=== PATIENT | female | born 1950 | race Caucasian/White ===

== ENCOUNTER → 2019-05-15 19:13 | Outpatient (CLI) | payer MEDICARE, OTHER, SELFPAY ==
--- NOTE | 2019-05-15 19:15 | DI.RAD.S_ITS ---
PROCEDURE: XR FOOT RT MIN 3V INDICATIONS: Right foot pain TECHNIQUE: 3 views of the foot were acquired. COMPARISON: [facility], , FOOT 3V RIGHT, 04/15/2016, 19:25. FINDINGS: Bones: No fractures or dislocations. No suspicious bony lesions. Accessory ossicle lateral to the cuboid bone. Soft tissues: No tibiotalar joint effusion. Achilles tendon appears normal. IMPRESSION: Accessory ossicle lateral to the cuboid bone, no fracture or traumatic subluxation found. Dictated by: Rafa Duron M.D. on 05/15/2019 at 19:52 Approved by: Rafa Duron M.D. on 05/15/2019 at 19:53
== END ==
PROVIDERS: Family Provider Registered Nurse; PCP Registered Nurse; Visit Provider Physician Assistant
DX: M79.671 Pain in right foot (principal)
CPT/HCPCS: 73630

== ENCOUNTER → 2019-09-09 15:27 | Outpatient (CLI) | payer MEDICARE, OTHER, SELFPAY ==
--- NOTE | 2019-09-09 | DI.RAD.S_ITS ---
PROCEDURE: XR CERVICAL SPINE 2V OR 3V INDICATIONS: CERVICALGIA TECHNIQUE: 3 view(s) of the cervical spine were acquired. COMPARISON: None. FINDINGS: Bones: No fractures or dislocations to the C7-T1 level. The lateral masses of C1 appear intact on the odontoid view. No suspicious bony lesions. Multilevel disc space narrowing is present most significant at C4-5, C5-6 and C6-7. Small anterior osteophytes are present. Multilevel uncovertebral arthropathy is present. Soft tissues: No prevertebral soft tissue swelling. IMPRESSION: Multilevel degenerative change most prominent from C4-5 through C6-7. Dictated by: Huma Bravo M.D. on 09/09/2019 at 16:59 Approved by: Huma Bravo M.D. on 09/09/2019 at 17:01
== END ==
PROVIDERS: PCP Registered Nurse; Visit Provider Registered Nurse
DX: M54.2 Cervicalgia (principal); M47.812 Spondylosis without myelopathy or radiculopathy, cervical region
CPT/HCPCS: 72040

== ENCOUNTER → 2020-11-24 14:10 | Outpatient (CLI) | payer MEDICARE, OTHER, SELFPAY ==
--- NOTE | 2020-11-24 14:17 | DI.RAD.S_ITS ---
PROCEDURE: XR LUMBAR SPINE 2-3V INDICATIONS: pain in shoulders and lumbar area TECHNIQUE: 3 views of the lumbar spine were acquired. COMPARISON: None. FINDINGS: Bones: No fracture. Multilevel degenerative endplate sclerosis and spurring. Diffuse facet arthropathy. Trace retrolisthesis of L1 on L2 and grade 1 antral anterolisthesis of L4 on L5. Moderate narrowing of the L5-S1 disc space as well as the T12-L1 and L1-L2 disc spaces. Minimal levocurvature. Soft tissues: Overlying bowel gas pattern is normal. No suspicious soft tissue calcifications. IMPRESSION: Diffuse lumbar spondylosis and facet disease. Multilevel spondylolisthesis as above. Dictated by: Poli Schuster M.D. on 11/24/2020 at 15:02 Approved by: Poli Schuster M.D. on 11/24/2020 at 15:06
--- NOTE | 2020-11-24 14:18 | DI.RAD.S_ITS ---
PROCEDURE: XR SHOULDER RT MIN 2V INDICATIONS: pain in shoulders and lumbar area TECHNIQUE: 3 views of the shoulder were acquired. COMPARISON: None. FINDINGS: Bones: No fracture. Mild AC and glenohumeral joint degeneration. Soft tissues: No suspicious soft tissue calcifications. IMPRESSION: Degenerative joint disease. If the patient's pain or other symptoms persist, consider further evaluation with MRI Dictated by: Poli Schuster M.D. on 11/24/2020 at 15:23 Approved by: Poli Schuster M.D. on 11/24/2020 at 15:29
--- NOTE | 2020-11-24 14:19 | DI.RAD.S_ITS ---
PROCEDURE: XR SHOULDER LT MIN 2V INDICATIONS: A TECHNIQUE: 3 views of the shoulder were acquired. COMPARISON: [facility], CR, CHEST 1 VIEW, 04/26/2017, 0:31 FINDINGS: Bones: [id number] left shoulder joint degeneration. No fracture Soft tissues: 5 mm loose body projects adjacent to the superior glenoid. IMPRESSION: [id number]-ju-[id number] left shoulder joint degeneration Possible loose body projects adjacent to the superior glenoid. Dictated by: Poli Schuster M.D. on 11/24/2020 at 15:17 Approved by: Poli Schuster M.D. on 11/24/2020 at 15:23
== END ==
PROVIDERS: PCP Registered Nurse; Referring Provider Registered Nurse; Visit Provider Registered Nurse
DX: M47.816 Spondylosis without myelopathy or radiculopathy, lumbar region (principal); M25.511 Pain in right shoulder; M25.512 Pain in left shoulder; M51.36 Other intervertebral disc degeneration, lumbar region
CPT/HCPCS: 72100; 73030

== ENCOUNTER 2021-01-15 17:25 | Observation (INO) | payer MEDICARE, OTHER, SELFPAY ==
[2021-01-15] VITALS (14 sets, daily range): BP systolic 116–133; BP diastolic 59–76; PULSE 62–86; RESP 18–27; TEMP 37.3; O2SAT 97–100; BMI 31.0
--- NOTE | 2021-01-15 18:43 | ED.ABDPAIN ---
HPI - Abdominal Pain General Chief Complaint: Abdominal Pain Stated Complaint: Lower Abdominal Time Seen by Provider: 01/15/21 18:26 Source: patient Mode of arrival: Family Vehicle Limitations: no limitations History of Present Illness HPI narrative: The patient has onset of lower abdominal pain, starting yesterday. She has decreased appetite. She denies nausea, vomiting diarrhea. She has normal BMs. She denies dysuria. She does have mild back pain. She had fever yesterday. She does have a history of pyelonephritis. However, pain seems to focus in the LLQ. She has no history of colitis. She has undergone a uterine suspension procedure, no other abdominal or pelvic surgeries. She has no chronic bowel disease. She has no headache, cough or sore throat. She denies dyspnea. Related Data Home Medications Medication Instructions Recorded Confirmed GLUCOSAMINE/CHONDROITIN SULF A 1 cap PO QDAY #0 04/15/16 01/15/21 levothyroxine 137 mcg PO QDAY #90 04/15/16 01/15/21 liothyronine [Cytomel] 5 mcg PO BID #0 tab 04/15/16 01/15/21 lutein 20 mg PO QDAY #0 04/15/16 01/15/21 lysine 500 mg PO QDAY #0 04/15/16 01/15/21 estradiol 1 applic VAGINAL 2XW 12/08/20 01/15/21 Allergies Allergy/AdvReac Type Severity Reaction Status Date / Time ampicillin [AMPICILLIN] Allergy Unknown Verified 01/15/21 17:45 hydrocodone [HYDROCODONE] Allergy Unknown Verified 01/15/21 17:45 morphine [MORPHINE] Allergy Unknown Verified 01/15/21 17:45 Penicillins [PENICILLINS] Allergy Unknown Verified 01/15/21 17:45 Sulfa (Sulfonamide Allergy Unknown Verified 01/15/21 17:45 Antibiotics) [SULFA (SULFONAMIDE ANTIBIOTICS)] Review of Systems Constitutional Constitutional: Reports body ache(s), Denies chills, Reports fatigue, Denies fever(s), Denies headache(s) and Denies weakness ENT Ears, Nose, Mouth, and Throat: Denies vertigo, Denies dizziness, Denies headache(s) and Denies mouth pain Cardiovascular Cardiovascular: Denies chest pain, Denies lightheadedness and Denies dyspnea Respiratory Respiratory: Denies cough, Denies dyspnea and Denies wheezing Gastrointestinal Gastrointestinal: Reports as per HPI Genitourinary Genitourinary: Denies dysuria Genitourinary: Denies dysuria Musculoskeletal Musculoskeletal: Denies back pain Integumentary/Breasts Skin/Breast: Denies lesions and Denies rash Neurologic Neurologic: Denies vertigo, Denies dizziness, Denies headache(s) and Denies weakness Psychiatric Psychiatric: Reports anxiety Endocrine Endocrine: Reports fatigue Allergic/Immunologic Allergic/Immunologic: Denies wheezing Patient History Medical History Hypothyroidism Surgical History History of uterine suspension procedure Social History household members: none Smoking Status: Never smoker alcohol intake: current Smoking Status: Never smoker alcohol intake frequency: 0-2 drinks per day Substance Use Type: does not use Exam Initial Vital Signs Initial Vital Signs: Vital Signs Temperature 99.1 F 01/15/21 17:41 Pulse Rate 86 01/15/21 17:41 Respiratory Rate 18 01/15/21 17:41 Blood Pressure 133/69 01/15/21 17:41 Pulse Oximetry 98 01/15/21 17:41 Const General: cooperative and well developed Nutritional Appearance: well nourished [facility] Head: normocephalic and atraumatic Eyes Conjunctivae: other (No icterus) Resp Auscultation: clear to auscultation bilaterally Cardio Rate: regular rate Rhythm: regular rhythm Heart Sounds: S1 normal and S2 normal GI Other: L LQ tenderness with guarding, no rebound. No palpable masses. Normal bowel sounds. No masses. Back/Spine/Pelvis Back: No CVA tenderness Skin Lesions: no lesions Rashes: no rashes Neuro General: patient alert, patient oriented x3, gait normal and no focal motor deficits Speech: speech normal Extrem General: full ROM, no clubbing, cyanosis or edema, no pedal edema and no calf tenderness Psych Appearance: well kempt Mental Status: mental status grossly normal Attitude: cooperative Thought Content: normal and suicidality Judgment: judgment good Course Course Course Narrative: The patient was found to have sigmoid diverticulitis with microperforation. She was started on Levaquin and Flagyl. The patient has great anxiety. She initially denied an IV. She was trying to hand pick antibiotics claim she had many allergies. She wanted to not receive contrast because of fear of allergies. Benadryl was given prior to contrast, there were no complications. Similar conversations occur discussing the diagnosis, as well as the need for antibiotics she is not familiar with. She eventually agreed to receive medications. Hospitalist, LINETTE Schuster was contacted for the admission. Surgery, , was consulted. The patient will likely be effectively treated with IV antibiotics, the surgery will follow the case. Orders Ordered: Acetaminophen (Acetaminophen 325 Mg Tablet) 650 mg PO Q6HR PRN PRN Reason: Fever/Mild Pain (1-3) Enoxaparin Sodium (Enoxaparin 40 Mg/0.4 Ml Syringe) 40 mg SUBCUT DAILY HELEN Sodium Chloride (Normal Saline 0.9%) 1,000 mls @ 100 mls/hr IV CONT HELEN Last Admin: 01/16/21 05:38 Dose: 100 mls/hr Documented by: ABHAY Ciprofloxacin (Cipro) 400 mg in 200 mls @ 200 mls/hr IV Q12H HELEN Metronidazole (Flagyl) 500 mg in 100 mls @ 100 mls/hr IV Q6H HELEN Last Admin: 01/16/21 05:38 Dose: 100 mls/hr Documented by: ABHAY Levothyroxine Sodium (Levothyroxine 137 Mcg Tablet) 137 mcg PO Q24H HELEN Liothyronine Sodium (Liothyronine 5 Mcg Tablet) 5 mcg PO BID HELEN Naloxone HCl (Naloxone 0.4 Mg/Ml Vial) 0.2 mg IV Q2MIN PRN PRN Reason: Opiate Reversal Ondansetron HCl (Ondansetron 4 Mg/2 Ml Inj) 4 mg IV Q8HR PRN PRN Reason: Nausea And Vomiting Last Admin: 01/16/21 01:40 Dose: 4 mg Documented by: ABHAY Discontinued Medications Diphenhydramine HCl (Diphenhydramine 50 Mg/Ml Vial) 25 mg IV NOW ONE Stop: 01/15/21 20:56 Last Admin: 01/15/21 21:14 Dose: 25 mg Documented by: LANA Diphenhydramine HCl (Diphenhydramine 50 Mg/Ml Vial) 25 mg IV NOW ONE Stop: 01/15/21 22:17 Last Admin: 01/15/21 22:29 Dose: 25 mg Documented by: LANA Sodium Chloride (Normal Saline 0.9%) 1,000 mls @ 100 mls/hr IV CONT [facility] [place] Last Infusion: 01/16/21 00:38 Dose: 100 mls/hr Documented by: Infusion: 01/15/21 23:40 Dose: 0 mls/hr Documented by: Admin: 01/15/21 21:42 Dose: 250 mls/hr Documented by: LANA Levofloxacin (Levaquin) 500 mg in 100 mls @ 100 mls/hr IV NOW ONE Stop: 01/15/21 23:15 Last Infusion: 01/16/21 00:37 Dose: 0 mls/hr Documented by: Infusion: 01/15/21 22:40 Dose: 0 mls/hr Documented by: Admin: 01/15/21 22:25 Dose: 100 mls/hr Documented by: LANA Metronidazole (Flagyl) 500 mg in 100 mls @ 100 mls/hr IV NOW ONE Stop: 01/15/21 23:15 Last Admin: 01/16/21 00:39 Dose: 100 mls/hr Documented by: ABHAY Levothyroxine Sodium (Levothyroxine 137 Mcg Tablet) 137 mcg PO Q24H [facility] Last Admin: 01/16/21 01:58 Dose: Not Given Documented by: ABHAY Levothyroxine Sodium (Levothyroxine 112 Mcg Tablet) 112 mcg PO NOW ONE Stop: 01/16/21 05:31 Last Admin: 01/16/21 05:38 Dose: 112 mcg Documented by: ABHAY Levothyroxine Sodium (Levothyroxine 25 Mcg Tablet) 25 mcg PO NOW ONE Stop: 01/16/21 05:31 Last Admin: 01/16/21 05:38 Dose: 25 mcg Documented by: ABHAY Vital Signs Vital signs: Vital Signs - 8 hr 01/15/21 17:41 01/15/21 18:10 01/15/21 18:30 Temperature 99.1 F Pulse Rate 86 73 70 Respiratory Rate 18 24 26 H Blood Pressure 133/69 Pulse Oximetry 98 97 97 01/15/21 19:00 01/15/21 19:18 01/15/21 19:30 Temperature Pulse Rate 69 68 67 Respiratory Rate 25 H 27 H 22 Blood Pressure 131/62 120/60 Pulse Oximetry 98 100 98 01/15/21 20:00 01/15/21 20:30 01/15/21 21:00 Temperature Pulse Rate 67 62 71 Respiratory Rate 22 21 22 Blood Pressure 116/59 L 122/62 120/67 Pulse Oximetry 98 99 100 MDM - Abdominal Pain Lab Data Result diagrams: 01/16/21 05:24 01/16/21 05:24 Labs: Lab Results 01/15/21 01/15/21 01/15/21 Range/Units 18:30 18:30 18:30 WBC 10.1 (4.5-11.0) X10^3/uL RBC 4.16 (4.0-5.2) X10^6/uL Hgb 12.6 (12.0-16.0) g/dL Hct 37.0 (36-46) % MCV 88.8 (80-100) fL MCH 30.3 (26-34) PG MCHC 34.1 (30-36) % RDW 13.7 (11.6-14.8) % Plt Count 248 (150-400) X10^3/uL Neut % (Auto) 71.3 (50-75) % Lymph % (Auto) 19.3 L (25-40) % [place] % (Auto) 8.0 (3-14) % Eos % (Auto) 0.8 L (2-4) % Baso % (Auto) 0.6 (0-2) % Neut # (Auto) 7200 H (4835-5600) /uL Lymph # (Auto) 2000 (7612-2297) /uL [place] # (Auto) 800 (0-900) /uL Eos # (Auto) 100 (0-450) /uL Baso # (Auto) 100 (0-100) /uL PT 12.1 (10.1-12.7) SECONDS INR 1.1 (0.9-1.3) APTT 32 (26.4-36.2) SECONDS Sodium 137 (137-145) mmol/L Potassium 3.8 (3.4-5.1) mmol/L Chloride 105 (98-107) mmol/L Carbon Dioxide 24 (22-32) mmol/L BUN 12 (7-17) mg/dL Creatinine 0.76 (0.52-1.04) mg/dL Estimated GFR > 60.0 (>60) mL/min BUN/Creatinine Ratio 15.8 (6-22) Glucose 99 (80-110) mg/dL Calcium 9.5 (8.4-10.2) mg/dL Total Bilirubin 0.6 (0.2-1.3) mg/dL AST 50 H (14-36) IU/L ALT 38 H (<35) IU/L Alkaline Phosphatase 72 (38-126) U/L Total Protein 7.3 (6.3-8.2) g/dL Albumin 4.1 (3.5-5.0) g/dL Globulin 3.2 (1.7-4.1) g/dL Albumin/Globulin Ratio 1.3 (1.0-2.8) Lipase 33 (23-300) U/L SARS-CoV-2 (PCR) (Negative) 01/15/21 Range/Units 22:40 WBC (4.5-11.0) X10^3/uL RBC (4.0-5.2) X10^6/uL Hgb (12.0-16.0) g/dL Hct (36-46) % MCV (80-100) fL MCH (26-34) PG MCHC (30-36) % RDW (11.6-14.8) % Plt Count (150-400) X10^3/uL Neut % (Auto) (50-75) % Lymph % (Auto) (25-40) % [place] % (Auto) (3-14) % Eos % (Auto) (2-4) % Baso % (Auto) (0-2) % Neut # (Auto) (8992-1819) /uL Lymph # (Auto) (8523-6135) /uL [place] # (Auto) (0-900) /uL Eos # (Auto) (0-450) /uL Baso # (Auto) (0-100) /uL PT (10.1-12.7) SECONDS INR (0.9-1.3) APTT (26.4-36.2) SECONDS Sodium (137-145) mmol/L Potassium (3.4-5.1) mmol/L Chloride (98-107) mmol/L Carbon Dioxide (22-32) mmol/L BUN (7-17) mg/dL Creatinine (0.52-1.04) mg/dL Estimated GFR (>60) mL/min BUN/Creatinine Ratio (6-22) Glucose (80-110) mg/dL Calcium (8.4-10.2) mg/dL Total Bilirubin (0.2-1.3) mg/dL AST (14-36) IU/L ALT (<35) IU/L Alkaline Phosphatase (38-126) U/L Total Protein (6.3-8.2) g/dL Albumin (3.5-5.0) g/dL Globulin (1.7-4.1) g/dL Albumin/Globulin Ratio (1.0-2.8) Lipase (23-300) U/L SARS-CoV-2 (PCR) Negative (Negative) Point of care testing: Urine Dip Bedside Urine Glucose Negative Bedside Urine Bilirubin - Negative Bedside Urine Ketone - Negative Urine Specific [place] 1.015 Bedside Urine Occult Blood - Negative Bedside Urine pH 6.0 Bedside Urine Protein - Negative Bedside Urine Urobilinogen - Negative Bedside Urine Nitrite - Negative Bedside Urine Leukocytes - Negative Esterase Imaging Data CT scan - abdomen/pelvis: Radiologist's Impression: Sigmoid diverticulitis with microperforation. Critical Care Time Critical Care Time Critical Care Time: Yes Total Critical Care Time: 45 Attestation: Critical care time included initial evaluation of patient, evaluation of lab in radiology data, and clinical decision making. I a discussed the clinical station with the patient. I made necessary calls to admitting and consulting physicians. Discharge Plan Departure Patient Disposition: Admitted as Observation Clinical Impression: Diverticulitis of intestine with perforation Qualifiers: Diverticulitis site: large intestine Diverticulitis bleeding: without bleeding Qualified Code(s): K57.20 - Diverticulitis of large intestine with perforation and abscess without bleeding Admit Date/Time: 01/15/21 22:42 Admit Provider: Nusrat Schuster
[2021-01-15 18:48] LABS: Add Manual Diff / Slide Review NO; Basophils Absolute Auto 100 /uL (0-100); Basophils Percent Auto 0.6 % (0-2); Eosinophils Absolute Auto 100 /uL (0-450); Eosinophils Percent Auto 0.8 % (2-4); Hemoglobin 12.6 g/dL (12.0-16.0); Lymphocytes Absolute Auto 2000 /uL (1100-4500); Lymphocytes Percent Auto 19.3 % (25-40); Mean Corpuscular HGB Conc 34.1 % (30-36); Mean Corpuscular Hemoglobin 30.3 PG (26-34); Mean Corpuscular Volume 88.8 fL (80-100); Monocytes Absolute Auto 800 /uL (0-900); Neutrophils Absolute Auto 7200 /uL (1500-7000); Neutrophils Percent Auto 71.3 % (50-75); Platelet Count 248 X10^3/uL (150-400); Red Blood Cell Count 4.16 X10^6/uL (4.0-5.2); Red Cell Distribution Width 13.7 % (11.6-14.8); White Blood Cell Count 10.1 X10^3/uL (4.5-11.0)
[2021-01-15 19:00] LABS: INR 1.1 (0.9-1.3); Prothrombin Time 12.1 SECONDS (10.1-12.7)
[2021-01-15 19:02] LABS: PTT Partial Thromboplastin Tim 32 SECONDS (26.4-36.2)
[2021-01-15 19:04] LABS: Alanine Aminotransferase 38 IU/L (<35); Albumin 4.1 g/dL (3.5-5.0); Albumin Globulin Ratio 1.3 (1.0-2.8); Alkaline Phosphatase 72 U/L (38-126); Aspartate Aminotransferase 50 IU/L (14-36); BUN Creatinine Ratio 15.8 (6-22); Bilirubin Total 0.6 mg/dL (0.2-1.3); Blood Urea Nitrogen 12 mg/dL (7-17); Calcium 9.5 mg/dL (8.4-10.2); Carbon Dioxide 24 mmol/L (22-32); Chloride 105 mmol/L (98-107); Estimated Glomerular Filt Rate > 60.0 mL/min (>60); Globulin 3.2 g/dL (1.7-4.1); Glucose 99 mg/dL (80-110); HEMOLYSIS 26 (0-50); Lipase 33 U/L (23-300); Potassium 3.8 mmol/L (3.4-5.1); Sodium 137 mmol/L (137-145); Total Protein 7.3 g/dL (6.3-8.2)
--- NOTE | 2021-01-15 20:54 | DI.CT.S_ITS ---
PROCEDURE: CT ABDOMEN PELVIS W CON INDICATIONS: LLq pain TECHNIQUE: After the administration of intravenous contrast, 5 mm thick sections acquired from the diaphragm to the symphysis. 5 mm coronal and sagittal reformats were acquired. For radiation dose reduction, the following was used: automated exposure control, adjustment of mA and/or kV according to patient size. COMPARISON: None. FINDINGS: Image quality: There is mild motion artifact. ABDOMEN: Lung bases: Lung bases are clear. Heart size is normal. There is a small hiatal hernia. Solid organs: A small hypodensity is demonstrated in the right hepatic lobe, measuring up to 0.5 cm. Finding is too small to characterize but likely represents a cyst. The gallbladder appears within normal limits without calcified gallstones. Biliary system is non-dilated. There are small punctate calcifications within the pancreatic head suggesting sequelae of chronic pancreatitis. No peripancreatic fat stranding or fluid collections. No pancreatic duct dilatation. The spleen is normal in size. No adrenal nodules. Kidneys demonstrate no hydronephrosis. There are bilateral extrarenal pelves. The ureters are nondistended. Peritoneum and bowel: Small bowel loops demonstrate normal wall thickness and caliber. The appendix is normal in appearance. There is colonic diverticulosis with associated diverticular and colonic wall thickening in the sigmoid colon associated with pericolonic fat stranding and a small amount of adjacent free fluid. Findings are consistent with acute diverticulitis. No discrete diverticular abscess. There are a few adjacent punctate hypodense foci suggestive of free air. Nodes and vessels: No retroperitoneal or mesenteric adenopathy by size criteria. Aorta and inferior vena cava are normal in size. Miscellaneous: No ventral hernias. PELVIS: Genitourinary: Bladder wall thickness is normal. Miscellaneous: No inguinal hernias or adenopathy. Bones: No suspicious bony lesions. No vertebral body compression fractures. IMPRESSION: 1. Sigmoid diverticulitis without evidence of diverticular abscess. A few adjacent punctate foci of suspected free air are suggestive of micro perforation. Dictated by: Jose Juan Schmidt M.D. on 01/15/2021 at 21:41 Approved by: Jose Juan Schmidt M.D. on 01/15/2021 at 21:45
[2021-01-15] MEDS: diphenhydrAMINE 50 MG/ML VIAL 25 MG IV ×2 (21:14→22:29)
[2021-01-15] MEDS: SODIUM CHLORIDE 0.9% 1,000 ML 250 ML IV (21:42)
[2021-01-15] MEDS: levoFLOXacin 500 MG/100 ML PIGGYBACK 100 MG IV (22:25)
[2021-01-15 23:44] LABS: COVID19 - ADMIT (NP swab/PCR) Negative (Negative)
--- NOTE | 2021-01-15 23:48 | PC.NURSE ---
Pt to room 225 from E.R. via stretcher. Able to transfer and toilet self independently. Ice chips provided to pt per request. BL calf scd's placed with rationale provided to pt. IV levaquin infusing as per E.R. to left ac iv site without difficulty. Pt oriented to call light and instructed not to attempt out of bed independently.
[2021-01-16 00:16] VITALS: BP 135/72; PULSE 84; RESP 16; TEMP 36.7; O2SAT 100
[2021-01-16] MEDS: metroNIDAZOLE 500 MG/100 ML PIGGYBACK 100 MG IV ×3 (00:39→12:16)
--- NOTE | 2021-01-16 00:46 | P.HP_ITS ---
History of Present Illness History of Present Illness Date Patient Seen: 01/16/21 Time Patient Seen: 00:46 Chief complaint: Lower Abdominal Narrative: Angelica Stewart is a 71-year-old female with hypothyroidism and a number of different medication and food allergies presented with lower abdominal pain and fever for 2 days. She thought that she had a fever of 100 yesterday and then checked again today and was 99. The patient states her normal temperature runs 97 so if it goes up to 98 she feels febrile. She had planned wait till Sunday to see her PCP. I noted her chart that she has seen her PCP for bladder issues. She denies difficulty breathing, chest pain, upper abdominal pain, dysuria, diarrhea or constipation, she does have chronic eczema and seasonal and other types of allergies. CT ordered in the ED indicated diverticulitis with small amount of bowel wall thickening ?A few adjacent punctate foci of suspected free air are suggestive of micro perforation. She is afebrile, blood pressure 135/72, heart rate 84, respiratory rate 16, oxygen saturation of 100% on room air, she weighs 92.7 kg with a BMI of 31. She has no white count the rest of her CBC and BMP are unremarkable, she does have mildly elevated liver enzymes, AST is 50 ALT is 38. Lipase was within normal limits and COVID-19 PCR was negative. Patient History Medical History Hypothyroidism Surgical History History of uterine suspension procedure Family & Social History Social History: household members none Prior Living Arrangements House Safety & Behavioral: Feels Safe in Current Yes Environment Been Physically Hurt or No Threatened By a Person Suicidal Ideation Description None Suicide Plan Description No Plan Tobacco & Substance use: Smoking Status Never smoker alcohol intake current alcohol intake frequency a few times a month Substance Use Type does not use Meds Home Medications and Allergies Home Medications Medication Instructions Recorded Confirmed Type GLUCOSAMINE/CHONDROITIN SULF A 1 cap PO QDAY #0 04/15/16 01/15/21 History levothyroxine 137 mcg PO QDAY #90 04/15/16 01/15/21 History liothyronine [Cytomel] 5 mcg PO BID #0 tab 04/15/16 01/15/21 History lutein 20 mg PO QDAY #0 04/15/16 01/15/21 History lysine 500 mg PO QDAY #0 04/15/16 01/15/21 History estradiol 1 applic VAGINAL 2XW 12/08/20 01/15/21 History Allergies Allergy/AdvReac Type Severity Reaction Status Date / Time ampicillin [AMPICILLIN] Allergy Unknown Verified 01/15/21 17:45 hydrocodone [HYDROCODONE] Allergy Unknown Verified 01/15/21 17:45 morphine [MORPHINE] Allergy Unknown Verified 01/15/21 17:45 Penicillins [PENICILLINS] Allergy Unknown Verified 01/15/21 17:45 Sulfa (Sulfonamide Allergy Unknown Verified 01/15/21 17:45 Antibiotics) [SULFA (SULFONAMIDE ANTIBIOTICS)] Review of Systems Review of Systems ROS: Yes All systems reviewed with the patient and are negative except as otherwise documented Exam Vital Signs (past 8 hours): - 01/15/21 17:41 01/15/21 18:10 01/15/21 18:30 Temperature 99.1 F Pulse Rate 86 73 70 Respiratory Rate 18 24 26 H Blood Pressure 133/69 Pulse Oximetry 98 97 97 01/15/21 19:00 01/15/21 19:18 01/15/21 19:30 Temperature Pulse Rate 69 68 67 Respiratory Rate 25 H 27 H 22 Blood Pressure 131/62 120/60 Pulse Oximetry 98 100 98 01/15/21 20:00 01/15/21 20:30 01/15/21 21:00 Temperature Pulse Rate 67 62 71 Respiratory Rate 22 21 22 Blood Pressure 116/59 L 122/62 120/67 Pulse Oximetry 98 99 100 01/15/21 21:38 01/15/21 21:39 01/15/21 22:00 Temperature Pulse Rate 71 72 70 Respiratory Rate 27 H 20 25 H Blood Pressure 122/76 120/59 L Pulse Oximetry 99 99 98 01/15/21 22:30 01/16/21 00:16 Temperature 98.0 F Pulse Rate 83 84 Respiratory Rate 24 16 Blood Pressure 122/72 135/72 Pulse Oximetry 99 100 Oxygen Delivery Method Room Air Oxygen Flow Rate 0 Narrative Exam Narrative: Gen: Alert, oriented, well-developed 71 y.o. female, NAD HEENT: normocephalic, atraumatic, conjunctiva clear, sclera non-icteric, oral mucosa pink and moist Neck: supple, full ROM, no JVD, trachea is midline Resp: Lungs CTA, non-labored breathing CV: RRR, no murmur or rubs Abd: soft, non-tender, normoactive BTs Skin: no lesions or rashes, dry and intact Neuro: Alert and oriented X 4 w/no focal deficits. Speech clear and coherent. Extremities: moves all 4 extremities, is ambulatory, negative Kaelyn?s sign Psyche: very pleasant, normal mood and affect. Objective Labs Result Diagrams: 01/15/21 18:30 01/15/21 18:30 Labs: Laboratory Results - last 24 hr 01/15/21 01/15/21 01/15/21 18:30 18:30 18:30 WBC 10.1 RBC 4.16 Hgb 12.6 Hct 37.0 MCV 88.8 MCH 30.3 MCHC 34.1 RDW 13.7 Plt Count 248 Neut % (Auto) 71.3 Lymph % (Auto) 19.3 L [place] % (Auto) 8.0 Eos % (Auto) 0.8 L Baso % (Auto) 0.6 Neut # (Auto) 7200 H Lymph # (Auto) 2000 [place] # (Auto) 800 Eos # (Auto) 100 Baso # (Auto) 100 PT 12.1 INR 1.1 APTT 32 Sodium 137 Potassium 3.8 Chloride 105 Carbon Dioxide 24 BUN 12 Creatinine 0.76 Estimated GFR > 60.0 BUN/Creatinine Ratio 15.8 Glucose 99 Calcium 9.5 Total Bilirubin 0.6 AST 50 H ALT 38 H Alkaline Phosphatase 72 Total Protein 7.3 Albumin 4.1 Globulin 3.2 Albumin/Globulin Ratio 1.3 Lipase 33 SARS-CoV-2 (PCR) 01/15/21 22:40 WBC RBC Hgb Hct MCV MCH MCHC RDW Plt Count Neut % (Auto) Lymph % (Auto) [place] % (Auto) Eos % (Auto) Baso % (Auto) Neut # (Auto) Lymph # (Auto) [place] # (Auto) Eos # (Auto) Baso # (Auto) PT INR APTT Sodium Potassium Chloride Carbon Dioxide BUN Creatinine Estimated GFR BUN/Creatinine Ratio Glucose Calcium Total Bilirubin AST ALT Alkaline Phosphatase Total Protein Albumin Globulin Albumin/Globulin Ratio Lipase SARS-CoV-2 (PCR) Negative Assessment & Plan Assessment & Plan narrative: Angelica Stewart will be placed in observation for further treatment and management f or a first time acute diverticulitis. Diverticulitis with suspected microperforation, acute present on admission - She will receive Cipro 400 mg IV bid and metronidizole 500 mg po qid - Clears, advance as tolerated - Dr. Child has been contacted for consult Hypothyroidism, chronic and stable, present on admission - Continue home dsoes of levothyroxine 137 mg po qam and liothronine 5 mc po bid VTE prophylaxis: Wells risk score: 0 Enoxaparin 40 mg subQ daily Consults: none Dr. Child was notified in the ED and will see the patient in the am consult and involvement is appreciated. Patient is observation status as her stay is not likely to exceed 2 midnights. FEN: IV NS at 100 ml/hour, clears, BMP and magnesium in the am. Dispo: probable discharge to home with home antibiotics if able to tolerate a full liquid diet Code Status: Full code as discussed with patient COVID-19 COVID-19 status: Negative Result date/Date tested (Pos, Neg/Pending): 01/15/21 Scores Wells' Criteria for PE Clinical signs and symptoms of DVT: No PE is #1 Dx or equally likely: No Heart rate > 100: No Immobilization at least 3 days or surg in previous 4 weeks: No History of PE or DVT: No Hemoptysis: No Malignancy w/Treatment within 6 months or palliative: No Wells' PE Score total: 0 Quality VTE Deep Vein Thrombosis/Pulmonary Embolism Present on Admission: No MIPS - Admit I confirm the patient?s Advance Care Plan is present, Code status is documented, Surrogate decision maker is in patient?s record [If Yes, STOP here]: Yes
[2021-01-16] MEDS: ONDANSETRON 4 MG/2 ML INJ IV (01:40)
[2021-01-16] MEDS: LEVOTHYROXINE 25 MCG TABLET PO (05:38)
[2021-01-16] MEDS: LEVOTHYROXINE 112 MCG TABLET PO (05:38)
[2021-01-16] MEDS: SODIUM CHLORIDE 0.9% 1,000 ML 100 ML IV (05:38)
[2021-01-16 06:08] LABS: Add Manual Diff / Slide Review NO; Basophils Absolute Auto 0 /uL (0-100); Basophils Percent Auto 0.6 % (0-2); Eosinophils Absolute Auto 100 /uL (0-450); Eosinophils Percent Auto 1.2 % (2-4); Hematocrit 36.3 % (36-46); Lymphocytes Absolute Auto 2400 /uL (1100-4500); Lymphocytes Percent Auto 31.8 % (25-40); Mean Corpuscular HGB Conc 33.2 % (30-36); Mean Corpuscular Hemoglobin 29.6 PG (26-34); Mean Corpuscular Volume 89.3 fL (80-100); Monocytes Absolute Auto 600 /uL (0-900); Monocytes Percent Auto 7.9 % (3-14); Neutrophils Absolute Auto 4500 /uL (1500-7000); Neutrophils Percent Auto 58.5 % (50-75); Platelet Count 241 X10^3/uL (150-400); Red Blood Cell Count 4.07 X10^6/uL (4.0-5.2); Red Cell Distribution Width 13.8 % (11.6-14.8); White Blood Cell Count 7.7 X10^3/uL (4.5-11.0)
[2021-01-16 06:14] LABS: BUN Creatinine Ratio 14.7 (6-22); Blood Urea Nitrogen 11 mg/dL (7-17); Calcium 8.9 mg/dL (8.4-10.2); Carbon Dioxide 23 mmol/L (22-32); Chloride 108 mmol/L (98-107); Estimated Glomerular Filt Rate > 60.0 mL/min (>60); Glucose 91 mg/dL (80-110); HEMOLYSIS < 15 (0-50); Potassium 3.9 mmol/L (3.4-5.1); Sodium 139 mmol/L (137-145)
[2021-01-16 07:00] VITALS: O2SAT 98
[2021-01-16 08:05] VITALS: BP 113/68; PULSE 63; RESP 16; TEMP 36.5; O2SAT 98
[2021-01-16] MEDS: LIOTHYRONINE 5 MCG TABLET PO (08:31)
--- NOTE | 2021-01-16 08:34 | CM.DANOTE ---
DCP: Case received, EMR reviewed and met with patient. Introduced self and role. Was able to obtain information regarding patient's baseline activity level prior to hospitalization. DCP assessment completed with information currently available. Patient is a 71 year old female who admitted yesterday evening to the care of the hospitalist team. PCP: Kade SUE[facility]. Payer: confirmed: Medicare/[employer] Insurance. Patient came to the hospital via private vehicle secondary to having abdominal pain, as well as nausea and vomiting. he holds current diagnosis of sigmoid diverticulitis with no abscess. Patient also had a fever upon admission. Met with patient in her room. She was awake, alert and oriented sitting up in her bed, pleasant. Confirmed that she resides here in [place] alone, and is independent at her baseline, drives, no DME used. sHE IS anxious to see the surgeon to discuss her actual diagnosis. P: DCP to continue to follow for any needs. Patient should be able to go home when she is medically stable. Brigiad Pavon RN/[employer] Operator
--- NOTE | 2021-01-16 09:41 | PC.NURSE ---
Addendum entered by Andreea Jaeger R.N. 01/16/21 14:45: Patient tolerated full liquid diet for lunch, no abdominal pain, belching, N/V. Patient readied for discharge. Instructions given regarding f/u appointment with PCP and colonoscopy in a couple months, new abx prescriptions, diet and activity. Patient verbalized understanding. Belongings retrieved from the safe. IV removed, patient tolerated. Patient discharged via wheelchair with aide assist. Original Note: Patient A/Ox 4, resting in bed. BT active x 4, at this time patient denies abdominal pain unless LLQ palpitated. Patient tolerating clear liquid diet without N/V. Up to restroom to void. Lungs CTA, patient at 98% on RA. Pulses equal bilaterally, heart sounds WNL. Denies dizziness, lightheadedness, chest pain or weakness. Patient taking break from SCD's. Refused Lovenox after education. Ambulating independently in the room. Call light in reach.
--- NOTE | 2021-01-16 10:52 | P.CONS_ITS ---
History of Present Illness Consult details Date Patient Seen: 01/16/21 Time Patient Seen: 10:52 Chief complaint: Lower Abdominal Reason for consult: Diverticulitis Requesting provider: Nusrat Schuster Narrative: This is a 71 yo woman who came into the ER last night with 2 days of lower abdominal pain. In the ER she was found to have a normal WBC, and low grade temp. CT scan revealed diverticulitis with minimal bowel wall thickening and possible tiny foci of suspected free air, suggestive of micro perforation. She was admitted overnight, and started on IV abx. She says her pain is much better today. She reports her last colonoscopy was 2-3 years ago, and she was told she had a few diverticula, but nothing major. She does not use a bowel regimen or any fiber supplement. ROS: Denies difficulty breathing, chest pain, upper abdominal pain, dysuria, diarrhea or constipation, she does have chronic eczema and seasonal and other types of allergies. PE: GENERAL: Alert, comfortable. Nontoxic appearing. Appears stated age. Answers questions promptly and appropriately. Vital signs noted. HENT: Normocephalic, atraumatic. Hearing intact. EYES: Conjunctiva pink, sclera white, no periorbital swelling. CARDIOVASCULAR: Regular rate. No pedal edema. RESPIRATORY: Non-tachypneic, breathing comfortably on room air. GASTROINTESTINAL: Abdomen soft, NTND GENITALURINARY: No flank tenderness. MUSCULOSKELETAL: Equal tone and mass bilaterally. SKIN: Warm, dry, soft, appropriate color for ethnicity. No other lesions, rashes, or wounds. NEURO: Alert and Oriented X 3. No gross sensory deficits, or cognitive issues. PSYCH: Appropriate affect and mood. Meds Home Medications and Allergies Home Medications Medication Instructions Recorded Confirmed Type GLUCOSAMINE/CHONDROITIN SULF A 1 cap PO QDAY #0 04/15/16 01/15/21 History levothyroxine 137 mcg PO QDAY #90 04/15/16 01/15/21 History liothyronine [Cytomel] 5 mcg PO BID #0 tab 04/15/16 01/15/21 History lutein 20 mg PO QDAY #0 04/15/16 01/15/21 History lysine 500 mg PO QDAY #0 04/15/16 01/15/21 History estradiol 1 applic VAGINAL 2XW 12/08/20 01/15/21 History Allergies Allergy/AdvReac Type Severity Reaction Status Date / Time ampicillin [AMPICILLIN] Allergy Unknown Verified 01/15/21 17:45 hydrocodone [HYDROCODONE] Allergy Unknown Verified 01/15/21 17:45 morphine [MORPHINE] Allergy Unknown Verified 01/15/21 17:45 Penicillins [PENICILLINS] Allergy Unknown Verified 01/15/21 17:45 Sulfa (Sulfonamide Allergy Unknown Verified 01/15/21 17:45 Antibiotics) [SULFA (SULFONAMIDE ANTIBIOTICS)] Exam Vital Signs (past 8 hours): - 01/16/21 07:00 01/16/21 08:05 Temperature 97.7 F Pulse Rate 63 Respiratory Rate 16 Blood Pressure 113/68 Pulse Oximetry 98 98 Oxygen Delivery Method Room Air Oxygen Flow Rate [address] scan - abdomen: Radiologist's impression: [address] [id number] Scan ReportSigned Patient: Angelica Stewart MMR#: [id number]: 2Acct:[id number]/Sex: 71 / FDate of Service: 01/15/21Loc: EDAccession Number: [id number] Procedure: CT abdomen pelvis w con Ordering Provider: Timoteo Blair MD PROCEDURE: CT ABDOMEN PELVIS W CON INDICATIONS: LLq pain TECHNIQUE: After the administration of intravenous contrast, 5 mm thick sections acquired from the diaphragm to the symphysis. 5 mm coronal and sagittal reformats were acquired. For radiation dose reduction, the following was used: automated exposure control, adjustment of mA and/or kV according to patient size. COMPARISON: None. FINDINGS: Image quality: There is mild motion artifact. ABDOMEN: Lung bases: Lung bases are clear. Heart size is normal. There is a small hiatal hernia. Solid organs: A small hypodensity is demonstrated in the right hepatic lobe, measuring up to 0.5 cm. Finding is too small to characterize but likely represents a cyst. The gallbladder appears within normal limits without calcified gallstones. Biliary system is non-dilated. There are small punctate calcifications within the pancreatic head suggesting sequelae of chronic pancreatitis. No peripancreatic fat stranding or fluid collections. No pancreatic duct dilatation. The spleen is normal in size. No adrenal nodules. Kidneys demonstrate no hydronephrosis. There are bilateral extrarenal pelves. The ureters are nondistended. Peritoneum and bowel: Small bowel loops demonstrate normal wall thickness and caliber. The appendix is normal in appearance. There is colonic diverticulosis with asso ciated diverticular and colonic wall thickening in the sigmoid colon associated with pericolonic fat stranding and a small amount of adjacent free fluid. Findings are consistent with acute diverticulitis. No discrete diverticular abscess. There are a few adjacent punctate hypodense foci suggestive of free air. Nodes and vessels: No retroperitoneal or mesenteric adenopathy by size criteria. Aorta and inferior vena cava are normal in size. Miscellaneous: No ventral hernias. PELVIS: Genitourinary: Bladder wall thickness is normal. Miscellaneous: No inguinal hernias or adenopathy. Bones: No suspicious bony lesions. No vertebral body compression fractures. IMPRESSION: 1. Sigmoid diverticulitis without evidence of diverticular abscess. A few adjacent punctate foci of suspected free air are suggestive of micro perforation. Dictated by: Jose Juan Schmidt M.D. on 01/15/2021 at 21:41 Approved by: Jose Juan Schmidt M.D. on 01/15/2021 at 21:45 Labs Result Diagrams: 01/16/21 05:24 01/16/21 05:24 Labs: Laboratory Results - last 24 hr 01/15/21 01/15/21 01/15/21 18:30 18:30 18:30 WBC 10.1 RBC 4.16 Hgb 12.6 Hct 37.0 MCV 88.8 MCH 30.3 MCHC 34.1 RDW 13.7 Plt Count 248 Neut % (Auto) 71.3 Lymph % (Auto) 19.3 L [place] % (Auto) 8.0 Eos % (Auto) 0.8 L Baso % (Auto) 0.6 Neut # (Auto) 7200 H Lymph # (Auto) 2000 [place] # (Auto) 800 Eos # (Auto) 100 Baso # (Auto) 100 PT 12.1 INR 1.1 APTT 32 Sodium 137 Potassium 3.8 Chloride 105 Carbon Dioxide 24 BUN 12 Creatinine 0.76 Estimated GFR > 60.0 BUN/Creatinine Ratio 15.8 Glucose 99 Calcium 9.5 Magnesium Total Bilirubin 0.6 AST 50 H ALT 38 H Alkaline Phosphatase 72 Total Protein 7.3 Albumin 4.1 Globulin 3.2 Albumin/Globulin Ratio 1.3 Lipase 33 SARS-CoV-2 (PCR) 01/15/21 01/16/21 01/16/21 22:40 05:24 05:24 WBC 7.7 RBC 4.07 Hgb 12.0 Hct 36.3 MCV 89.3 MCH 29.6 MCHC 33.2 RDW 13.8 Plt Count 241 Neut % (Auto) 58.5 Lymph % (Auto) 31.8 [place] % (Auto) 7.9 Eos % (Auto) 1.2 L Baso % (Auto) 0.6 Neut # (Auto) 4500 Lymph # (Auto) 2400 [place] # (Auto) 600 Eos # (Auto) 100 Baso # (Auto) 0 PT INR APTT Sodium 139 Potassium 3.9 Chloride 108 H Carbon Dioxide 23 BUN 11 Creatinine 0.75 Estimated GFR > 60.0 BUN/Creatinine Ratio 14.7 Glucose 91 Calcium 8.9 Magnesium 2.0 Total Bilirubin AST ALT Alkaline Phosphatase Total Protein Albumin Globulin Albumin/Globulin Ratio Lipase SARS-CoV-2 (PCR) Negative Assessment & Plan Assessment and plan (1) Diverticulitis of intestine with perforation: Qualifiers: Diverticulitis bleeding: without bleeding Diverticulitis site: large intestine Qualified Code(s): K57.20 - Diverticulitis of large intestine with perforation and abscess without bleeding Status: Acute Assessment & Plan narrative: This is a 71 yo woman who was admitted last night with her first episode of diverticulitis. Given her normal WBC and benign exam, she is a reasonable candidate for oral abx at home. Plan: Advance diet to fulls If tolerates diet, ok to DC home on oral abx for 10 days Follow up with [facility] or with her own primary care and in store representative COVID-19 COVID-19 status: Negative Result date/Date tested (Pos, Neg/Pending): 01/16/21 Time Spent With Patient Time with patient: 25 - 35 minutes
--- NOTE | 2021-01-16 13:59 | PM.DS.1 ---
History of Present Illness History of Present Illness Date Patient Seen: 01/16/21 Time Patient Seen: 13:59 Chief complaint: Lower Abdominal Narrative: Per LINETTE Vargas: Angelica Stewart is a 71-year-old female with hypothyroidism and a number of different medication and food allergies presented with lower abdominal pain and fever for 2 days. She thought that she had a fever of 100 yesterday and then checked again today and was 99. The patient states her normal temperature runs 97 so if it goes up to 98 she feels febrile. She had planned wait till Sunday to see her PCP. I noted her chart that she has seen her PCP for bladder issues. She denies difficulty breathing, chest pain, upper abdominal pain, dysuria, diarrhea or constipation, she does have chronic eczema and seasonal and other types of allergies. CT ordered in the ED indicated diverticulitis with small amount of bowel wall thickening ?A few adjacent punctate foci of suspected free air are suggestive of micro perforation. She is afebrile, blood pressure 135/72, heart rate 84, respiratory rate 16, oxygen saturation of 100% on room air, she weighs 92.7 kg with a BMI of 31. She has no white count the rest of her CBC and BMP are unremarkable, she does have mildly elevated liver enzymes, AST is 50 ALT is 38. Lipase was within normal limits and COVID-19 PCR was negative. Discharge Providers Provider Date of admission: 01/15/21 22:42 Discharge Date: 01/16/21 Primary care physician: Kade Fernandez ND Consults: 01/15/21 23:34 Consult to Pastoral Services Routine Comment: non demoninational chemical dependency nurse visit please 01/16/21 09:00 Consult to Physician Routine Comment: Consulting Provider: Amrita Child Reason for consultation: diverticulitis w/suspected microperf Has provider been notified: Yes Discharge provider: Chalo Cancino DO Summary Hospital Course Discharge Diagnosis: Diverticulitis with suspected microperforation, acute present on admission Hypothyroidism, chronic and stable, present on admission Hospital Course: This is a 71-year-old female with a past medical history of hypothyroidism who was admitted for acute diverticulitis with suspected microperforation. She was seen by surgery the following day and recommended for outpatient management. Patient was advanced to full liquid diet which she was tolerating on the day of discharge. She had improved symptoms with antibiotics including ciprofloxacin and Flagyl given the patient's allergies. She will continue these for an additional week as an outpatient. I recommend that she follow-up with her primary care doctor early next week for continued monitoring of her diverticulitis as an outpatient. 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 Exam Vital Signs (past 8 hours): - 01/16/21 07:00 01/16/21 08:05 Temperature 97.7 F Pulse Rate 63 Respiratory Rate 16 Blood Pressure 113/68 Pulse Oximetry 98 98 Oxygen Delivery Method Room Air Oxygen Flow Rate 0 Narrative Exam Narrative: Gen: Alert, oriented, well-developed 71 y.o. female, NAD HEENT: normocephalic, atraumatic, conjunctiva clear, sclera non-icteric, oral mucosa pink and moist Neck: supple, full ROM, no JVD, trachea is midline Resp: Lungs CTA, non-labored breathing CV: RRR, no murmur or rubs Abd: soft, mild tenderness LLQ, non-distended. Skin: no lesions or rashes, dry and intact Neuro: Alert and oriented X 4 w/no focal deficits. Speech clear and coherent. Extremities: moves all 4 extremities, is ambulatory, negative Kaelyn?s sign Psyche: very pleasant, normal mood and affect. Objective Labs Result Diagrams: 01/16/21 05:24 01/16/21 05:24 Labs: Laboratory Results - last 24 hr 01/15/21 01/15/21 01/15/21 18:30 18:30 18:30 WBC 10.1 RBC 4.16 Hgb 12.6 Hct 37.0 MCV 88.8 MCH 30.3 MCHC 34.1 RDW 13.7 Plt Count 248 Neut % (Auto) 71.3 Lymph % (Auto) 19.3 L [place] % (Auto) 8.0 Eos % (Auto) 0.8 L Baso % (Auto) 0.6 Neut # (Auto) 7200 H Lymph # (Auto) 2000 [place] # (Auto) 800 Eos # (Auto) 100 Baso # (Auto) 100 PT 12.1 INR 1.1 APTT 32 Sodium 137 Potassium 3.8 Chloride 105 Carbon Dioxide 24 BUN 12 Creatinine 0.76 Estimated GFR > 60.0 BUN/Creatinine Ratio 15.8 Glucose 99 Calcium 9.5 Magnesium Total Bilirubin 0.6 AST 50 H ALT 38 H Alkaline Phosphatase 72 Total Protein 7.3 Albumin 4.1 Globulin 3.2 Albumin/Globulin Ratio 1.3 Lipase 33 SARS-CoV-2 (PCR) 01/15/21 01/16/21 01/16/21 22:40 05:24 05:24 WBC 7.7 RBC 4.07 Hgb 12.0 Hct 36.3 MCV 89.3 MCH 29.6 MCHC 33.2 RDW 13.8 Plt Count 241 Neut % (Auto) 58.5 Lymph % (Auto) 31.8 [place] % (Auto) 7.9 Eos % (Auto) 1.2 L Baso % (Auto) 0.6 Neut # (Auto) 4500 Lymph # (Auto) 2400 [place] # (Auto) 600 Eos # (Auto) 100 Baso # (Auto) 0 PT INR APTT Sodium 139 Potassium 3.9 Chloride 108 H Carbon Dioxide 23 BUN 11 Creatinine 0.75 Estimated GFR > 60.0 BUN/Creatinine Ratio 14.7 Glucose 91 Calcium 8.9 Magnesium 2.0 Total Bilirubin AST ALT Alkaline Phosphatase Total Protein Albumin Globulin Albumin/Globulin Ratio Lipase SARS-CoV-2 (PCR) Negative PFSH Medical History Hypothyroidism Surgical History History of uterine suspension procedure Social History household members: none Smoking Status: Never smoker alcohol intake: current Discharge Plan Discharge Plan Patient Disposition: Home Provider Discharge Comment: You were admitted to the hospital with diverticulitis. 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 You should follow-up with her primary care doctor in a couple of days to reassess your pain while on antibiotic therapy. Please stay on Full liquid diet today and tomorrow, can resume regular diet if improving after that. Can take tylenol for pain at home. Discharge orders & Medications Prescriptions: New ciprofloxacin HCl 500 mg tablet 500 mg PO BID 7 Days Qty: 14 RF: 0 metronidazole 500 mg tablet 500 mg PO Q8H 7 Days Qty: 21 RF: 0 ondansetron 4 mg tablet,disintegrating 4 mg PO Q8H PRN (Reason: nausea and vomiting) 10 Days Qty: 30 RF: 0 Continued lysine 500 MG tablet 500 mg PO QDAY Qty: 0 RF: 0 lutein 20 MG tablet 20 mg PO QDAY Qty: 0 RF: 0 GLUCOSAMINE/CHONDROITIN SULF A 1 cap PO QDAY Qty: 0 RF: 0 liothyronine [Cytomel] 5 MCG tablet 5 mcg PO BID Qty: 0 RF: 0 levothyroxine 137 MCG tablet 137 mcg PO QDAY Qty: 90 RF: 0 estradiol cream 1 applic vaginal 2XW RF: 0 Follow up/Referrals: Kade Fernandez ARNP [Primary Care Provider] - Diet/Activity/Treatments Diet: Full Liquid Activity: As tolerated Visit Report/Discharge Packet Instructions: Full Liquid Diet Discharge Data Primary Care Provider: Kade Fernandez Attending Provider: Nusrat Schuster VTE Deep Vein Thrombosis/Pulmonary Embolism Present on Admission: No
--- NOTE | 2021-01-24 21:09 | PC.NURSE ---
Late Entry; Flagyl infusion initiated 01/16 at 0039, complete 0140. NS infusion initiated 0538, stopped by discharge order 1405.
== END 2021-01-16 14:45 | disposition home or self-care (01) ==
LOC: ED 22:42 → AC 22:42
PROVIDERS: Emergency Medicine; Admitting Provider Nurse Practitioner Family; Emergency Provider Emergency Medicine; PCP Registered Nurse; Referring Provider Emergency Medicine; Visit Provider Nurse Practitioner Family
DX: K57.20 Diverticulitis of large intestine with perforation and abscess without bleeding (principal); F41.9 Anxiety disorder, unspecified; E03.9 Hypothyroidism, unspecified; Z20.822 Contact with and (suspected) exposure to COVID-19
CPT/HCPCS: 36415; 74177; 80048; 80053; 81003; 83690; 83735; 85025; 85610; 85730; 87635; 93005; 96361; 96365; 96366; 96375; 96376; 99225; 99284; 99291; C9803; G0378; J1200; J1956; J2405; Q9967

== ENCOUNTER 2021-10-21 04:18 | Emergency (ER) | payer MEDICARE, OTHER, SELFPAY ==
[2021-01-15 23:21] VITALS: BMI 31.0
[2021-10-21] VITALS (28 sets, daily range): BP systolic 89–150; BP diastolic 53–90; PULSE 54–141; RESP 14–25; TEMP 36.4; O2SAT 95–100; BMI 29.7
--- NOTE | 2021-10-21 04:26 | DI.RAD.S_ITS ---
PROCEDURE: XR CHEST 1V INDICATIONS: Shortness of breath TECHNIQUE: One view of the chest was acquired. COMPARISON: [facility], , CHEST 1 VIEW, 04/26/2017, 0:31. FINDINGS: Surgical changes and devices: None. Lungs and pleura: Lungs are clear. No pleural effusions or pneumothorax. Mediastinum: Mediastinal contours appear normal. Heart size is normal. Bones and chest wall: No suspicious bony lesions. Overlying soft tissues appear unremarkable. IMPRESSION: No acute cardiopulmonary disease process. Dictated by: Monisha Strickland MD, PhD on 10/21/2021 at 8:57 Approved by: Monisha Strickland MD, PhD on 10/21/2021 at 8:59
--- NOTE | 2021-10-21 04:27 | ED.GENADULT ---
HPI - General Adult <Wilfred Ingram DO - Last Filed: 10/21/21 23:29> General Chief complaint: Arrhythmia/Palpitations Stated complaint: AFIB Time Seen by Provider: 10/21/21 04:23 Source: patient and EMS Mode of arrival: EMS Limitations: no limitations History of Present Illness HPI narrative: Patient is a 71-year-old female. Has a history of hypothyroid. Last evening started feeling poorly. Is having nausea and vomiting. Tested herself for COVID and stated that her COVID test at home was positive. She denies any chest pain. No shortness of breath. Was vomiting throughout the evening and several hours prior to arrival here in the emergency department started to have lightheadedness and palpitations. EMS was called. She was found to be in AFib with RVR. She reports no prior history of this. Was given 15 mg of Cardizem EN route by EMS which improved her heart rate somewhat however was still in AFib. Related Data Home Medications Medication Instructions Recorded Confirmed GLUCOSAMINE/CHONDROITIN SULF A 1 cap PO QDAY #0 04/15/16 01/15/21 levothyroxine 137 mcg tablet 137 mcg PO QDAY #90 04/15/16 01/15/21 liothyronine 5 mcg tablet (Cytomel) 5 mcg PO BID #0 tab 04/15/16 01/15/21 lutein 20 mg tablet 20 mg PO QDAY #0 04/15/16 01/15/21 lysine 500 mg tablet 500 mg PO QDAY #0 04/15/16 01/15/21 estradiol 1 applic VAGINAL 2XW 12/08/20 01/15/21 Previous Rx's Medication Instructions Recorded meclizine 25 mg tablet 25 mg PO TID PRN #10 tab 10/21/21 promethazine 25 mg rectal 25 mg [place] Q6H PRN #12 ea 10/21/21 suppository Allergies Allergy/AdvReac Type Severity Reaction Status Date / Time ampicillin [AMPICILLIN] Allergy Unknown Verified 10/21/21 04:22 hydrocodone [HYDROCODONE] Allergy Unknown Verified 10/21/21 04:22 morphine [MORPHINE] Allergy Unknown Verified 10/21/21 04:22 Penicillins [PENICILLINS] Allergy Unknown Verified 10/21/21 04:22 Sulfa (Sulfonamide Allergy Unknown Verified 10/21/21 04:22 Antibiotics) [SULFA (SULFONAMIDE ANTIBIOTICS)] Review of Systems <Wilfred Ingram DO - Last Filed: 10/21/21 23:29> Constitutional Constitutional: Reports chills, Denies fever(s), Denies headache(s) and Reports lethargy ENT Ears, Nose, Mouth, and Throat: Denies headache(s) Cardiovascular Cardiovascular: Denies chest pain, Reports rapid heart rate, Reports lightheadedness, Reports palpitations and Reports dyspnea Respiratory Respiratory: Denies cough and Reports dyspnea Gastrointestinal Gastrointestinal: Denies change in bowel habits, Reports nausea and Reports vomiting Musculoskeletal Musculoskeletal: Reports system reviewed and no additional complaints, except as documented Integumentary/Breasts Skin/Breast: Reports system reviewed and no additional complaints, except as documented Neurologic Neurologic: Denies headache(s) Endocrine Endocrine: Reports palpitations Hematologic/Lymphatic On Anticoagulants: No Patient History <Wilfred Ingram DO - Last Filed: 10/21/21 23:29> Medical History Hypothyroidism Surgical History History of uterine suspension procedure Social History household members: none Smoking Status: Never smoker alcohol intake: current Smoking Status: Never smoker alcohol intake frequency: a few times a month Substance Use Type: does not use Exam <Wilfred Ingram DO - Last Filed: 10/21/21 23:29> Initial Vital Signs Initial Vital Signs: Vital Signs Temperature 97.6 F 10/21/21 04:26 Pulse Rate 76 10/21/21 04:26 Respiratory Rate 22 10/21/21 04:26 Blood Pressure 150/90 H 10/21/21 04:26 Pulse Oximetry 97 10/21/21 04:26 Const General: cooperative, comfortable and well developed [facility] Head: normal to inspection and normocephalic Resp Effort & Inspection: normal respiratory effort Auscultation: clear to auscultation bilaterally Cardio Rate: tachycardic Rhythm: abnormal rhythm GI Inspection: normal to inspection Skin General: no rashes or lesions noted Neuro General: patient alert, patient awake and moves all extremities Extrem General: normal to inspection and capillary refill normal Psych Appearance: grossly normal and well kempt <Minna Alvarado DO - Last Filed: 10/21/21 18:35> Initial Vital Signs Initial Vital Signs: Vital Signs Temperature 97.6 F 10/21/21 04:26 Pulse Rate 76 10/21/21 04:26 Respiratory Rate 22 10/21/21 04:26 Blood Pressure 150/90 H 10/21/21 04:26 Pulse Oximetry 97 10/21/21 04:26 Scores <Wilfred Ingram, DO - Last Filed: 10/21/21 23:29> NIH Stroke Scale Total NIH Stroke scale score: 0 <Minna Alvarado, DO - Last Filed: 10/21/21 18:35> NIH Stroke Scale Level of Conciousness: Alert, keenly responsive Ask month/age: Answers both questions correctly. Open/close eyes, close hand: Performs both tasks correctly Best gaze horizontal: Normal Visual mcpherson: No visual loss Facial palsy: Normal symetrical movement Left arm drift: No drift for full 10 sec Right arm drift: No drift for full 10 sec Left leg drift: No drift for full 5 sec Right leg drift: No drift for full 5 sec Limb ataxia: Absent Sensory on face/arms/legs: Normal, no sensory loss Best language: No aphasia, normal Dysarthria: Normal Extinction or inattention: No abnormality Total NIH Stroke scale score: 0 Course <Wilfred Ingram, DO - Last Filed: 10/21/21 23:29> Orders Ordered: Discontinued Medications Fentanyl (Fentanyl 100 Mcg/2 Ml Inj) 25 mcg IV NOW ONE Stop: 10/21/21 05:09 Last Admin: 10/21/21 08:31 Dose: Not Given Documented by: BRENDON Sodium Chloride (Normal Saline 0.9%) 1,000 mls @ 125 mls/hr IV CONT HELEN Last Infusion: 10/21/21 11:50 Dose: 125 mls/hr Documented by: Admin: 10/21/21 04:45 Dose: 125 mls/hr Documented by: BRENDON Diltiazem HCl 125 mg/ Dextrose 125 mls @ 5 mls/hr IV TITRATE HELEN; Protocol Last Titration: 10/21/21 11:50 Dose: 0 mg/hr, 0 mls/hr Documented by: Titration: 10/21/21 07:40 Dose: 0 mg/hr, 0 mls/hr Documented by: Admin: 10/21/21 06:04 Dose: 5 mg/hr, 5 mls/hr Documented by: MELISSA Meclizine HCl (Meclizine Hcl 12.5 Mg Tablet) 25 mg PO NOW ONE Stop: 10/21/21 08:36 Last Admin: 10/21/21 09:58 Dose: 25 mg Documented by: BODY Metoprolol Tartrate (Metoprolol Tartrate 5 Mg/5 Ml Inj) 5 mg IV NOW ONE Stop: 10/21/21 05:31 Last Admin: 10/21/21 08:33 Dose: Not Given Documented by: BRENDON Propofol (Propofol 200 Mg/20 Ml Vial) 100 mg IV NOW ONE Stop: 10/21/21 05:09 Last Admin: 10/21/21 08:31 Dose: Not Given Documented by: BRENDON Vital Signs Vital signs: Vital Signs - 8 hr 10/21/21 10:30 10/21/21 10:40 10/21/21 11:00 Pulse Rate 68 54 L 57 L Respiratory Rate 17 19 14 Blood Pressure 107/57 L 119/55 L Pulse Oximetry 99 96 99 10/21/21 11:20 Pulse Rate 56 L Respiratory Rate 17 Blood Pressure 105/55 L Pulse Oximetry 98 <Minna Alvarado, DO - Last Filed: 10/21/21 18:35> Orders Ordered: Discontinued Medications Fentanyl (Fentanyl 100 Mcg/2 Ml Inj) 25 mcg IV NOW ONE Stop: 10/21/21 05:09 Last Admin: 10/21/21 08:31 Dose: Not Given Documented by: BRENDON Sodium Chloride (Normal Saline 0.9%) 1,000 mls @ 125 mls/hr IV CONT HELEN Last Infusion: 10/21/21 11:50 Dose: 125 mls/hr Documented by: Admin: 10/21/21 04:45 Dose: 125 mls/hr Documented by: BRENDON Diltiazem HCl 125 mg/ Dextrose 125 mls @ 5 mls/hr IV TITRATE HELEN; Protocol Last Titration: 10/21/21 11:50 Dose: 0 mg/hr, 0 mls/hr Documented by: Titration: 10/21/21 07:40 Dose: 0 mg/hr, 0 mls/hr Documented by: Admin: 10/21/21 06:04 Dose: 5 mg/hr, 5 mls/hr Documented by: MELISSA Meclizine HCl (Meclizine Hcl 12.5 Mg Tablet) 25 mg PO NOW ONE Stop: 10/21/21 08:36 Last Admin: 10/21/21 09:58 Dose: 25 mg Documented by: BOYD Metoprolol Tartrate (Metoprolol Tartrate 5 Mg/5 Ml Inj) 5 mg IV NOW ONE Stop: 10/21/21 05:31 Last Admin: 10/21/21 08:33 Dose: Not Given Documented by: BRENDON Propofol (Propofol 200 Mg/20 Ml Vial) 100 mg IV NOW ONE Stop: 10/21/21 05:09 Last Admin: 10/21/21 08:31 Dose: Not Given Documented by: BRENDON Vital Signs Vital signs: Vital Signs - 8 hr 10/21/21 10:30 10/21/21 10:40 10/21/21 11:00 Pulse Rate 68 54 L 57 L Respiratory Rate 17 19 14 Blood Pressure 107/57 L 119/55 L Pulse Oximetry 99 96 99 10/21/21 11:20 Pulse Rate 56 L Respiratory Rate 17 Blood Pressure 105/55 L Pulse Oximetry 98 Medical Decision Making <Wilfred Ingram DO - Last Filed: 10/21/21 23:29> Lab Data Lab results reviewed: Yes I reviewed the patient's lab results. Result diagrams: 10/21/21 04:20 10/21/21 04:20 Labs: Lab Results 10/21/21 10/21/21 10/21/21 Range/Units 04:20 04:20 04:20 WBC 6.9 (4.5-11.0) X10^3/uL RBC 4.54 (4.0-5.2) X10^6/uL Hgb 13.4 (12.0-16.0) g/dL Hct 39.5 (36-46) % MCV 87.0 (80-100) fL MCH 29.6 (26-34) PG MCHC 34.0 (30-36) % RDW 13.7 (11.6-14.8) % Plt Count 258 (150-400) X10^3/uL Neut % (Auto) 64.9 (50-75) % Lymph % (Auto) 27.3 (25-40) % [place] % (Auto) 5.1 (3-14) % Eos % (Auto) 0.7 L (2-4) % Baso % (Auto) 2.0 (0-2) % Neut # (Auto) 4500 (2297-0940) /uL Lymph # (Auto) 1900 (4610-6448) /uL [place] # (Auto) 400 (0-900) /uL Eos # (Auto) 100 (0-450) /uL Baso # (Auto) 100 (0-100) /uL PT 11.3 (10.1-12.7) SECONDS INR 1.0 (0.9-1.3) APTT 35 (26.4-36.2) SECONDS Sodium 135 L (137-145) mmol/L Potassium 3.8 (3.4-5.1) mmol/L Chloride 103 (98-107) mmol/L Carbon Dioxide 24 (22-32) mmol/L BUN 17 (7-17) mg/dL Creatinine 0.72 (0.52-1.04) mg/dL Estimated GFR > 60.0 (>60) mL/min BUN/Creatinine Ratio 23.6 H (6-22) Glucose 140 H (80-110) mg/dL Calcium 10.0 (8.4-10.2) mg/dL Magnesium (1.6-2.3) mg/dL Total Bilirubin 0.6 (0.2-1.3) mg/dL AST 33 (14-36) IU/L ALT 27 (<35) IU/L Alkaline Phosphatase 67 (38-126) U/L Total Creatine Kinase (30-135) U/L CK-MB (CK-2) (<2.37) ng/mL CK-MB (CK-2) Rel Index (1.5-5.0) % Troponin I (0.01-0.034) ng/mL Total Protein 8.1 (6.3-8.2) g/dL Albumin 4.8 (3.5-5.0) g/dL Globulin 3.3 (1.7-4.1) g/dL Albumin/Globulin Ratio 1.5 (1.0-2.8) TSH (0.47-4.68) uIU/mL SARS-CoV-2 (PCR) (Negative) 10/21/21 10/21/2122 Range/Units 04:20 04:20 04:30 WBC (4.5-11.0) X10^3/uL RBC (4.0-5.2) X10^6/uL Hgb (12.0-16.0) g/dL Hct (36-46) % MCV (80-100) fL MCH (26-34) PG MCHC (30-36) % RDW (11.6-14.8) % Plt Count (150-400) X10^3/uL Neut % (Auto) (50-75) % Lymph % (Auto) (25-40) % [place] % (Auto) (3-14) % Eos % (Auto) (2-4) % Baso % (Auto) (0-2) % Neut # (Auto) (8569-4063) /uL Lymph # (Auto) (2541-3181) /uL [place] # (Auto) (0-900) /uL Eos # (Auto) (0-450) /uL Baso # (Auto) (0-100) /uL PT (10.1-12.7) SECONDS INR (0.9-1.3) APTT (26.4-36.2) SECONDS Sodium (137-145) mmol/L Potassium (3.4-5.1) mmol/L Chloride (98-107) mmol/L Carbon Dioxide (22-32) mmol/L BUN (7-17) mg/dL Creatinine (0.52-1.04) mg/dL Estimated GFR (>60) mL/min BUN/Creatinine Ratio (6-22) Glucose (80-110) mg/dL Calcium (8.4-10.2) mg/dL Magnesium 2.1 (1.6-2.3) mg/dL Total Bilirubin (0.2-1.3) mg/dL AST (14-36) IU/L ALT (<35) IU/L Alkaline Phosphatase (38-126) U/L Total Creatine Kinase 138 H (30-135) U/L CK-MB (CK-2) 2.57 H (<2.37) ng/mL CK-MB (CK-2) Rel Index 1.9 (1.5-5.0) % Troponin I < 0.012 (0.01-0.034) ng/mL Total Protein (6.3-8.2) g/dL Albumin (3.5-5.0) g/dL Globulin (1.7-4.1) g/dL Albumin/Globulin Ratio (1.0-2.8) TSH 6.14 H (0.47-4.68) uIU/mL SARS-CoV-2 (PCR) Negative (Negative) Imaging Data Chest x-ray: Radiologist's Impression: No active cardiopulmonary disease demonstrated ECG Data Attestation: I personally reviewed and interpreted this ECG as follows: Interpretation: Atrial fibrillation Ventricular rate 81 Normal axis Normal QRS Nonspecific ST T wave changes MDM Narrative Medical decision making narrative: Patient arrived a-fib with RVR. Symptoms started within the past 24 hours. Appears that it had an onset with vomiting during this time. She has never had a history of atrial fibrillation. She is not hypotensive. Patient was given diltiazem by EMS prior to arrival which did improve her rate somewhat. Patient is a candidate for cardioversion. Had a discussion with her regarding rate control versus rhythm control and cardioversion verses admission to the hospital with rate control medication. Patient expressed understanding of these options and opted for cardioversion. Consent was signed. Somewhat delay in the ability to perform the cardioversion secondary to respiratory therapy being unavailable to be present due to other patient care responsibilities in the ICU. Because there was going to be a delay patient was started on Cardizem. Care turned over to Dr. Alvarado to proceed with cardioversion and disposition. Patient signed out to me by Dr. Ingram of seen and evaluated her myself. She states yesterday she felt a little dizzy when she woke up she was able to function and do things however the dizziness got worse she started feeling nauseous and having palpitations. She had a new onset of AFib with RVR she was given diltiazem, metoprolol is back ordered. Upon my initial evaluation she continued to have palpitations. Plan was to cardiovert her. However patient spontaneously cardioverted herself and in normal sinus rhythm. Upon re-evaluation she continues to feel extremely nauseous although she has not vomited in the ED and feels that she is dizzy every time she moves. He has never had vertigo in the past. She has no numbness tingling or weakness. Her NIH stroke scale is 0. However she really feels unable to move. CT angio was negative for stroke she is feeling significantly better after meclizine. She is able to stand and ambulate in the ED. She has been out of AFib for a while still feels little bit nauseous dizziness is overall improved. <Minna Jenny, DO - Last Filed: 10/21/21 18:35> Lab Data Labs: Lab Results 10/21/21 10/21/21 10/21/21 Range/Units 04:20 04:20 04:20 WBC 6.9 (4.5-11.0) X10^3/uL RBC 4.54 (4.0-5.2) X10^6/uL Hgb 13.4 (12.0-16.0) g/dL Hct 39.5 (36-46) % MCV 87.0 (80-100) fL MCH 29.6 (26-34) PG MCHC 34.0 (30-36) % RDW 13.7 (11.6-14.8) % Plt Count 258 (150-400) X10^3/uL Neut % (Auto) 64.9 (50-75) % Lymph % (Auto) 27.3 (25-40) % [place] % (Auto) 5.1 (3-14) % Eos % (Auto) 0.7 L (2-4) % Baso % (Auto) 2.0 (0-2) % Neut # (Auto) 4500 (1616-5200) /uL Lymph # (Auto) 1900 (5258-7132) /uL [place] # (Auto) 400 (0-900) /uL Eos # (Auto) 100 (0-450) /uL Baso # (Auto) 100 (0-100) /uL PT 11.3 (10.1-12.7) SECONDS INR 1.0 (0.9-1.3) APTT 35 (26.4-36.2) SECONDS Sodium 135 L (137-145) mmol/L Potassium 3.8 (3.4-5.1) mmol/L Chloride 103 (98-107) mmol/L Carbon Dioxide 24 (22-32) mmol/L BUN 17 (7-17) mg/dL Creatinine 0.72 (0.52-1.04) mg/dL Estimated GFR > 60.0 (>60) mL/min BUN/Creatinine Ratio 23.6 H (6-22) Glucose 140 H (80-110) mg/dL Calcium 10.0 (8.4-10.2) mg/dL Magnesium (1.6-2.3) mg/dL Total Bilirubin 0.6 (0.2-1.3) mg/dL AST 33 (14-36) IU/L ALT 27 (<35) IU/L Alkaline Phosphatase 67 (38-126) U/L Total Creatine Kinase (30-135) U/L CK-MB (CK-2) (<2.37) ng/mL CK-MB (CK-2) Rel Index (1.5-5.0) % Troponin I (0.01-0.034) ng/mL Total Protein 8.1 (6.3-8.2) g/dL Albumin 4.8 (3.5-5.0) g/dL Globulin 3.3 (1.7-4.1) g/dL Albumin/Globulin Ratio 1.5 (1.0-2.8) TSH (0.47-4.68) uIU/mL SARS-CoV-2 (PCR) (Negative) 10/21/21 10/21/21 10/21/21 Range/Units 04:20 04:20 04:30 WBC (4.5-11.0) X10^3/uL RBC (4.0-5.2) X10^6/uL Hgb (12.0-16.0) g/dL Hct (36-46) % MCV (80-100) fL MCH (26-34) PG MCHC (30-36) % RDW (11.6-14.8) % Plt Count (150-400) X10^3/uL Neut % (Auto) (50-75) % Lymph % (Auto) (25-40) % [place] % (Auto) (3-14) % Eos % (Auto) (2-4) % Baso % (Auto) (0-2) % Neut # (Auto) (9678-7708) /uL Lymph # (Auto) (5405-4506) /uL [place] # (Auto) (0-900) /uL Eos # (Auto) (0-450) /uL Baso # (Auto) (0-100) /uL PT (10.1-12.7) SECONDS INR (0.9-1.3) APTT (26.4-36.2) SECONDS Sodium (137-145) mmol/L Potassium (3.4-5.1) mmol/L Chloride (98-107) mmol/L Carbon Dioxide (22-32) mmol/L BUN (7-17) mg/dL Creatinine (0.52-1.04) mg/dL Estimated GFR (>60) mL/min BUN/Creatinine Ratio (6-22) Glucose (80-110) mg/dL Calcium (8.4-10.2) mg/dL Magnesium 2.1 (1.6-2.3) mg/dL Total Bilirubin (0.2-1.3) mg/dL AST (14-36) IU/L ALT (<35) IU/L Alkaline Phosphatase (38-126) U/L Total Creatine Kinase 138 H (30-135) U/L CK-MB (CK-2) 2.57 H (<2.37) ng/mL CK-MB (CK-2) Rel Index 1.9 (1.5-5.0) % Troponin I < 0.012 (0.01-0.034) ng/mL Total Protein (6.3-8.2) g/dL Albumin (3.5-5.0) g/dL Globulin (1.7-4.1) g/dL Albumin/Globulin Ratio (1.0-2.8) TSH 6.14 H (0.47-4.68) uIU/mL SARS-CoV-2 (PCR) Negative (Negative) Imaging Data CTA - brain/neck: Radiologist's Impression: PROCEDURE:? CT ANGIO HEAD AND NECK ? INDICATIONS:? can't stand up dizzy ? TECHNIQUE:? Pre-contrast 4.5 mm thick sections acquired from the foramen magnum to the vertex.? After the administration of intravenous contrast, 1 mm thick sections acquired from the aortic arch through the [place] of [place].? Post-contrast 4.5 mm thick sections then re-acquired from the foramen magnum to the vertex.? 3-dimensional rimzbys-qsmnybisp-fwmyoamwbr (MIP) and/or volume rendering reformats were acquired of the central intracranial vasculature and neck separately. ? COMPARISON:? None. ? FINDINGS:? Image quality:? Excellent.? ? BRAIN:? CSF spaces:? Ventricles are normal in size and shape.? Basal cisterns are patent.? No extra-axial fluid collections.? ? Brain:? No midline shift.? No intracranial bleeds or masses.? Gutiérrez-white matter interface appears intact.? ? Skull and face:? Calvarium and facial bones appear intact, without suspicious lesions.? Orbits appear normal.? ? Sinuses:? Sinuses and mastoids are clear.? ? HEAD CT ANGIOGRAPHY:? Anterior circulation:? Intracranial internal carotid arteries are normal in size and flow.? The flow within the paired anterior cerebral arteries is normal and symmetric.? The flow within the middle cerebral arteries is normal and symmetric.? The anterior communicating artery is seen.? No aneurysms are seen.? ? Posterior circulation:? Visualized portions of the vertebral arteries demonstrate normal caliber, and join to form a normal appearing basilar artery.? Flow within the posterior cerebral arteries is normal and symmetric.? No aneurysms are seen.? ? Dural sinuses demonstrate normal postcontrast enhancement.? ? NECK CT ANGIOGRAPHY:? Carotid system:? The great vessels demonstrate a conventional anatomy as they arise from the aortic arch.? The origins of the common carotid arteries appear patent.? The common carotid arteries demonstrate normal caliber and courses.? The bifurcation regions are both widely patent.? The internal carotid arteries demonstrate normal calibers and courses.? ? Posterior circulation:? The origins of the vertebral arteries both appear widely patent.? The more superior extracranial portions of both vertebral arteries also demonstrate normal courses and calibers.? They join to form a normal appearing basilar artery.? ? Soft tissues:? Visualized neck soft tissues demonstrate no suspicious abnormalities.? ? Bones:? No suspicious bony lesions. Spine degenerative disc disease and facet arthropathy. Visualized cervical spine appears normally aligned.? ? ? IMPRESSION:? ? 1. No acute intracranial disease process. ? 2. No large vessel occlusion, vascular stenosis, vascular dissection or aneurysm.? ? Any quantitative measurements of stenosis were performed using NASCET criteria.? ? ? Dictated by: Monisha Strickland MD, PhD on 10/21/2021 at 10:42 ? ? MDM Narrative Medical decision making narrative: Patient signed out to me by Dr. Ingram of seen and evaluated her myself. She states yesterday she felt a little dizzy when she woke up she was able to function and do things however the dizziness got worse she started feeling nauseous and having palpitations. She had a new onset of AFib with RVR she was given diltiazem, metoprolol is back ordered. Upon my initial evaluation she continued to have palpitations. Plan was to cardiovert her. However patient spontaneously cardioverted herself and in normal sinus rhythm. Upon re-evaluation she continues to feel extremely nauseous although she has not vomited in the ED and feels that she is dizzy every time she moves. He has never had vertigo in the past. She has no numbness tingling or weakness. Her NIH stroke scale is 0. However she really feels unable to move. CT angio was negative for stroke she is feeling significantly better after meclizine. She is able to stand and ambulate in the ED. She has been out of AFib for a while still feels little bit nauseous dizziness is overall improved. Discharge Plan Departure Patient Disposition: Home Clinical Impression: Atrial fibrillation, Vertigo Instructions: Vertigo, DI for Atrial Fibrillation Activity Restrictions/Additional Instructions: *You have been diagnosed with atrial fibrillation and vertigo *What to do: Your heart was in an abnormal arrhythmia which may have been contributing to your dizziness. He were no longer in it. However I do still recommend that he follow up with your regular doctor and possibly Cardiology in regards to this. *Continue to take medications as directed--> SENT TO [facility] Aspirin 81 mg daily Phenergan 25 mg suppository every 6 hours if needed for nausea or vomiting Meclizine 25 mg every 8 hours if needed for dizziness *Follow up with your primary care provider in 2-3 days or call [phone] *Return to ER if you should have increasing dizziness palpitations vomiting chest pain or any new, worsening or concerning symptoms Prescriptions: New meclizine 25 mg tablet 25 mg PO TID PRN (Reason: dizziness) Qty: 10 0RF promethazine 25 mg suppository 25 mg [place] Q6H PRN (Reason: nausea and vomiting) Qty: 12 0RF No Action lysine 500 MG tablet 500 mg PO QDAY Qty: 0 0RF lutein 20 MG tablet 20 mg PO QDAY Qty: 0 0RF GLUCOSAMINE/CHONDROITIN SULF A 1 cap PO QDAY Qty: 0 0RF liothyronine [Cytomel] 5 MCG tablet 5 mcg PO BID Qty: 0 0RF levothyroxine 137 MCG tablet 137 mcg PO QDAY Qty: 90 0RF estradiol cream 1 applic vaginal 2XW 0RF Rx Instructions: twice weekly compounded cream Referrals: Kade Fernandez ARNP [Primary Care Provider] -
[2021-10-21 04:43] LABS: Add Manual Diff / Slide Review NO; Basophils Absolute Auto 100 /uL (0-100); Eosinophils Absolute Auto 100 /uL (0-450); Eosinophils Percent Auto 0.7 % (2-4); Hematocrit 39.5 % (36-46); Hemoglobin 13.4 g/dL (12.0-16.0); Lymphocytes Absolute Auto 1900 /uL (1100-4500); Lymphocytes Percent Auto 27.3 % (25-40); Mean Corpuscular Hemoglobin 29.6 PG (26-34); Monocytes Absolute Auto 400 /uL (0-900); Monocytes Percent Auto 5.1 % (3-14); Neutrophils Absolute Auto 4500 /uL (1500-7000); Neutrophils Percent Auto 64.9 % (50-75); Platelet Count 258 X10^3/uL (150-400); Red Blood Cell Count 4.54 X10^6/uL (4.0-5.2); Red Cell Distribution Width 13.7 % (11.6-14.8); White Blood Cell Count 6.9 X10^3/uL (4.5-11.0)
[2021-10-21] MEDS: SODIUM CHLORIDE 0.9% 1,000 ML 125 ML IV (04:45)
[2021-10-21 04:49] LABS: Alanine Aminotransferase 27 IU/L (<35); Albumin 4.8 g/dL (3.5-5.0); Albumin Globulin Ratio 1.5 (1.0-2.8); Alkaline Phosphatase 67 U/L (38-126); Aspartate Aminotransferase 33 IU/L (14-36); BUN Creatinine Ratio 23.6 (6-22); Bilirubin Total 0.6 mg/dL (0.2-1.3); Blood Urea Nitrogen 17 mg/dL (7-17); Carbon Dioxide 24 mmol/L (22-32); Chloride 103 mmol/L (98-107); Estimated Glomerular Filt Rate > 60.0 mL/min (>60); Globulin 3.3 g/dL (1.7-4.1); Glucose 140 mg/dL (80-110); HEMOLYSIS < 15 (0-50); Potassium 3.8 mmol/L (3.4-5.1); Sodium 135 mmol/L (137-145); Total Protein 8.1 g/dL (6.3-8.2)
[2021-10-21 04:50] LABS: Creatine Kinase 138 U/L (30-135); Magnesium 2.1 mg/dL (1.6-2.3)
[2021-10-21 04:55] LABS: Prothrombin Time 11.3 SECONDS (10.1-12.7)
[2021-10-21 04:55] LABS: COVID19 -Nasal RAPID Negative (Negative)
[2021-10-21 04:57] LABS: PTT Partial Thromboplastin Tim 35 SECONDS (26.4-36.2)
[2021-10-21 05:01] LABS: Troponin I < 0.012 ng/mL (0.01-0.034)
[2021-10-21 05:05] LABS: CKMB % Relative Index 1.9 % (1.5-5.0); Creatine Kinase MB 2.57 ng/mL (<2.37)
[2021-10-21 05:51] LABS: Thyroid Stimulating Hormone 6.14 uIU/mL (0.47-4.68)
[2021-10-21] MEDS: dilTIAZem 125 MG in DEXTROSE 5 % IN WATER 100 ML IV (06:04)
--- NOTE | 2021-10-21 08:34 | PC.NURSE ---
Pt converted to SR at 0718. Dr Alvarado notified.
--- NOTE | 2021-10-21 08:35 | DI.CT.S_ITS ---
PROCEDURE: CT ANGIO HEAD AND NECK INDICATIONS: can't stand up dizzy TECHNIQUE: Pre-contrast 4.5 mm thick sections acquired from the foramen magnum to the vertex. After the administration of intravenous contrast, 1 mm thick sections acquired from the aortic arch through the [place]. Post-contrast 4.5 mm thick sections then re-acquired from the foramen magnum to the vertex. 3-dimensional ddwgxmu-nezuqxulx-blntqamube (MIP) and/or volume rendering reformats were acquired of the central intracranial vasculature and neck separately. COMPARISON: None. FINDINGS: Image quality: Excellent. BRAIN: CSF spaces: Ventricles are normal in size and shape. Basal cisterns are patent. No extra-axial fluid collections. Brain: No midline shift. No intracranial bleeds or masses. Gutiérrez-white matter interface appears intact. Skull and face: Calvarium and facial bones appear intact, without suspicious lesions. Orbits appear normal. Sinuses: Sinuses and mastoids are clear. HEAD CT ANGIOGRAPHY: Anterior circulation: Intracranial internal carotid arteries are normal in size and flow. The flow within the paired anterior cerebral arteries is normal and symmetric. The flow within the middle cerebral arteries is normal and symmetric. The anterior communicating artery is seen. No aneurysms are seen. Posterior circulation: Visualized portions of the vertebral arteries demonstrate normal caliber, and join to form a normal appearing basilar artery. Flow within the posterior cerebral arteries is normal and symmetric. No aneurysms are seen. Dural sinuses demonstrate normal postcontrast enhancement. NECK CT ANGIOGRAPHY: Carotid system: The great vessels demonstrate a conventional anatomy as they arise from the aortic arch. The origins of the common carotid arteries appear patent. The common carotid arteries demonstrate normal caliber and courses. The bifurcation regions are both widely patent. The internal carotid arteries demonstrate normal calibers and courses. Posterior circulation: The origins of the vertebral arteries both appear widely patent. The more superior extracranial portions of both vertebral arteries also demonstrate normal courses and calibers. They join to form a normal appearing basilar artery. Soft tissues: Visualized neck soft tissues demonstrate no suspicious abnormalities. Bones: No suspicious bony lesions. Spine degenerative disc disease and facet arthropathy. Visualized cervical spine appears normally aligned. IMPRESSION: 1. No acute intracranial disease process. 2. No large vessel occlusion, vascular stenosis, vascular dissection or aneurysm. Any quantitative measurements of stenosis were performed using NASCET criteria. Dictated by: Monisha Strickland MD, PhD on 10/21/2021 at 10:42 Approved by: Monisha Strickland MD, PhD on 10/21/2021 at 10:48
[2021-10-21] MEDS: MECLIZINE HCL 12.5 MG TABLET 25 MG PO (09:58)
--- NOTE | 2021-10-21 11:25 | PC.NURSE ---
gate a little unsteady but able to correct self and does not require holding onto wall or person for assist independent to stand and walk.
== END 2021-10-21 11:55 | disposition home or self-care (01) ==
PROVIDERS: Emergency Medicine; Emergency Provider Emergency Medicine; PCP Registered Nurse
DX: I48.91 Unspecified atrial fibrillation (principal); R42 Dizziness and giddiness; R11.2 Nausea with vomiting, unspecified; Z20.822 Contact with and (suspected) exposure to COVID-19
CPT/HCPCS: 36415; 70496; 70498; 71045; 80053; 82550; 82553; 83735; 84443; 84484; 85025; 85610; 85730; 87635; 93005; 93010; 96361; 96365; 96366; 99284; C9803; Q9967

== ENCOUNTER 2021-11-19 21:04 | Emergency (ER) | payer MEDICARE, OTHER, SELFPAY ==
[2021-01-15 23:21] VITALS: BMI 31.0
[2021-11-19 21:30] VITALS: BP 131/78; PULSE 90; RESP 16; TEMP 36.8; O2SAT 96; BMI 29.7
--- NOTE | 2021-11-19 22:03 | ED.GENADULT ---
HPI - General Adult General Chief complaint: Abdominal Pain Stated complaint: abd pain x3days/fever today Time Seen by Provider: 11/19/21 21:44 Source: patient Mode of arrival: Ambulatory History of Present Illness HPI narrative: 71-year-old woman with a history of hypothyroidism presents with 3 days of lower abdominal pain. Problem started back in January of 2021 with semi formed stool, abdominal pain was admitted overnight for sigmoid diverticulitis with suggestion of micro perforation, given IV antibiotics and then discharged home with additional antibiotics and seemed to do well. She was seen here again on month ago with paroxysmal atrial fibrillation that spontaneously converted. She has been doing well until 3 days ago when she began having the lower abdominal pain and over the last 12 hours has developed a fever. Comes in for further evaluation. She complains of no cough, chills she has been slightly nauseated but has not vomited. Has lower abdominal pain no lower extremity edema no headaches. She is having soft but formed stool, no kidney pain, tenderness or dysuria. She does note that she had an episode of palpitations with rapid heart rate as documented on her Fitbit yesterday for couple of hours that resolved spontaneously. This has not happened since her episode of atrial fibrillation documented in the emergency department a month ago. She also notes that she has been exceptionally fatigued over the last weeks to months with some changes to her thyroid medications not improving that. She notes she takes aigr-dps-otoqotv sleep medication and reports that her told her that she did snore when she was very tired. Related Data Home Medications Medication Instructions Recorded Confirmed GLUCOSAMINE/CHONDROITIN SULF A 1 cap PO QDAY #0 04/15/16 01/15/21 levothyroxine 137 mcg tablet 137 mcg PO QDAY #90 04/15/16 01/15/21 liothyronine 5 mcg tablet (Cytomel) 5 mcg PO BID #0 tab 04/15/16 01/15/21 lutein 20 mg tablet 20 mg PO QDAY #0 04/15/16 01/15/21 lysine 500 mg tablet 500 mg PO QDAY #0 04/15/16 01/15/21 estradiol 1 applic VAGINAL 2XW 12/08/20 01/15/21 Previous Rx's Medication Instructions Recorded meclizine 25 mg tablet 25 mg PO TID PRN #10 tab 10/21/21 promethazine 25 mg rectal 25 mg MO Q6H PRN #12 ea 10/21/21 suppository levofloxacin 750 mg tablet 750 mg PO DAILY #7 tab 11/19/21 ondansetron 4 mg disintegrating 4 mg PO Q8H PRN #10 tab 11/20/21 tablet Allergies Allergy/AdvReac Type Severity Reaction Status Date / Time ampicillin [AMPICILLIN] Allergy Unknown Verified 10/21/21 04:22 hydrocodone [HYDROCODONE] Allergy Unknown Verified 10/21/21 04:22 morphine [MORPHINE] Allergy Unknown Verified 10/21/21 04:22 Penicillins [PENICILLINS] Allergy Unknown Verified 10/21/21 04:22 Sulfa (Sulfonamide Allergy Unknown Verified 10/21/21 04:22 Antibiotics) [SULFA (SULFONAMIDE ANTIBIOTICS)] Review of Systems Review of Systems Narrative: Remainder of complete review of systems is otherwise unremarkable except for that included in the HPI. Patient History Medical History (Updated 11/19/21 @ 23:58 by Aleida Pineda MD) Diverticulitis Hypothyroidism Surgical History History of uterine suspension procedure Social History household members: none Smoking Status: Never smoker alcohol intake: current Smoking Status: Never smoker alcohol intake frequency: a few times a month Substance Use Type: does not use Exam Initial Vital Signs Initial Vital Signs: Vital Signs Temperature 98.2 F 11/19/21 21:30 Pulse Rate 90 11/19/21 21:30 Respiratory Rate 16 11/19/21 21:30 Blood Pressure 131/78 11/19/21 21:30 Pulse Oximetry 96 11/19/21 21:30 General: Healthy appearing, in no acute distress. Able to give a complete and coherent history. Well-nourished well-developed HEENT: Moist mucous membranes, normal sclera with reactive pupils, Neck: No JVD, supple Respiratory: Lungs are clear to auscultation, no wheezing no rales no rhonchi. Full and symmetrical air movement Cardiac: Regular rate and rhythm no murmurs no bruits Abdomen: Soft, mild lower abdominal tenderness without rebound or guarding, good bowel tones, no flank pain Skin: Warm and dry, no rashes Neurologic: Grossly neurologically intact with no obvious asymmetries or abnormalities Extremities: No trauma, well perfused Psych: Cooperative, appropriate insight and affect Course Orders Ordered: ED Orders 11/19/21 21:38 EKG-12 Lead Stat 11/19/21 22:00 Complete Blood Count AUTO DIFF Stat Comprehensive Metabolic Panel Stat Lipase Stat 11/19/21 22:13 CT abdomen pelvis w con Stat Discontinued Medications Levofloxacin (Levofloxacin 250 Mg Tablet) 750 mg PO NOW ONE Stop: 11/19/21 23:56 Ondansetron HCl (Ondansetron 4 Mg/2 Ml Inj) 4 mg IV NOW ONE Stop: 11/19/21 23:56 Vital Signs Vital signs: Vital Signs - 8 hr 11/19/21 21:30 11/19/21 22:05 11/19/21 22:36 Temperature 98.2 F Pulse Rate 90 81 77 Respiratory Rate 16 18 16 Blood Pressure 131/78 125/76 142/70 H Pulse Oximetry 96 95 98 11/19/21 22:43 11/19/21 23:00 Temperature Pulse Rate 71 67 Respiratory Rate Blood Pressure 128/72 Pulse Oximetry 98 97 Medical Decision Making Lab Data Result diagrams: 11/19/21 22:00 11/19/21 22:00 Labs: Lab Results 11/19/21 11/19/21 Range/Units 22:00 22:00 WBC 7.3 (4.5-11.0) X10^3/uL RBC 4.22 (4.0-5.2) X10^6/uL Hgb 12.5 (12.0-16.0) g/dL Hct 37.4 (36-46) % MCV 88.5 (80-100) fL MCH 29.6 (26-34) PG MCHC 33.5 (30-36) % RDW 13.8 (11.6-14.8) % Plt Count 292 (150-400) X10^3/uL Neut % (Auto) 54.3 (50-75) % Lymph % (Auto) 31.5 (25-40) % [place] % (Auto) 7.8 (3-14) % Eos % (Auto) 5.4 H (2-4) % Baso % (Auto) 1.0 (0-2) % Neut # (Auto) 4000 (4810-8286) /uL Lymph # (Auto) 2300 (6199-9392) /uL [place] # (Auto) 600 (0-900) /uL Eos # (Auto) 400 (0-450) /uL Baso # (Auto) 100 (0-100) /uL Sodium 138 (137-145) mmol/L Potassium 3.9 (3.4-5.1) mmol/L Chloride 106 (98-107) mmol/L Carbon Dioxide 25 (22-32) mmol/L BUN 13 (7-17) mg/dL Creatinine 0.78 (0.52-1.04) mg/dL Estimated GFR > 60.0 (>60) mL/min BUN/Creatinine Ratio 16.7 (6-22) Glucose 125 H (80-110) mg/dL Calcium 9.4 (8.4-10.2) mg/dL Total Bilirubin 0.4 (0.2-1.3) mg/dL AST 48 H (14-36) IU/L ALT 51 H (<35) IU/L Alkaline Phosphatase 87 (38-126) U/L Total Protein 8.1 (6.3-8.2) g/dL Albumin 4.7 (3.5-5.0) g/dL Globulin 3.4 (1.7-4.1) g/dL Albumin/Globulin Ratio 1.4 (1.0-2.8) Lipase 81 (23-300) U/L Imaging Data CT scan - abdomen/pelvis: Radiologist's Impression: FINDINGS:? Image quality:? Excellent.? ? Lung bases:? Unremarkable. Heart:? No significant findings. ? ABDOMEN: Liver:? Stable subcentimeter hypoattenuating lesion in the central liver is too small to characterize but most likely represents a cyst. Gallbladder:? Unremarkable. Biliary ducts:? Unremarkable.? ? Pancreas:? Unremarkable.? ? Spleen:? Unremarkable.? ? Adrenal Glands:? Unremarkable.? ? Kidneys and Ureters:? Unremarkable.? ? ? Stomach and Bowel:? Small hiatal hernia.? Normal appendix.? Multiple diverticula are seen in the colon.? There is trace fat stranding surrounding a diverticulum in the distal sigmoid colon with mild adjacent wall thickening, suspicious for mild or early diverticulitis.? No pneumoperitoneum.? No focal fluid collection or abscess.? No signs of bowel obstruction.? Peritoneum:? No abnormal intraperitoneal fluid.? No free air.? ? Ventral Wall: ? No hernias.? Abdominal Nodes:? No retroperitoneal or mesenteric adenopathy by size criteria.? Vessels:? Aorta and inferior vena cava are normal in size.? ? PELVIS: Pelvic Organs:? Unremarkable.? ? Bladder:? Unremarkable.? ? Pelvic Nodes: No enlarged lymph nodes.? Miscellaneous: No hernias are seen. ? ? ? Bones:? Mild degenerative changes are seen in the spine. ? ? IMPRESSION:? Mild acute uncomplicated sigmoid diverticulitis. ? ? Dictated by: Chriss Boateng M.D. on 11/19/2021 at 22:41 ? ? ECG Data Interpretation: Sinus rhythm at a rate of 71 Normal intervals, normal axis No acute ischemic changes MDM Narrative Medical decision making narrative: 71-year-old woman with 3 days lower abdominal pain and [address] of fever with CT scan suggesting developing diverticulitis without complication or perforation. White count is not significantly elevated there is no signs of sepsis. She is able to eat and drink as she usually can and will be safe for home discharge with outpatient antibiotics. At this time there is no evidence of developing abscess, appendicitis, perforation, sepsis or other reason for hospitalization. Discharge Plan Departure Patient Disposition: Home Clinical Impression: Diverticulitis Instructions: DI for Diverticulitis Activity Restrictions/Additional Instructions: Thank you for coming in this evening It does look like you are starting another episode of diverticulitis. Your white blood cell count is normal and there is no reason that you need to stay in the hospital at this time. You do need to complete 7 additional days of Levaquin, a powerful antibiotic for diverticulitis. I will also give you a prescription for Zofran/ondansetron to help with nausea if needed. Prescriptions were electronically transmitted to [facility] for you to picker and sorter load and unload tomorrow Regarding the loose stools and inability to eat fruit or vegetables, this is not normal and does need further workup. I would recommend that you talk to your primary care doctor and they may decide that referral to a store grocery merchandiser and possible colonoscopy could be an appropriate next step. If you find that you are getting worse, your unable to keep her medication down, the pain is unable to be controlled at home or you develop new symptoms you do need to return to the emergency department Prescriptions: New levofloxacin 750 mg tablet 750 mg PO DAILY Qty: 7 0RF ondansetron 4 mg tablet,disintegrating 4 mg PO Q8H PRN (Reason: nausea and vomiting) Qty: 10 0RF No Action lysine 500 MG tablet 500 mg PO QDAY Qty: 0 0RF lutein 20 MG tablet 20 mg PO QDAY Qty: 0 0RF GLUCOSAMINE/CHONDROITIN SULF A 1 cap PO QDAY Qty: 0 0RF liothyronine [Cytomel] 5 MCG tablet 5 mcg PO BID Qty: 0 0RF levothyroxine 137 MCG tablet 137 mcg PO QDAY Qty: 90 0RF estradiol cream 1 applic vaginal 2XW 0RF Rx Instructions: twice weekly compounded cream meclizine 25 mg tablet 25 mg PO TID PRN (Reason: dizziness) Qty: 10 0RF promethazine 25 mg suppository 25 mg MO Q6H PRN (Reason: nausea and vomiting) Qty: 12 0RF Referrals: Kade Fernandez ARNP [Primary Care Provider] -
[2021-11-19 22:05] VITALS: BP 125/76; PULSE 81; RESP 18; O2SAT 95
--- NOTE | 2021-11-19 22:13 | DI.CT.S_ITS ---
PROCEDURE: CT ABDOMEN PELVIS W CON INDICATIONS: abdominal pain TECHNIQUE: After the administration of intravenous contrast, axial sections acquired from the lung bases to the pubic symphysis. Coronal and sagittal reformats were performed. For radiation dose reduction, the following was used: automated exposure control, adjustment of mA and/or kV according to patient size. COMPARISON: [facility], CT, CT ABDOMEN PELVIS W CON, 01/15/2021, 21:03. FINDINGS: Image quality: Excellent. Lung bases: Unremarkable. Heart: No significant findings. ABDOMEN: Liver: Stable subcentimeter hypoattenuating lesion in the central liver is too small to characterize but most likely represents a cyst. Gallbladder: Unremarkable. Biliary ducts: Unremarkable. Pancreas: Unremarkable. Spleen: Unremarkable. Adrenal Glands: Unremarkable. Kidneys and Ureters: Unremarkable. Stomach and Bowel: Small hiatal hernia. Normal appendix. Multiple diverticula are seen in the colon. There is trace fat stranding surrounding a diverticulum in the distal sigmoid colon with mild adjacent wall thickening, suspicious for mild or early diverticulitis. No pneumoperitoneum. No focal fluid collection or abscess. No signs of bowel obstruction. Peritoneum: No abnormal intraperitoneal fluid. No free air. Ventral Wall: No hernias. Abdominal Nodes: No retroperitoneal or mesenteric adenopathy by size criteria. Vessels: Aorta and inferior vena cava are normal in size. PELVIS: Pelvic Organs: Unremarkable. Bladder: Unremarkable. Pelvic Nodes: No enlarged lymph nodes. Miscellaneous: No hernias are seen. Bones: Mild degenerative changes are seen in the spine. IMPRESSION: Mild acute uncomplicated sigmoid diverticulitis. Dictated by: Chriss Boateng M.D. on 11/19/2021 at 22:41 Approved by: Chriss Boateng M.D. on 11/19/2021 at 22:46
[2021-11-19 22:15] LABS: Add Manual Diff / Slide Review NO; Basophils Absolute Auto 100 /uL (0-100); Eosinophils Absolute Auto 400 /uL (0-450); Eosinophils Percent Auto 5.4 % (2-4); Hematocrit 37.4 % (36-46); Hemoglobin 12.5 g/dL (12.0-16.0); Lymphocytes Absolute Auto 2300 /uL (1100-4500); Lymphocytes Percent Auto 31.5 % (25-40); Mean Corpuscular HGB Conc 33.5 % (30-36); Mean Corpuscular Hemoglobin 29.6 PG (26-34); Mean Corpuscular Volume 88.5 fL (80-100); Monocytes Absolute Auto 600 /uL (0-900); Monocytes Percent Auto 7.8 % (3-14); Neutrophils Absolute Auto 4000 /uL (1500-7000); Neutrophils Percent Auto 54.3 % (50-75); Platelet Count 292 X10^3/uL (150-400); Red Blood Cell Count 4.22 X10^6/uL (4.0-5.2); Red Cell Distribution Width 13.8 % (11.6-14.8); White Blood Cell Count 7.3 X10^3/uL (4.5-11.0)
[2021-11-19 22:24] LABS: Alanine Aminotransferase 51 IU/L (<35); Albumin 4.7 g/dL (3.5-5.0); Albumin Globulin Ratio 1.4 (1.0-2.8); Alkaline Phosphatase 87 U/L (38-126); Aspartate Aminotransferase 48 IU/L (14-36); BUN Creatinine Ratio 16.7 (6-22); Bilirubin Total 0.4 mg/dL (0.2-1.3); Blood Urea Nitrogen 13 mg/dL (7-17); Calcium 9.4 mg/dL (8.4-10.2); Carbon Dioxide 25 mmol/L (22-32); Chloride 106 mmol/L (98-107); Estimated Glomerular Filt Rate > 60.0 mL/min (>60); Globulin 3.4 g/dL (1.7-4.1); Glucose 125 mg/dL (80-110); HEMOLYSIS < 15 (0-50); Lipase 81 U/L (23-300); Potassium 3.9 mmol/L (3.4-5.1); Sodium 138 mmol/L (137-145); Total Protein 8.1 g/dL (6.3-8.2)
[2021-11-19 22:36] VITALS: BP 142/70; PULSE 77; RESP 16; O2SAT 98
[2021-11-19 22:43] VITALS: PULSE 71; O2SAT 98
[2021-11-19 23:00] VITALS: BP 128/72; PULSE 67; O2SAT 97
[2021-11-20] MEDS: levoFLOXacin 250 MG TABLET 750 MG PO
[2021-11-20] MEDS: ONDANSETRON 4 MG/2 ML INJ IV (00:01)
== END 2021-11-20 00:34 | disposition home or self-care (01) ==
PROVIDERS: Emergency Provider Emergency Medicine; PCP Registered Nurse
DX: K57.32 Diverticulitis of large intestine without perforation or abscess without bleeding (principal); Z88.0 Allergy status to penicillin; Z86.79 Personal history of other diseases of the circulatory system
CPT/HCPCS: 36415; 74177; 80053; 83690; 85025; 93005; 93010; 99284; J2405

== ENCOUNTER → 2021-12-15 12:15 | Outpatient (CLI) | payer MEDICARE, OTHER, SELFPAY ==
[2021-01-15 23:21] VITALS: BMI 31.0
--- NOTE | 2021-12-15 | DI.US.S_ITS ---
PROCEDURE: US PERIPH VENOUS LOW EXTREM BI INDICATIONS: Localized swelling, mass and lump, lower limb, bilateral TECHNIQUE: Real-time imaging, as well as color and pulse Doppler interrogation, were performed of the deep veins of both legs from the inguinal ligament to the popliteal fossa. COMPARISON: None. FINDINGS: Right: The common femoral, femoral and popliteal veins are normally compressible, and free of intraluminal thrombus. Color and pulse Doppler demonstrate normal phasic intravascular flow. There is normal augmentation response to distal compression maneuver. Left: The common femoral, femoral and popliteal veins are normally compressible, and free of intraluminal thrombus. Color and pulse Doppler demonstrate normal phasic intravascular flow. There is normal augmentation response to distal compression maneuver. IMPRESSION: No evidence of DVT. Dictated by: Ba Craven M.D. on 12/15/2021 at 13:32 Approved by: Ba Craven M.D. on 12/15/2021 at 13:33
== END ==
PROVIDERS: PCP Registered Nurse; Referring Provider Nurse Practitioner Family; Visit Provider Nurse Practitioner Family
DX: R22.43 Localized swelling, mass and lump, lower limb, bilateral (principal)
CPT/HCPCS: 93970

== ENCOUNTER → 2022-02-10 13:59 | Outpatient (CLI) | payer MEDICARE, OTHER, SELFPAY ==
[2021-01-15 23:21] VITALS: BMI 31.0
--- NOTE | 2022-02-10 | DI.US.S_ITS ---
PROCEDURE: US THYROID INDICATIONS: NONTOXIC SINGLE THYROID NODULE TECHNIQUE: Real-time scanning was performed of the thyroid gland, with image documentation. COMPARISON: US, US THYROID, 05/31/2016, 16:04. [facility], [place], THYROID, 05/31/2017, 15:08. FINDINGS: Right: Thyroid lobe measures 2.5 x 0.9 x 0.6 cm, and is homogeneous in echotexture. Left: Thyroid lobe measures 2.7 x 1.1 x 0.6 cm, and is homogenous in echotexture. Isthmus: 4.4 mm thick. Nodule number: 1 Location: Right margin of the isthmus Size: 0.9 x 0.5 x 0.7 cm. (Previously 1.1 x 0.7 x 0.8) Composition: Solid Echogenicity: Isoechoic Shape: wider than tall. Margins: Smooth Echogenic foci: Non Total points: 2 ACR TI-RADS category: Not suspicious IMPRESSION: Isthmic nodule not significantly changed compared to prior examination. Based on size and imaging characteristics no additional follow-up is recommended. ACR TI-RADS definitions and recommendations: TI-RADS 1 (benign): 0 points. FNA not needed. TI-RADS 2 (not suspicious): 2 points. FNA not needed. TI-RADS 3 (mildly suspicious): 3 points. * FNA if 2.5 cm or larger, follow up if 1.5 cm or larger (at 1, 3, and 5 years). TI-RADS 4 (moderately suspicious): 4-6 points. * FNA if 1.5 cm or larger, follow up if 1 cm or larger (at 1, 2, 3, and 5 years). TI-RADS 5 (highly suspicious): 7 points or more. * FNA if 1 cm or larger, follow up if 0.5 cm or larger (every year for 5 years). Dictated by: Monisha Strickland MD, PhD on 02/10/2022 at 15:52 Approved by: Monisha Strickland MD, PhD on 02/10/2022 at 15:55
== END ==
PROVIDERS: PCP Registered Nurse; Referring Provider Registered Nurse; Visit Provider Registered Nurse
DX: E04.2 Nontoxic multinodular goiter (principal)
CPT/HCPCS: 76536

== ENCOUNTER → 2022-04-06 12:18 | Outpatient (CLI) | payer MEDICARE, OTHER, SELFPAY ==
[2021-01-15 23:21] VITALS: BMI 31.0
--- NOTE | 2022-04-06 12:20 | DI.ECHO.S_ITS ---
[facility] +---------+ : : [address] : : : : [id number] : : : : Phone: [phone]+ Echocardiogram Report + + :Name: MATTHEW BARRETT Study Date: 04/06/2022 Height: 67 in : :[facility] ReadingLocation: Weight: 190 lb : : Gender: Female BSA: 2.0 m2 : :: 1950 Age: 72 yrs BP: 128/80 mmHg: :Reason For Study: ATRIAL FIBRILLATION : :Ordering Physician: GARRY, : :JORDEN Performed By: Irina Ruelas : :Referring: GRACIA CASTAÑEDA : + + Interpretation Summary The ejection fraction is estimated to be 55-60%. Diastolic parameters suggest probable normal left ventricular diastolic function and normal filling pressures. The right ventricle is normal in size and function. There is trace aortic regurgitation. Pulmonary artery pressures cannot be estimated because of the lack of a measurable TR jet velocity. Procedure: A two-dimensional transthoracic echocardiogram with color flow and Doppler was performed. The study quality was technically difficult. There is no prior echocardiogram noted for this patient. The patient was in sinus rhythm with heart rates between 53-78 bpm during the exam. Left Ventricle: The left ventricle is normal in size and wall thickness. The ejection fraction is estimated to be 55-60%. Diastolic parameters suggest probable normal left ventricular diastolic function and normal filling pressures. Right Ventricle: The right ventricle is normal in size and function. Atria: The left atrial size is normal. Right atrial size is normal. There is no Doppler evidence for an interatrial shunt. Mitral Valve: The mitral valve is normal in structure and function. There is trace mitral regurgitation. Aortic Valve: The aortic valve is trileaflet. The aortic valve opens well. There is no aortic valve stenosis. There is trace aortic regurgitation. Tricuspid Valve: The tricuspid valve is not well visualized, but is grossly normal. No tricuspid regurgitation. Pulmonary artery pressures cannot be estimated because of the lack of a measurable TR jet velocity. Pulmonic Valve: The pulmonic valve is not well seen, but is grossly normal. There is trace pulmonic regurgitation. Great Vessels: The aortic root is normal size. The dimensions of the ascending aorta are normal. The IVC is of normal diameter and collapses greater than 50% with a sniff. This suggests a low right atrial pressure of 3 mm Hg. Pericardium/ Pleura There is no pericardial effusion. There is no pleural effusion. MMode/2D Measurements & Calculations LVIDd: 5.1 cm LVOT diam: 2.1 cm LVIDs: 3.3 cm Ao root diam: 3.5 cm FS: 34.6 % asc Aorta Diam: 3.6 cm EPSS: 0.83 cm Ao Arch Diam (Prox Trans): 2.6 cm IVSd: 0.78 cm LVPWd: 0.91 cm LV munoz. diameter/BSA (cm/m^2): 2.6 LV sys. diameter/BSA (cm/m^2): 1.7 LA A2 area: 20.1 cm2 RA long axis: 5.1 cm LA A4 area: 19.9 cm2 RA area: 16.6 cm2 LA length (vol): 5.6 cm RA vol: 45.9 ml LA vol: 60.7 ml RA : 23.2 ml/m2 LA vol index: 30.7 ml/m2 IVC diam: 1.3 cm RVD1 (basal): 3.7 cm RVD2 (mid): 3.3 cm TAPSE: 2.5 cm Doppler Measurements & Calculations Ao V2 max: 128.4 cm/sec LVOT Max Evangelista: 86.1 cm/sec Ao V2 mean: 87.0 cm/sec LV V1 max P.0 mmHg Ao max P.6 mmHg LV V1 VTI: 21.5 cm Ao mean P.3 mmHg ALBERTO(I,D): 2.6 cm2 Ao V2 VTI: 29.8 cm ALBERTO(V,D): 2.4 cm2 sev ratio: 0.72 ALBERTO indexed to BSA (cm^2/m^2): 1.3 MV E max evangelista: 56.9 cm/sec PA V2 max: 85.8 cm/sec MV A max evangelista: 71.7 cm/sec PA V2 mean: 62.6 cm/sec MV E/A: 0.79 PA mean P.7 mmHg Med Peak E' Evangelista: 6.0 cm/sec PA pr(Accel): 29.3 mmHg E/E' med: 9.4 Lat Peak E' Evangelista: 9.8 cm/sec E/E' lat: 5.8 E/e' average: 7.6 MV dec time: 0.35 sec SV(LVOT): 76.8 ml Reading Physician:02:39 PM
== END ==
PROVIDERS: PCP Registered Nurse; Referring Provider Internal Medicine Cardiovascular Disease; Visit Provider Internal Medicine Cardiovascular Disease
DX: I48.0 Paroxysmal atrial fibrillation (principal)
CPT/HCPCS: 93306

== ENCOUNTER 2022-10-24 10:44 | Emergency (ER) | payer MEDICARE, OTHER, SELFPAY ==
[2022-08-01 15:12] VITALS: BMI 31.0
[2022-10-24] VITALS (16 sets, daily range): BP systolic 118–159; BP diastolic 57–79; PULSE 53–69; RESP 18–37; TEMP 36.4; O2SAT 98–100; BMI 32.1
--- NOTE | 2022-10-24 10:55 | DI.RAD.S_ITS ---
PROCEDURE: XR CHEST 1V INDICATIONS: chest pain TECHNIQUE: One view of the chest was acquired. COMPARISON: [facility], CR, XR CHEST 1V, 10/21/2021, 4:27. FINDINGS: Surgical changes and devices: None. Lungs and pleura: Lungs are clear. No pleural effusions or pneumothorax. Mediastinum: Mediastinal contours appear normal. Heart size is normal. Bones and chest wall: No suspicious bony lesions. Overlying soft tissues appear unremarkable. IMPRESSION: No acute cardiopulmonary disease. Dictated by: Mariela Bettencourt M.D. on 10/24/2022 at 11:23 Approved by: Mariela Bettencourt M.D. on 10/24/2022 at 11:26
--- NOTE | 2022-10-24 11:01 | DI.CT.S_ITS ---
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 For radiation dose reduction, the following was used: automated exposure control, adjustment of mA and/or kV according to patient size. COMPARISON: None. FINDINGS: Image quality: Excellent. CSF spaces: Basal cisterns are patent. No extra-axial fluid collections. The ventricles are symmetric in size and shape. Brain: No intracranial bleeds or masses. There is cerebral volume loss for age, with resultant ventricular and sulcal prominence. There are periventricular and deep white matter chronic small vessel ischemic changes. There is intracranial internal carotid artery atherosclerosis. Skull and face: Calvarium and visualized facial bones appear intact, without suspicious lesions. Sinuses: Visualized sinuses and mastoids are clear. IMPRESSION: 1. No acute intracranial abnormalities. 2. Mild cerebral volume loss and chronic microvascular ischemic changes. Dictated by: Mariela Bettencourt M.D. on 10/24/2022 at 11:20 Approved by: Mariela Bettencourt M.D. on 10/24/2022 at 11:22
--- NOTE | 2022-10-24 11:24 | ED.NEUROSD ---
HPI - Neuro Symptoms/Deficit General Chief Complaint: Neuro Symptoms/Deficit Stated Complaint: sent by [facility] dizzy/low BP/Vomiting Time Seen by Provider: 10/24/22 10:46 Source: patient Mode of arrival: Ambulatory History of Present Illness HPI Narrative: 72-year-old female with history of hypothyroidism, diverticulitis, paroxysmal AFib and vertigo presents at the request of the walk-in clinic for further evaluation. She states she was in her normal state of health until 2 days ago and then yesterday over the course of the day she was feeling a bit lightheaded and fatigued. She states that this lightheadedness had no obvious provocation or palliation but was just lingering. In the evening she started developing a dizziness that she says is similar to prior episodes of vertigo. She states that she felt as if she were spinning, particularly any time she turned her head left or right or attempted to lay down. Remaining still helped significantly. She did have multiple episodes of significant vomiting with this. She was able to rest throughout the night and upon waking today she continued to have episodes of spinning and dizziness and felt her eyes twitching. She feels a bit better now and went to the walk-in clinic prior to being sent here. She denies any recent trauma or injury. She is had no fever or chills. She denies any blurred or double vision. She is had no trouble with speech or extremity numbness, tingling or weakness. She denies any recent change in medications or diet. She is had no travel and denies any ear pain, runny nose, sneezing or cough. She is had no chest pain or palpitations. She denies any exertional symptoms or recent exercise intolerance. She denies dysuria, frequency or urgency nor does she have abdominal pain, constipation or diarrhea. On Anticoagulants: Yes (ASA 81 mg daily) Related Data Home Medications Medication Instructions Recorded Confirmed GLUCOSAMINE/CHONDROITIN SULF A 1 cap PO QDAY ##0 04/15/16 01/15/21 levothyroxine 137 mcg tablet 137 mcg PO QDAY ##90 04/15/16 01/15/21 liothyronine 5 mcg tablet (Cytomel) 5 mcg PO BID #0 tabs 04/15/16 01/15/21 lutein 20 mg tablet 20 mg PO QDAY ##0 04/15/16 01/15/21 lysine 500 mg tablet 500 mg PO QDAY ##0 04/15/16 01/15/21 estradiol 1 applic vaginal 2XW 12/08/20 01/15/21 Previous Rx's Medication Instructions Recorded meclizine 25 mg tablet 25 mg PO TID PRN dizziness #10 tabs 10/21/21 promethazine 25 mg rectal 25 mg ID Q6H PRN nausea and 10/21/21 suppository vomiting #12 ea ondansetron 4 mg disintegrating 4 mg PO Q8H PRN nausea and 11/20/21 tablet vomiting #10 tabs meclizine 25 mg tablet 25 mg PO BID-TID PRN dizziness #14 10/24/22 tabs pantoprazole 40 mg tablet,delayed 40 mg PO DAILY #30 tabs 10/24/22 release (Protonix) Allergies Allergy/AdvReac Type Severity Reaction Status Date / Time ampicillin [AMPICILLIN] Allergy Unknown Verified 10/24/22 10:59 hydrocodone [HYDROCODONE] Allergy Unknown Verified 10/24/22 10:59 morphine [MORPHINE] Allergy Unknown Verified 10/24/22 10:59 Penicillins [PENICILLINS] Allergy Unknown Verified 10/24/22 10:59 Sulfa (Sulfonamide Allergy Unknown Verified 10/24/22 10:59 Antibiotics) [SULFA (SULFONAMIDE ANTIBIOTICS)] ondansetron AdvReac Mild Vomiting Verified 10/24/22 11:49 Review of Systems Review of Systems Narrative: GEN: See HPI HEENT: See HPI RESPIRATORY: Denies dyspnea, cough, wheezing, hemoptysis, sputum. CARDIOVASCULAR: See HPI GASTROINTESTINAL: See HPI : Denies dysuria, frequency, incontinence, hematuria, urinary retention. MUSCULOSKELETAL: denies weakness, joint pain, or bony pain SKIN: Denies rash, skin lesions, or other NEUROLOGIC: See HPI PSYCHIATRIC: No concerning psychosocial issues. 12 point review of systems is negative except for those stated above Hematologic/Lymphatic On Anticoagulants: Yes (ASA 81 mg daily) Patient History Medical History Diverticulitis Hypothyroidism Surgical History History of uterine suspension procedure Social History household members: none Smoking Status: Never smoker alcohol intake: current Smoking Status: Never smoker alcohol intake frequency: a few times a month Substance Use Type: does not use Exam Narrative Exam Narrative: GENERAL: [72] year old patient appears stated age. Well-developed patient, in mild distress. GCS 15 HEAD: Atraumatic. Normocephalic. EYES: Pupils equal round and reactive. Extraocular motions intact. No scleral icterus. No injection or drainage. No visible nystagmus ENT: Nose without bleeding, purulent drainage. Throat without erythema, tonsillar hypertrophy or exudate. Airway patent. No reproducible dizziness with [place] Hallpike NECK: Trachea midline. Non tender CARDIOVASCULAR: Regular rate and rhythm without murmurs, gallops, or rubs. RESPIRATORY: Clear to auscultation. Breath sounds equal bilaterally. No wheezes, rales, or rhonchi. GASTROINTESTINAL: Abdomen soft, non-tender, nondistended. EXTREMITIES: No edema or joint tenderness. BACK: Nontender without deformity or crepitance. No flank tenderness. NEURO: AOx3. SKIN: No rash or erythema of visible areas NIH Stroke Scale 1a. LOC: Patient is alert and keenly responsive (0) 1b. LOC Questions: Patient answers both LOC questions accurately (0) 1c. LOC Commands: Patient performs both tasks correctly (0) 2. Best Gaze: Normal (0) 3. Visual: No visual loss (0) 4. Facial palsy: Normal symmetrical movements (0) 5. Motor arm: No drift (0) 6. Motor leg: No drift (0) 7. Limb ataxia: Absent (0) 8. Sensory: Normal (0) 9. Best language: No aphasia; normal (0) 10. Dysarthria: Normal (0) 11. Extinction and inattention: No abnormality (0) NIHSS: 0 Initial Vital Signs Initial Vital Signs: Vital Signs Pulse Rate 69 10/24/22 10:54 Pulse Oximetry 98 10/24/22 10:54 Course Orders Ordered: ED Orders 10/24/22 10:55 XR chest 1V Stat EKG-12 Lead Stat 10/24/22 11:01 CT head/brain wo con Stat 10/24/22 11:25 Complete Blood Count AUTO DIFF Stat Comprehensive Metabolic Panel Stat Covid-19 + FLU A/B + RSV - PCR Stat Free T4, Direct Thyroxine Stat Lipase Stat Magnesium Stat Partial Thromboplastin Time Stat Prothrombin Time INR Stat TSH w/ Reflex to FT4 Stat Troponin & CK Cardiac Panel Stat Discontinued Medications Sodium Chloride (Normal Saline 0.9%) 1,000 mls @ 1,000 mls/hr IV BOLUS ONE Stop: 10/24/22 12:34 Last Infusion: 10/24/22 12:50 Dose: 0 mls/hr Documented By: Admin: 10/24/22 11:50 Dose: 1,000 mls/hr Documented By: NR Meclizine HCl (Meclizine Hcl 12.5 Mg Tablet) 50 mg PO NOW ONE Stop: 10/24/22 11:36 Last Admin: 10/24/22 11:50 Dose: 50 mg Documented By: NR Ondansetron HCl (Ondansetron 4 Mg/2 Ml Inj) 4 mg IV NOW ONE Stop: 10/24/22 11:36 Last Admin: 10/24/22 11:56 Dose: Not Given Documented By: NR Pantoprazole Sodium (Pantoprazole 40 Mg Vial) 40 mg IV NOW ONE Stop: 10/24/22 11:51 Last Admin: 10/24/22 11:53 Dose: 40 mg Documented By: NR Reevaluation(s) Reevaluation #1: Significant if not complete resolution of symptoms after above-stated therapies Vital Signs Vital signs: Vital Signs - 8 hr 10/24/22 10:56 10/24/22 10:54 10/24/22 11:00 Temperature 97.5 F L Pulse Rate 64 69 Pulse Rate [Orthostatic Lying] Pulse Rate [Orthostatic Sitting] Pulse Rate [Orthostatic Standing] Respiratory Rate 18 Blood Pressure 159/72 H 132/69 Blood Pressure [Orthostatic Lying] Blood Pressure [Orthostatic Sitting] Blood Pressure [Orthostatic Standing] Pulse Oximetry 99 98 Oxygen Delivery Method Room Air 10/24/22 11:00 10/24/22 11:11 10/24/22 11:11 Temperature Pulse Rate 65 61 Pulse Rate [Orthostatic Lying] Pulse Rate [Orthostatic Sitting] Pulse Rate [Orthostatic Standing] Respiratory Rate 20 Blood Pressure 138/69 Blood Pressure [Orthostatic Lying] Blood Pressure [Orthostatic Sitting] Blood Pressure [Orthostatic Standing] Pulse Oximetry 98 98 Oxygen Delivery Method Room Air 10/24/22 11:30 10/24/22 11:30 10/24/22 12:00 Temperature Pulse Rate 62 53 L Pulse Rate [Orthostatic Lying] Pulse Rate [Orthostatic Sitting] Pulse Rate [Orthostatic Standing] Respiratory Rate 25 H 19 Blood Pressure 146/72 H Blood Pressure [Orthostatic Lying] Blood Pressure [Orthostatic Sitting] Blood Pressure [Orthostatic Standing] Pulse Oximetry 98 100 Oxygen Delivery Method 10/24/22 12:01 10/24/22 12:01 10/24/22 12:30 Temperature Pulse Rate 54 L Pulse Rate [Orthostatic Lying] Pulse Rate [Orthostatic Sitting] Pulse Rate [Orthostatic Standing] Respiratory Rate 19 Blood Pressure 133/63 137/68 Blood Pressure [Orthostatic Lying] Blood Pressure [Orthostatic Sitting] Blood Pressure [Orthostatic Standing] Pulse Oximetry 99 Oxygen Delivery Method Room Air 10/24/22 12:30 10/24/22 12:59 10/24/22 12:59 Temperature Pulse Rate 56 L 62 Pulse Rate [Orthostatic Lying] Pulse Rate [Orthostatic Sitting] Pulse Rate [Orthostatic Standing] Respiratory Rate 19 29 H Blood Pressure 118/57 L Blood Pressure [Orthostatic Lying] Blood Pressure [Orthostatic Sitting] Blood Pressure [Orthostatic Standing] Pulse Oximetry 99 99 Oxygen Delivery Method 10/24/22 13:00 10/24/22 13:01 10/24/22 13:01 Temperature Pulse Rate 64 61 Pulse Rate [Orthostatic Lying] Pulse Rate [Orthostatic Sitting] Pulse Rate [Orthostatic Standing] Respiratory Rate 37 H 23 Blood Pressure 137/69 Blood Pressure [Orthostatic Lying] Blood Pressure [Orthostatic Sitting] Blood Pressure [Orthostatic Standing] Pulse Oximetry 99 99 Oxygen Delivery Method 10/24/22 13:19 10/24/22 13:03 10/24/22 13:03 Temperature Pulse Rate 63 Pulse Rate [Orthostatic Lying] 62 Pulse Rate [Orthostatic Sitting] 63 Pulse Rate [Orthostatic Standing] 63 Respiratory Rate 20 Blood Pressure 142/75 H Blood Pressure [Orthostatic Lying] 118/57 L Blood Pressure [Orthostatic Sitting] 137/69 Blood Pressure [Orthostatic Standing] 142/75 H Pulse Oximetry 100 Oxygen Delivery Method 10/24/22 13:11 10/24/22 13:11 Temperature Pulse Rate 69 Pulse Rate [Orthostatic Lying] Pulse Rate [Orthostatic Sitting] Pulse Rate [Orthostatic Standing] Respiratory Rate Blood Pressure 135/79 Blood Pressure [Orthostatic Lying] Blood Pressure [Orthostatic Sitting] Blood Pressure [Orthostatic Standing] Pulse Oximetry 98 Oxygen Delivery Method [facility] - Neuro Symptoms/Deficit Lab Data 10/24/22 11:25 10/24/22 11:25 Labs: Lab Results 10/24/22 10/24/22 10/24/22 Range/Units 11:25 11:25 11:25 WBC 5.6 (4.5-11.0) X10^3/uL RBC 4.40 (4.0-5.2) X10^6/uL Hgb 13.0 (12.0-16.0) g/dL Hct 38.4 (36-46) % MCV 87.4 (80-100) fL MCH 29.7 (26-34) PG MCHC 33.9 (30-36) % RDW 14.1 (11.6-14.8) % Plt Count 259 (150-400) X10^3/uL Neut % (Auto) 64.8 (50-75) % Lymph % (Auto) 23.7 L (25-40) % [place] % (Auto) 6.5 (3-14) % Eos % (Auto) 3.7 (2-4) % Baso % (Auto) 1.3 (0-2) % Neut # (Auto) 3600 (8067-0612) /uL Lymph # (Auto) 1300 (5843-0793) /uL [place] # (Auto) 400 (0-900) /uL Eos # (Auto) 200 (0-450) /uL Baso # (Auto) 100 (0-100) /uL PT 11.6 (10.1-12.7) SECONDS INR 1.0 (0.9-1.3) APTT 31 (26-36) SECONDS Sodium 140 (137-145) mmol/L Potassium 4.0 (3.4-5.1) mmol/L Chloride 110 H (98-107) mmol/L Carbon Dioxide 24 (22-32) mmol/L BUN 12 (7-17) mg/dL Creatinine 0.63 (0.52-1.04) mg/dL Estimated GFR > 60 (>60) mL/min BUN/Creatinine Ratio 19.0 (6-22) Glucose 95 (80-110) mg/dL Calcium 9.1 (8.4-10.2) mg/dL Magnesium 2.2 (1.6-2.3) mg/dL Total Bilirubin 0.4 (0.2-1.3) mg/dL AST 33 (14-36) IU/L ALT 25 (<35) IU/L Alkaline Phosphatase 70 (38-126) U/L Total Creatine Kinase 120 (30-135) U/L CK-MB (CK-2) 1.67 (<2.37) ng/mL CK-MB (CK-2) Rel Index 1.4 L (1.5-5.0) % Troponin I < 0.012 (0.01-0.034) ng/mL Total Protein 7.3 (6.3-8.2) g/dL Albumin 4.3 (3.5-5.0) g/dL Globulin 3.0 (1.7-4.1) g/dL Albumin/Globulin Ratio 1.4 (1.0-2.8) Lipase 57 (23-300) U/L TSH (0.47-4.68) uIU/mL Free T4 (0.78-2.19) ng/dL SARS-CoV-2 (PCR) (Negative) Influenza A (RT-PCR) (NEGATIVE) Influenza B (RT-PCR) (NEGATIVE) RSV (PCR) (Negative) 10/24/22 10/24/22 Range/Units 11:25 11:25 WBC (4.5-11.0) X10^3/uL RBC (4.0-5.2) X10^6/uL Hgb (12.0-16.0) g/dL Hct (36-46) % MCV (80-100) fL MCH (26-34) PG MCHC (30-36) % RDW (11.6-14.8) % Plt Count (150-400) X10^3/uL Neut % (Auto) (50-75) % Lymph % (Auto) (25-40) % [place] % (Auto) (3-14) % Eos % (Auto) (2-4) % Baso % (Auto) (0-2) % Neut # (Auto) (6131-6060) /uL Lymph # (Auto) (3642-7655) /uL [place] # (Auto) (0-900) /uL Eos # (Auto) (0-450) /uL Baso # (Auto) (0-100) /uL PT (10.1-12.7) SECONDS INR (0.9-1.3) APTT (26-36) SECONDS Sodium (137-145) mmol/L Potassium (3.4-5.1) mmol/L Chloride (98-107) mmol/L Carbon Dioxide (22-32) mmol/L BUN (7-17) mg/dL Creatinine (0.52-1.04) mg/dL Estimated GFR (>60) mL/min BUN/Creatinine Ratio (6-22) Glucose (80-110) mg/dL Calcium (8.4-10.2) mg/dL Magnesium (1.6-2.3) mg/dL Total Bilirubin (0.2-1.3) mg/dL AST (14-36) IU/L ALT (<35) IU/L Alkaline Phosphatase (38-126) U/L Total Creatine Kinase (30-135) U/L CK-MB (CK-2) (<2.37) ng/mL CK-MB (CK-2) Rel Index (1.5-5.0) % Troponin I (0.01-0.034) ng/mL Total Protein (6.3-8.2) g/dL Albumin (3.5-5.0) g/dL Globulin (1.7-4.1) g/dL Albumin/Globulin Ratio (1.0-2.8) Lipase (23-300) U/L TSH 0.22 L (0.47-4.68) uIU/mL Free T4 1.60 (0.78-2.19) ng/dL SARS-CoV-2 (PCR) Negative (Negative) Influenza A (RT-PCR) Flu a negative (NEGATIVE) Influenza B (RT-PCR) Flu b negative (NEGATIVE) RSV (PCR) Negative (Negative) Urine Dip Bedside Urine Glucose Negative Bedside Urine Bilirubin - Negative Bedside Urine Ketone - Negative Urine Specific [place] 1.010 Bedside Urine Occult Blood - Negative Bedside Urine pH 6.0 Bedside Urine Protein - Negative Bedside Urine Urobilinogen - Negative Bedside Urine Nitrite - Negative Bedside Urine Leukocytes - Negative Esterase Imaging Data CT scan - head: Radiologist's Impression: [address] [address] [address] Scan Report Signed Patient: Angelica Stewart MR#: [id number] : 1950 Acct:[id number] Age/Sex: 72 / F Date of Service: 10/24/22 Loc: ED Accession Number: [id number] ?? Procedure: CT head/brain wo con Ordering Provider: Alber Forrest D.O. PROCEDURE:? CT HEAD/BRAIN WO CON ? INDICATIONS:? 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 TECHNIQUE:? Noncontrast 4.5 mm thick angled axial sections acquired from the foramen magnum to the vertex, with coronal and sagittal reformats.? For radiation dose reduction, the following was used:? automated exposure control, adjustment of mA and/or kV according to patient size.? ? COMPARISON:? None. ? FINDINGS:? Image quality:? Excellent.? ? CSF spaces:? Basal cisterns are patent.? No extra-axial fluid collections.? The ventricles are symmetric in size and shape.? ? Brain:? No intracranial bleeds or masses.? There is cerebral volume loss for age, with resultant ventricular and sulcal prominence.? There are periventricular and deep white matter chronic small vessel ischemic changes.? There is intracranial internal carotid artery atherosclerosis.? ? Skull and face:? Calvarium and visualized facial bones appear intact, without suspicious lesions.? ? Sinuses:? Visualized sinuses and mastoids are clear.? ? IMPRESSION:? ? 1. No acute intracranial abnormalities. ? 2. Mild cerebral volume loss and chronic microvascular ischemic changes. ? ? ? Dictated by: Mariela Bettencourt M.D. on 10/24/2022 at 11:20 ? ? Approved by: Mariela Bettencourt M.D. on 10/24/2022 at 11:22 ? Chest x-ray: Radiologist's Impression: Allergy/Adv: ampicillin, hydrocodone, morphine, Penicillins, Sulfa (Sulfonamide Antibiotics) (More??) Close Head CT (Signed) Mariela Bettencourt - 10/24/22 Chest X-Ray (Signed) Mariela Bettencourt - 10/24/22 Echocardiogram Ultrasound (Signed) Sera Díaz - 04/06/22 Thyroid Ultrasound (Signed) Monisha Strickland - 02/10/22 Vascular Ultrasound (Signed) Ba Craven - 12/15/21 Abdomen/Pelvis CT (Signed) Chriss Boateng - 11/19/21 Head/Neck CTA (Signed) Marco AMonisha - 10/21/21 Chest X-Ray (Signed) Monisha Strickland - 10/21/21 Abdomen/Pelvis CT (Signed) SchmidtJose Juan - 01/15/21 Shoulder X-Ray (Signed) Poli Schuster - 11/24/20 Shoulder X-Ray (Signed) Poli Schuster - 11/24/20 Lumbar Spine X-Ray (Signed) Poli Schuster - 11/24/20 Cervical Spine X-Ray (Signed) Huma Bravo - 09/09/19 Foot X-Ray (Signed) Rafa Duron - 05/15/19 Launch?Image [address] [address] XRay Report Signed Patient: Angelica Stewart MR#: [id number] : 1950 Acct:[id number] Age/Sex: 72 / F Date of Service: 10/24/22 Loc: ED Accession Number: [id number] ?? Procedure: XR chest 1V Ordering Provider: Alber Forrest D.O. PROCEDURE:? XR CHEST 1V ? INDICATIONS:? chest pain ? TECHNIQUE:? One view of the chest was acquired.? ? COMPARISON:? [facility], , XR CHEST 1V, 10/21/2021, 4:27. ? FINDINGS:? ? Surgical changes and devices:? None.? ? Lungs and pleura:? Lungs are clear.? No pleural effusions or pneumothorax.? ? Mediastinum:? Mediastinal contours appear normal.? Heart size is normal.? ? Bones and chest wall:? No suspicious bony lesions.? Overlying soft tissues appear unremarkable.? ? IMPRESSION:? No acute cardiopulmonary disease. ? ? Dictated by: Mariela Bettencourt M.D. on 10/24/2022 at 11:23 ? ? Approved by: Mariela Bettencourt M.D. on 10/24/2022 at 11:26 ? ECG Data Interpretation: [1100] EKG is normal sinus rhythm rate [62 ] and free of any signs of ischemia or ectopy. No ST segmental elevation or depression. No T wave inversions MDM Narrative Medical decision making narrative: CC: 72-year-old female with history of vertigo, paroxysmal AFib, GERD, hypothyroid Complicating co-morbidities: AFib, hypothyroid, age Data collected from: Patient Medical records reviewed: Prior notes in our EMR have been evaluated Differential considered, but not limited to: Stroke, myocardial infarction, thyroid abnormality, electrolyte abnormality, dehydration, gastroenteritis, flu, COVID, benign paroxysmal vertigo, labyrinthitis versus other Exam documented above, pertinent findings include: Normal NIH, negative [place]Hallpike, heart rate regular, no increased work of breathing, abdomen soft, moist mucous membranes Lab Test results independently reviewed as above. Pertinent findings: no significant abnormal findings Independently reviewed EKG as above Imaging studies independently reviewed: Head CT and CXR without acute findings Scores Used: NIHSS Treatments: saline, meclizine, and protonix Re-evaluations: significant if not complete resolution with above-stated therapies, orthostatics unremarkable, patient able to ambulate through the department without difficulty, no ongoing dizziness or vertiginous complaints Discussion: 72-year-old female with recent lightheadedness, nausea and vomiting presents with reproducible dizziness and report of nystagmus. Cardiac, electrolyte abnormalities, UTI, stroke considered but thought unlikely given history, physical, imaging and labs as well as response to therapies. She has significant improvement after these therapies as stated above and at this time, thankfully no indication for admission, transfer. 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 As we discussed your history and physical exam as well as labs, response to therapies and imaging are very reassuring and there is no evidence of stroke, heart attack or other significant abnormality that would require a specific treatment] *What to do: *Please continue to take your regular medications as directed. [ x] New medication prescriptions sent to your pharmacy: [[facility] ] [ ] New medication written as a paper prescription [ ] No new medications given *Please follow up with your primary care provider in 2-3 days, call for an appointment. Let them know you were seen in the Emergency Department and that we ask that you be seen in follow up. We will electronically transmit a record of today's note if your PCP is in our system *If you do not have a primary care provider please contact the [facility] Resource line at [phone]. They will ask some questions about your medical history and help get you set up with a doctor in the community. *Return to Emergency Department if you should have any new, worsening or concerning symptoms, such as [fever greater than 101 F, shaking chills, worsening pain, persistent vomiting or other bothersome symptoms] Prescriptions: New meclizine 25 mg tablet 25 mg PO BID-TID PRN (Reason: dizziness) Qty: 14 0RF pantoprazole [Protonix] 40 mg tablet,delayed release (DR/EC) 40 mg PO DAILY Qty: 30 0RF No Action lysine 500 MG tablet 500 mg PO QDAY Qty: 0 lutein 20 MG tablet 20 mg PO QDAY Qty: 0 GLUCOSAMINE/CHONDROITIN SULF A 1 cap PO QDAY Qty: 0 liothyronine [Cytomel] 5 MCG tablet 5 mcg PO BID Qty: 0 levothyroxine 137 MCG tablet 137 mcg PO QDAY Qty: 90 estradiol cream 1 applic vaginal 2XW Rx Instructions: twice weekly compounded cream meclizine 25 mg tablet 25 mg PO TID PRN (Reason: dizziness) Qty: 10 0RF promethazine 25 mg suppository 25 mg ID Q6H PRN (Reason: nausea and vomiting) Qty: 12 0RF ondansetron 4 mg tablet,disintegrating 4 mg PO Q8H PRN (Reason: nausea and vomiting) Qty: 10 0RF Referrals: Kade Fernandez ARNP [Primary Care Provider] - Stand Alone Forms: Patient Portal/API
[2022-10-24 11:40] LABS: Add Manual Diff / Slide Review NO; Basophils Absolute Auto 100 /uL (0-100); Basophils Percent Auto 1.3 % (0-2); Eosinophils Absolute Auto 200 /uL (0-450); Eosinophils Percent Auto 3.7 % (2-4); Hematocrit 38.4 % (36-46); Lymphocytes Absolute Auto 1300 /uL (1100-4500); Lymphocytes Percent Auto 23.7 % (25-40); Mean Corpuscular HGB Conc 33.9 % (30-36); Mean Corpuscular Hemoglobin 29.7 PG (26-34); Mean Corpuscular Volume 87.4 fL (80-100); Monocytes Absolute Auto 400 /uL (0-900); Monocytes Percent Auto 6.5 % (3-14); Neutrophils Absolute Auto 3600 /uL (1500-7000); Neutrophils Percent Auto 64.8 % (50-75); Platelet Count 259 X10^3/uL (150-400); Red Cell Distribution Width 14.1 % (11.6-14.8); White Blood Cell Count 5.6 X10^3/uL (4.5-11.0)
[2022-10-24 11:49] LABS: Prothrombin Time 11.6 SECONDS (10.1-12.7)
[2022-10-24] MEDS: MECLIZINE HCL 12.5 MG TABLET 50 MG PO (11:50)
[2022-10-24] MEDS: SODIUM CHLORIDE 0.9% 1,000 ML 1000 ML IV (11:50)
[2022-10-24 11:52] LABS: PTT Partial Thromboplastin Tim 31 SECONDS (26-36)
[2022-10-24] MEDS: PANTOPRAZOLE 40 MG VIAL IV (11:53)
[2022-10-24 11:59] LABS: Alanine Aminotransferase 25 IU/L (<35); Albumin 4.3 g/dL (3.5-5.0); Albumin Globulin Ratio 1.4 (1.0-2.8); Alkaline Phosphatase 70 U/L (38-126); Aspartate Aminotransferase 33 IU/L (14-36); Bilirubin Total 0.4 mg/dL (0.2-1.3); Blood Urea Nitrogen 12 mg/dL (7-17); Calcium 9.1 mg/dL (8.4-10.2); Carbon Dioxide 24 mmol/L (22-32); Chloride 110 mmol/L (98-107); Creatine Kinase 120 U/L (30-135); Estimated Glomerular Filt Rate > 60 mL/min (>60); Glucose 95 mg/dL (80-110); HEMOLYSIS < 15 (0-50); Lipase 57 U/L (23-300); Magnesium 2.2 mg/dL (1.6-2.3); Sodium 140 mmol/L (137-145); Total Protein 7.3 g/dL (6.3-8.2)
[2022-10-24 12:11] LABS: Troponin I < 0.012 ng/mL (0.01-0.034)
[2022-10-24 12:14] LABS: CKMB % Relative Index 1.4 % (1.5-5.0); Creatine Kinase MB 1.67 ng/mL (<2.37)
[2022-10-24 12:20] LABS: Influenza A - CEPHEID Flu A NEGATIVE (NEGATIVE); Influenza B - CEPHEID Flu B NEGATIVE (NEGATIVE); Respiratory Syncytial Virus Negative (Negative)
[2022-10-24 12:22] LABS: COVID-19 CEPHEID 4-PLEX PCR Negative (Negative)
[2022-10-24 12:30] LABS: TSH w/ Reflex to FT4 0.22 uIU/mL (0.47-4.68)
--- NOTE | 2022-10-24 13:05 | PC.NURSE ---
pt states she felt off balance last night after dinner. then lightheaded. tried laying down around midnight and started vomiting. took her BP and states it was low (100/50s) feels better sitting up right and worse laying down. this morning states she felt like her eyes were going crazy. denies fevers. has been NPO since yesterday due to being nervous about vomiting again.
== END 2022-10-24 13:57 | disposition home or self-care (01) ==
PROVIDERS: Emergency Provider Emergency Medicine; PCP Registered Nurse
DX: R11.2 Nausea with vomiting, unspecified (principal); R42 Dizziness and giddiness; R07.9 Chest pain, unspecified; I48.91 Unspecified atrial fibrillation; Z79.01 Long term (current) use of anticoagulants; Z20.822 Contact with and (suspected) exposure to COVID-19
CPT/HCPCS: 0241U; 36415; 70450; 71045; 80053; 81003; 82550; 82553; 83690; 83735; 84439; 84443; 84484; 85025; 85610; 85730; 93005; 93010; 96361; 96374; 99284; C9113

== ENCOUNTER → 2022-11-13 16:36 | Outpatient (CLI) | payer MEDICARE, OTHER, SELFPAY ==
[2022-08-01 15:12] VITALS: BMI 31.0
--- NOTE | 2022-11-13 16:38 | DI.MRI.S_ITS ---
PROCEDURE: MR LUMBAR SPINE WO CON INDICATIONS: Sciatica, unspecified side TECHNIQUE: Noncontrast sagittal T1 spin echo and T2 fast echo, sagittal STIR, and T2 fast spin echo through the lumbar spine. In cases with scoliosis, additional coronal T2 fast spin echo may be performed. COMPARISON: [facility], CR, XR LUMBAR SPINE 2-3V, 11/24/2020, 14:18. FINDINGS: Image quality: Mildly degraded by motion Alignment: Trace retrolisthesis of L1 on L2. Trace anterolisthesis of L4 on L5. There is a rudimentary S1-S2 disc. Marrow: No evidence of acute fracture. Multilevel disc desiccation and height loss. Cord: Conus terminates at L1. Unremarkable appearance of the cauda equina nerve roots. There is a bit of clumping seen at L4-L5. 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 No paravertebral abscess or hematoma identified. Specific levels: T12-L1: Small diffuse disc bulge. Mild facet arthropathy. Mild left neural foraminal narrowing L1-L2: Small diffuse disc bulge with a superimposed central protrusion. Mild central narrowing. Rqtn-kb-[id number] facet arthropathy. Mild right and ufnt-id-hxsodewg left neural foraminal narrowing. L2-L3: Diffuse disc bulge and sijw-as-evdssjmq facet arthropathy. Mild central narrowing. This affects the right subarticular recess slightly asymmetrically. Mild neural foraminal narrowing bilaterally. L3-L4: Moderate facet arthropathy. Diffuse disc bulge. Mild to moderate central narrowing affecting both subarticular recesses. Mild to moderate right and mild left neural foraminal narrowing. L4-L5: There is uncovering of the disc. Moderate facet arthropathy. Diffuse disc bulge. Moderate central narrowing affecting the right greater than left subarticular recesses. Mild bilateral neural foraminal narrowing. L5-S1: Diffuse disc bulge. Moderate facet arthropathy. Mild bilateral neural foraminal narrowing. IMPRESSION: Vsdj-gi-qqaytnuz overall spondylosis. The worst level is L4-L5, with there is disc disease, facet disease, as well as disc uncovering from anterolisthesis resulting in moderate thecal sac narrowing, slightly affecting the right subarticular recess asymmetrically. Dictated by: Wayne Mccrary M.D. on 11/14/2022 at 8:24 Approved by: Wayne Mccrary M.D. on 11/14/2022 at 8:31
== END ==
PROVIDERS: PCP Registered Nurse; Referring Provider Registered Nurse; Visit Provider Registered Nurse
DX: M51.16 Intervertebral disc disorders with radiculopathy, lumbar region (principal); M47.26 Other spondylosis with radiculopathy, lumbar region; M43.16 Spondylolisthesis, lumbar region
CPT/HCPCS: 72148

== ENCOUNTER → 2023-05-17 14:43 | Outpatient (CLI) | payer MEDICARE, OTHER, SELFPAY ==
[2022-08-01 15:12] VITALS: BMI 31.0
--- NOTE | 2023-05-17 | DI.MG.S_ITS ---
BILATERAL DIGITAL SCREENING MAMMOGRAM 3D/2D WITH CAD: 05/17/2023 CLINICAL: Routine screening. Comparison is made to exams dated: 07/08/2021 mammogram, 05/12/2020 mammogram, and 04/01/2019 mammogram - [facility]. There are scattered areas of fibroglandular density in both breasts (category b / 25%-50% glandular tissue). Current study was also evaluated with a Computer Aided Detection (CAD) system. There is a focal asymmetry in the right breast upper outer quadrant. No other significant masses, calcifications, or other findings are seen in either breast. IMPRESSION: INCOMPLETE: NEEDS ADDITIONAL IMAGING EVALUATION Right breast upper outer quadrant focal asymmetry. Needs additional imaging evaluation. Recommend Right breast mammogram and ultrasound. Based on the Tyrer Cuzick model (a risk assessment model) the patient's lifetime risk is 3.1% and her 10 year risk is 2.1%. According to the ACR, ACS, and NCCN guidelines, an annual breast MRI exam along with mammogram is recommended if the patient's lifetime risk is 20% or greater. This exam was interpreted at Station ID: [id number]. NOTE: For mammograms, a report in lay terms will be sent to the patient. Approximately 15% of breast malignancies will not be visualized mammographically. In the management of a palpable breast mass, a negative mammogram must not discourage biopsy of a clinically suspicious lesion. Electronically Signed By: eLanne bah/:05/17/2023 16:49:45 letter sent: Additional Imaging Needed ACR BI-RADS Category 0: Incomplete 3340F
== END ==
PROVIDERS: PCP Registered Nurse; Referring Provider Registered Nurse; Visit Provider Registered Nurse
DX: Z12.31 Encounter for screening mammogram for malignant neoplasm of breast (principal)
CPT/HCPCS: 77063; 77067

== ENCOUNTER → 2023-06-04 12:00 | Outpatient (CLI) | payer MEDICARE, OTHER, SELFPAY ==
[2022-08-01 15:12] VITALS: BMI 31.0
--- NOTE | 2023-06-04 | DI.MG.S_ITS ---
UNILATERAL RIGHT DIGITAL DIAGNOSTIC MAMMOGRAM 3D/2D WITH ADDITIONAL VIEWS: 06/04/2023 CLINICAL: Additional evaluation requested from prior study. Comparison is made to exams dated: 05/17/2023 mammogram - [facility], 07/08/2021 mammogram, and 05/12/2020 mammogram - [facility]. There are scattered areas of fibroglandular density in the right breast (category b / 25%-50% glandular tissue). There is a focal asymmetry in the right breast upper outer quadrant, retrospectively stable since 2009. No significant masses, calcifications, or other findings are seen in the breast. IMPRESSION: BENIGN Right breast upper outer quadrant focal asymmetry stable since 2009 consistent with benign etiology. No mammographic evidence of malignancy. A 1 year screening mammogram is recommended. Findings and recommendations were conveyed to the patient during today's evaluation. Based on the Tyrer Cuzick model (a risk assessment model) the patient's lifetime risk is 3.1% and her 10 year risk is 2.1%. According to the ACR, ACS, and NCCN guidelines, an annual breast MRI exam along with mammogram is recommended if the patient's lifetime risk is 20% or greater. This exam was interpreted at Station ID: [id number]. NOTE: For mammograms, a report in lay terms will be sent to the patient. Approximately 15% of breast malignancies will not be visualized mammographically. In the management of a palpable breast mass, a negative mammogram must not discourage biopsy of a clinically suspicious lesion. Electronically Signed By: Leanne Marrero M.D. esb/:06/04/2023 12:51:42 letter sent: Normal Exam ACR BI-RADS Category 2: Benign Finding(s) 3342F
== END ==
PROVIDERS: PCP Registered Nurse; Referring Provider Registered Nurse; Visit Provider Registered Nurse
DX: R92.8 Other abnormal and inconclusive findings on diagnostic imaging of breast (principal); N64.89 Other specified disorders of breast
CPT/HCPCS: 77065; G0279

== ENCOUNTER 2023-07-12 08:56 | Emergency (ER) | payer MEDICARE, OTHER, SELFPAY ==
[2022-08-01 15:12] VITALS: BMI 31.0
[2023-07-12 09:03] VITALS: BP 144/76; PULSE 123; RESP 12; TEMP 36.5; O2SAT 97; BMI 31.1
[2023-07-12 09:04] VITALS: BP 144/76; PULSE 107; O2SAT 97
--- NOTE | 2023-07-12 09:06 | DI.RAD.S_ITS ---
PROCEDURE: XR CHEST 1V INDICATIONS: chest pain TECHNIQUE: One view of the chest was acquired. COMPARISON: [facility], CR, XR CHEST 1V, 10/24/2022, 11:11. FINDINGS: Surgical changes and devices: None. Lungs and pleura: Lungs are clear. No pleural effusions or pneumothorax. Mediastinum: Mediastinal contours appear normal. Heart size is enlarged. Bones and chest wall: No suspicious bony lesions. Overlying soft tissues appear unremarkable. IMPRESSION: Portable chest within normal limits for age. Dictated by: Huma Bravo M.D. on 07/12/2023 at 9:55 Approved by: Huma Bravo M.D. on 07/12/2023 at 9:57
[2023-07-12 09:23] LABS: Add Manual Diff / Slide Review NO; Basophils Absolute Auto 100 /uL (0-100); Basophils Percent Auto 0.8 % (0-2); Eosinophils Absolute Auto 500 /uL (0-450); Eosinophils Percent Auto 6.8 % (2-4); Hematocrit 40.2 % (36-46); Hemoglobin 13.6 g/dL (12.0-16.0); Lymphocytes Absolute Auto 2400 /uL (1100-4500); Lymphocytes Percent Auto 34.8 % (25-40); Mean Corpuscular HGB Conc 33.7 % (30-36); Mean Corpuscular Hemoglobin 29.8 PG (26-34); Mean Corpuscular Volume 88.3 fL (80-100); Monocytes Absolute Auto 500 /uL (0-900); Monocytes Percent Auto 7.4 % (3-14); Neutrophils Absolute Auto 3500 /uL (1500-7000); Neutrophils Percent Auto 50.2 % (50-75); Platelet Count 286 X10^3/uL (150-400); Red Blood Cell Count 4.56 X10^6/uL (4.0-5.2); Red Cell Distribution Width 14.1 % (11.6-14.8)
--- NOTE | 2023-07-12 09:23 | ED_ITS ---
HPI - Arrhythmia/Palpitations General Chief Complaint: Arrhythmia/Palpitations Stated Complaint: in AFIb /LOC Time Seen by Provider: 07/12/23 09:15 Source: family Mode of arrival: Family Vehicle History of Present Illness HPI narrative: Patient sees cardiology [facility] Dr. Díaz. Patient diagnosed new onset atrial fibrillation October 21, 2021. She is on carvedilol 12.5 mg at night only. She is only on baby aspirin daily. She did follow up with cardiology services and she declined to be on anticoagulation due to family history/concerns. Patient states since last year she developed symptoms episodically once a month lasting about 11 hours. In the past 6 weeks she is had episodes every 2 weeks now. They are becoming more frequent. She took extra carvedilol this morning 12.5 mg. Patient in no distress at this time. She felt very dizzy and near-syncope with this episode. Related Data Home Medications Medication Instructions Recorded Confirmed GLUCOSAMINE/CHONDROITIN SULF A 1 cap PO QDAY ##0 04/15/16 01/15/21 levothyroxine 137 mcg tablet 137 mcg PO QDAY ##90 04/15/16 01/15/21 liothyronine 5 mcg tablet (Cytomel) 5 mcg PO BID #0 tabs 04/15/16 01/15/21 lutein 20 mg tablet 20 mg PO QDAY ##0 04/15/16 01/15/21 lysine 500 mg tablet 500 mg PO QDAY ##0 04/15/16 01/15/21 estradiol 1 applic vaginal 2XW 12/08/20 01/15/21 Previous Rx's Medication Instructions Recorded meclizine 25 mg tablet 25 mg PO TID PRN dizziness #10 tabs 10/21/21 promethazine 25 mg rectal 25 mg VT Q6H PRN nausea and 10/21/21 suppository vomiting #12 ea ondansetron 4 mg disintegrating 4 mg PO Q8H PRN nausea and 11/20/21 tablet vomiting #10 tabs meclizine 25 mg tablet 25 mg PO BID-TID PRN dizziness #14 10/24/22 tabs pantoprazole 40 mg tablet,delayed 40 mg PO DAILY #30 tabs 10/24/22 release (Protonix) Allergies Allergy/AdvReac Type Severity Reaction Status Date / Time ampicillin [AMPICILLIN] Allergy Unknown Verified 07/12/23 09:05 hydrocodone [HYDROCODONE] Allergy Unknown Verified 07/12/23 09:05 morphine [MORPHINE] Allergy Unknown Verified 07/12/23 09:05 Penicillins [PENICILLINS] Allergy Unknown Verified 07/12/23 09:05 Sulfa (Sulfonamide Allergy Unknown Verified 07/12/23 09:05 Antibiotics) [SULFA (SULFONAMIDE ANTIBIOTICS)] ondansetron AdvReac Mild Vomiting Verified 07/12/23 09:05 Review of Systems Review of Systems Narrative: GENERAL: negative chills, fatigue, malaise, fever, sweats. HEENT: negative sinus pain, ear pain, sore throat RESPIRATORY: negative dyspnea, cough CARDIOVASCULAR: negative chest pain, positive palpitations GASTROINTESTINAL: negative nausea, vomiting, abdominal pain : negative dysuria, frequency, hematuria MUSCULOSKELETAL: negative muscle or bony pain SKIN: negative rash, skin lesions NEUROLOGIC: negative weakness, numbness, positive dizziness ROS Unobtainable: All systems reviewed & are unremarkable except as noted in HPI and below Patient History Medical History Diverticulitis Hypothyroidism Surgical History History of uterine suspension procedure Social History household members: none Smoking Status: Never smoker alcohol intake: current Smoking Status: Never smoker alcohol intake frequency: a few times a month Substance Use Type: does not use Exam Narrative Exam Narrative: GENERAL: in no distress, not toxic not dyspneic HEAD: Normocephalic. EYES: Pupils equal round ENT: Mucous membranes moist. NECK: Trachea midline. CARDIOVASCULAR: Tachycardic with irregularly irregular and rhythm RESPIRATORY: Clear to auscultation. Breath sounds equal bilaterally. No wheezes, rales, or rhonchi. GASTROINTESTINAL: Abdomen soft, non-tender EXTREMITIES: No gross deformities. BACK: No flank tenderness. NEURO: AOx4. SKIN: Warm and dry PSYCH: Not anxious, is cooperative Initial Vital Signs Initial Vital Signs: Vital Signs Temperature 97.7 F 07/12/23 09:03 Pulse Rate 123 H 07/12/23 09:03 Respiratory Rate 12 07/12/23 09:03 Blood Pressure 144/76 H 07/12/23 09:03 Pulse Oximetry 97 07/12/23 09:03 Oxygen Delivery Method Room Air 07/12/23 09:03 Course Orders Ordered: Discontinued Medications Aspirin (Aspirin 81 Mg Chew Tab) 324 mg PO NOW ONE Stop: 07/12/23 09:07 Last Admin: 07/12/23 09:24 Dose: 243 mg Documented By: [place] Metoprolol Tartrate (Metoprolol Tartrate 5 Mg/5 Ml Inj) 5 mg IV NOW ONE Stop: 07/12/23 09:38 Last Admin: 07/12/23 10:04 Dose: Not Given Documented By: [place] Vital Signs Vital signs: Vital Signs - 8 hr 07/12/23 09:03 07/12/23 09:04 07/12/23 09:04 Temperature 97.7 F Pulse Rate 123 H 107 H Respiratory Rate 12 Blood Pressure 144/76 H 144/76 H Pulse Oximetry 97 97 Oxygen Delivery Method Room Air MDM - Arrhythmia/Palpitations Lab Data 07/12/23 09:01 07/12/23 09:01 Labs: Lab Results 07/12/23 07/12/23 Range/Units 09:01 09:10 WBC 7.0 (4.5-11.0) X10^3/uL RBC 4.56 (4.0-5.2) X10^6/uL Hgb 13.6 (12.0-16.0) g/dL Hct 40.2 (36-46) % MCV 88.3 (80-100) fL MCH 29.8 (26-34) PG MCHC 33.7 (30-36) % RDW 14.1 (11.6-14.8) % Plt Count 286 (150-400) X10^3/uL Neut % (Auto) 50.2 (50-75) % Lymph % (Auto) 34.8 (25-40) % Stevens % (Auto) 7.4 (3-14) % Eos % (Auto) 6.8 H (2-4) % Baso % (Auto) 0.8 (0-2) % Neut # (Auto) 3500 (6847-9175) /uL Lymph # (Auto) 2400 (0259-5974) /uL Stevens # (Auto) 500 (0-900) /uL Eos # (Auto) 500 H (0-450) /uL Baso # (Auto) 100 (0-100) /uL PT 11.2 (10.1-12.7) SECONDS INR 1.0 (0.9-1.3) APTT 31 (26-36) SECONDS Sodium 138 (137-145) mmol/L Potassium 4.2 (3.4-5.1) mmol/L Chloride 106 (98-107) mmol/L Carbon Dioxide 23 (22-32) mmol/L BUN 13 (7-17) mg/dL Creatinine 0.76 (0.52-1.04) mg/dL Estimated GFR > 60 (>60) mL/min BUN/Creatinine Ratio 17.1 (6-22) Glucose 119 H (80-110) mg/dL Calcium 9.4 (8.4-10.2) mg/dL Magnesium 2.2 (1.6-2.3) mg/dL Total Bilirubin 0.4 (0.2-1.3) mg/dL AST 33 (14-36) IU/L ALT 35 H (<35) IU/L Alkaline Phosphatase 68 (38-126) U/L Total Creatine Kinase 111 (30-135) U/L Troponin I < 0.012 (0.01-0.034) ng/mL Total Protein 7.3 (6.3-8.2) g/dL Albumin 4.2 (3.5-5.0) g/dL Globulin 3.1 (1.7-4.1) g/dL Albumin/Globulin Ratio 1.4 (1.0-2.8) Lipase 90 (23-300) U/L TSH 0.566 (0.47-4.68) uIU/mL [facility] Narrative Medical decision making narrative: Patient sees cardiology [facility] Dr. Díaz. Patient diagnosed new onset atrial fibrillation October 21, 2021. She is on carvedilol 12.5 mg at night only. She is only on baby aspirin daily. She did follow up with cardiology services and she declined to be on anticoagulation due to family history/concerns. Patient states since last year she developed symptoms episodically once a month lasting about 11 hours. In the past 6 weeks she is had episodes every 2 weeks now. They are becoming more frequent. She took extra carvedilol this morning 12.5 mg. Patient in no distress at this time. She felt very dizzy and near-syncope with this episode. After history and exam CBC CMP EKG troponin youth nutritional monitor chest x-ray [facility] CC: Palpitation Complicating co-morbidities: AFib on only aspirin Data collected from: Patient Medical records reviewed: ER visit here October 21, 2021 Differential considered: Includes but not limited to paroxysmal AFib, STEMI non-STEMI Exam documented above, pertinent findings include: Tachycardia with irregularly irregular rate and rhythm Lab Test results independently reviewed as above. Pertinent findings: WBC 7.0 hemoglobin 13.6 INR 1.0 sodium 138 potassium 4.2 magnesium 2.2 calcium 9.4 troponin less than 0.012 TSH pending at time of discharge but does not spinning frame changer. Independently reviewed EKG atrial fibrillation with RVR response, rate 122 10:01 a.m.. Repeat EKG after conversion on her own, sinus bradycardia rate 59 Imaging studies independently reviewed: Chest x-ray Consultations: 9:40 a.m.. Spoke with Cardiology, Dr. 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 Recommends giving metoprolol IV for rate control. Would not do a calcium channel blockers. Patient does not need echocardiogram. Will need admission if rate does not get controlled. Would strongly encourage patient to start anticoagulation. Patient history of onset is not entirely clear of this episode. It may be 11 hours 12 hours however has had intermittent episodes in the past 2 weeks. Would not cardiovert at this time as patient is not anticoagulated Treatments: Aspirin Re-evaluations: 10:00 a.m.. Metoprolol IV was ordered however patient converted on her own. She is now sinus rhythm rate 59. Blood pressure stable. I reviewed with her my discussion with Dr. Antonio. We strongly encourage her to be on anticoagulation, at this time she does not want to be on it. She will see another retail manager for 2nd opinion. She does understands risk of stroke heart attack worsening symptoms permanent injury loss of limb or tissue or organs is possible with no anticoagulation. This has been reviewed with her retail manager as well. No complaints at this time. She states she may try to take the metoprolol at home 12.5 mg twice a day instead of just at bedtime. Discussion: Appropriate for discharge home. Patient case was reviewed with cardiology services. Patient only needs rate controlled. No echocardiogram or observation. Patient did convert. No symptoms at time of discharge. She desires discharge home. Return precautions reviewed with her. Diagnosis: Paroxysmal atrial fibrillation Discharge Plan Departure Patient Disposition: Home Clinical Impression: Atrial fibrillation Instructions: DI for Atrial Fibrillation Activity Restrictions/Additional Instructions: Please continue home medications. Please do see cardiology service as you plan for 2nd opinion. We do encourage you to start anticoagulation for atrial fibrillation. Risks and benefits were reviewed with you. Return if worse or if any questions or concerns Prescriptions: No Action lysine 500 MG tablet 500 mg PO QDAY Qty: 0 lutein 20 MG tablet 20 mg PO QDAY Qty: 0 GLUCOSAMINE/CHONDROITIN SULF A 1 cap PO QDAY Qty: 0 liothyronine [Cytomel] 5 MCG tablet 5 mcg PO BID Qty: 0 levothyroxine 137 MCG tablet 137 mcg PO QDAY Qty: 90 estradiol cream 1 applic vaginal 2XW Rx Instructions: twice weekly compounded cream meclizine 25 mg tablet 25 mg PO TID PRN (Reason: dizziness) Qty: 10 0RF promethazine 25 mg suppository 25 mg VT Q6H PRN (Reason: nausea and vomiting) Qty: 12 0RF ondansetron 4 mg tablet,disintegrating 4 mg PO Q8H PRN (Reason: nausea and vomiting) Qty: 10 0RF meclizine 25 mg tablet 25 mg PO BID-TID PRN (Reason: dizziness) Qty: 14 0RF pantoprazole [Protonix] 40 mg tablet,delayed release (DR/EC) 40 mg PO DAILY Qty: 30 0RF Referrals: Kade Fernandez ARNP [Primary Care Provider] - Stand Alone Forms: Patient Portal/API
[2023-07-12] MEDS: ASPIRIN 81 MG CHEW TAB 324 MG PO (09:24)
[2023-07-12 09:30] VITALS: BP 133/59; PULSE 63; RESP 23; O2SAT 98
[2023-07-12 09:31] LABS: Prothrombin Time 11.2 SECONDS (10.1-12.7)
[2023-07-12 09:34] LABS: PTT Partial Thromboplastin Tim 31 SECONDS (26-36)
[2023-07-12 09:36] LABS: Alanine Aminotransferase 35 IU/L (<35); Albumin 4.2 g/dL (3.5-5.0); Albumin Globulin Ratio 1.4 (1.0-2.8); Alkaline Phosphatase 68 U/L (38-126); Aspartate Aminotransferase 33 IU/L (14-36); BUN Creatinine Ratio 17.1 (6-22); Bilirubin Total 0.4 mg/dL (0.2-1.3); Blood Urea Nitrogen 13 mg/dL (7-17); Calcium 9.4 mg/dL (8.4-10.2); Carbon Dioxide 23 mmol/L (22-32); Chloride 106 mmol/L (98-107); Creatine Kinase 111 U/L (30-135); Estimated Glomerular Filt Rate > 60 mL/min (>60); Globulin 3.1 g/dL (1.7-4.1); Glucose 119 mg/dL (80-110); HEMOLYSIS < 15 (0-50); Lipase 90 U/L (23-300); Magnesium 2.2 mg/dL (1.6-2.3); Potassium 4.2 mmol/L (3.4-5.1); Sodium 138 mmol/L (137-145); Total Protein 7.3 g/dL (6.3-8.2)
[2023-07-12 09:47] LABS: Troponin I < 0.012 ng/mL (0.01-0.034)
[2023-07-12 10:00] VITALS: BP 113/57; PULSE 58; RESP 23; O2SAT 97
[2023-07-12 10:14] VITALS: BP 113/57; PULSE 57; RESP 20; TEMP 36.6; O2SAT 97
[2023-07-12 10:26] LABS: Thyroid Stimulating Hormone 0.566 uIU/mL (0.47-4.68)
== END 2023-07-12 10:06 | disposition home or self-care (01) ==
PROVIDERS: Emergency Provider Emergency Medicine; PCP Registered Nurse
DX: I48.0 Paroxysmal atrial fibrillation (principal); R42 Dizziness and giddiness; R55 Syncope and collapse; R07.9 Chest pain, unspecified; Z79.899 Other long term (current) drug therapy
CPT/HCPCS: 36415; 71045; 80053; 82550; 83690; 83735; 84443; 84484; 85025; 85610; 85730; 93005; 99284

== ENCOUNTER 2023-08-21 21:36 | Emergency (ER) | payer MEDICARE, OTHER, SELFPAY ==
[2022-08-01 15:12] VITALS: BMI 31.0
[2023-08-21 21:38] VITALS: BP 161/97; PULSE 154; RESP 16; TEMP 36.8; O2SAT 99; BMI 30.7
--- NOTE | 2023-08-21 22:04 | ED.ARRPALP ---
HPI - Arrhythmia/Palpitations General Chief Complaint: Arrhythmia/Palpitations Stated Complaint: heart is pounding Time Seen by Provider: 08/21/23 21:47 Source: patient Mode of arrival: Ambulatory History of Present Illness HPI narrative: Patient is a 73-year-old female. History of paroxysmal atrial fibrillation. Is not on blood thinners. Does take 12.5 mg of metoprolol in the evening. She states that at baseline her heart rate is in the 40s to 50s. She has had multiple episodes of atrial fibrillation in the past. She states that often she will convert back to sinus rhythm sometime between 9 and 11 hours after the onset. She states that this evening at about 2145 hours she started to feel like she was in AFib. Was different this time she states she feels like her heart was pounding harder. Not lightheaded. Not short of breath. She did not take her metoprolol this evening she states she normally takes this right before bed. She has seen cardiology in the past. They recommended blood thinners but she is not taken them. 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 Related Data Home Medications Medication Instructions Recorded Confirmed GLUCOSAMINE/CHONDROITIN SULF A 1 cap PO QDAY ##0 04/15/16 01/15/21 levothyroxine 137 mcg tablet 137 mcg PO QDAY ##90 04/15/16 01/15/21 liothyronine 5 mcg tablet (Cytomel) 5 mcg PO BID #0 tabs 04/15/16 01/15/21 lutein 20 mg tablet 20 mg PO QDAY ##0 04/15/16 01/15/21 lysine 500 mg tablet 500 mg PO QDAY ##0 04/15/16 01/15/21 estradiol 1 applic vaginal 2XW 12/08/20 01/15/21 Previous Rx's Medication Instructions Recorded meclizine 25 mg tablet 25 mg PO TID PRN dizziness #10 tabs 10/21/21 promethazine 25 mg rectal 25 mg DC Q6H PRN nausea and 10/21/21 suppository vomiting #12 ea ondansetron 4 mg disintegrating 4 mg PO Q8H PRN nausea and 11/20/21 tablet vomiting #10 tabs meclizine 25 mg tablet 25 mg PO BID-TID PRN dizziness #14 10/24/22 tabs pantoprazole 40 mg tablet,delayed 40 mg PO DAILY #30 tabs 10/24/22 release (Protonix) Allergies Allergy/AdvReac Type Severity Reaction Status Date / Time ampicillin [AMPICILLIN] Allergy Unknown Verified 07/12/23 09:05 hydrocodone [HYDROCODONE] Allergy Unknown Verified 07/12/23 09:05 morphine [MORPHINE] Allergy Unknown Verified 07/12/23 09:05 Penicillins [PENICILLINS] Allergy Unknown Verified 07/12/23 09:05 Sulfa (Sulfonamide Allergy Unknown Verified 07/12/23 09:05 Antibiotics) [SULFA (SULFONAMIDE ANTIBIOTICS)] amoxicillin Allergy Verified 08/21/23 21:51 ondansetron AdvReac Mild Vomiting Verified 07/12/23 09:05 Review of Systems Constitutional Constitutional: Reports system reviewed and no additional complaints, except as documented Cardiovascular Cardiovascular: Reports system reviewed and no additional complaints, except as documented Respiratory Respiratory: Reports system reviewed and no additional complaints, except as documented Integumentary/Breasts Skin/Breast: Reports system reviewed and no additional complaints, except as documented Neurologic Neurologic: Reports system reviewed and no additional complaints, except as documented Hematologic/Lymphatic On Anticoagulants: No Patient History Medical History Diverticulitis Hypothyroidism Surgical History History of uterine suspension procedure Social History household members: none Smoking Status: Never smoker alcohol intake: current Smoking Status: Never smoker alcohol intake frequency: a few times a month Substance Use Type: does not use Exam Initial Vital Signs Initial Vital Signs: Vital Signs Temperature 98.2 F 08/21/23 21:38 Pulse Rate 154 H 08/21/23 21:38 Respiratory Rate 16 08/21/23 21:38 Blood Pressure 161/97 H 08/21/23 21:38 Pulse Oximetry 99 08/21/23 21:38 Oxygen Delivery Method Room Air 08/21/23 21:38 Const General: cooperative, comfortable and No ill appearing HENMT Head: normal to inspection and normocephalic Resp Effort & Inspection: normal respiratory effort Auscultation: clear to auscultation bilaterally Cardio Rate: tachycardic Rhythm: abnormal rhythm irregularly irregular Skin General: no rashes or lesions noted Neuro General: patient alert, patient awake and moves all extremities Extrem General: capillary refill normal Scores GCS Rosemary coma scale eye opening: Spontaneous Charlotte coma scale verbal response: Orientated Rosemary coma scale motor response: Obey commands Rosemary coma scale total score: 15 Course Orders Ordered: ED Orders 08/21/23 21:47 EKG-12 Lead Stat 08/21/23 21:50 Basic Metabolic Panel Stat Complete Blood Count AUTO DIFF Stat Magnesium Stat Thyroid Stimulating Hormone Stat Discontinued Medications Diltiazem HCl (Diltiazem 5 Mg/Ml Sdv) 10 mg IV NOW ONE Stop: 08/21/23 22:04 Last Admin: 08/21/23 22:19 Dose: 10 mg Documented By: NANNETTE Metoprolol Tartrate (Metoprolol Ir 25 Mg Tablet) 12.5 mg PO NOW ONE Stop: 08/21/23 23:04 Last Admin: 08/21/23 23:10 Dose: 12.5 mg Documented By: NANNETTE Vital Signs Vital signs: Vital Signs - 8 hr 08/21/23 21:38 08/21/23 22:19 Temperature 98.2 F Pulse Rate 154 H 126 H Respiratory Rate 16 Blood Pressure 161/97 H 156/78 H Pulse Oximetry 99 Oxygen Delivery Method Room Air MDM - Arrhythmia/Palpitations Lab Data Attestation: I reviewed the patient's lab results. 08/21/23 21:50 08/21/23 21:50 Labs: Lab Results 08/21/23 Range/Units 21:50 WBC 7.3 (4.5-11.0) X10^3/uL RBC 4.61 (4.0-5.2) X10^6/uL Hgb 13.8 (12.0-16.0) g/dL Hct 40.6 (36-46) % MCV 88.1 (80-100) fL MCH 29.9 (26-34) PG MCHC 33.9 (30-36) % RDW 14.1 (11.6-14.8) % Plt Count 291 (150-400) X10^3/uL Neut % (Auto) 40.1 L (50-75) % Lymph % (Auto) 43.1 H (25-40) % [place] % (Auto) 6.9 (3-14) % Eos % (Auto) 8.8 H (2-4) % Baso % (Auto) 1.1 (0-2) % Neut # (Auto) 2900 (8219-0797) /uL Lymph # (Auto) 3100 (1029-8763) /uL [place] # (Auto) 500 (0-900) /uL Eos # (Auto) 600 H (0-450) /uL Baso # (Auto) 100 (0-100) /uL Sodium 139 (137-145) mmol/L Potassium 3.6 (3.4-5.1) mmol/L Chloride 103 (98-107) mmol/L Carbon Dioxide 27 (22-32) mmol/L BUN 16 (7-17) mg/dL Creatinine 0.84 (0.52-1.04) mg/dL Estimated GFR > 60 (>60) mL/min BUN/Creatinine Ratio 19.0 (6-22) Glucose 123 H (80-110) mg/dL Calcium 9.5 (8.4-10.2) mg/dL Magnesium 2.3 (1.6-2.3) mg/dL ECG Data Attestation: I personally reviewed and interpreted this ECG as follows: Interpretation: Atrial fibrillation Ventricular rate 124 Normal axis Normal QRS Nonspecific ST T wave changes MDM Narrative Medical decision making narrative: Patient has a history of paroxysmal AFib. Not on anticoagulation. Has not taken her metoprolol this evening. She states that normally her heart rate is in the 40s to 50s. Here in the ER has had a variable heart rate from 120s to 140s. No chest pain. Not hypotensive. Her symptoms started within the past couple hours. Had a long discussion with her regarding her options to include rate control versus rhythm control. I recommended rhythm control however the patient did not want to pursue this. She was given 1 dose of diltiazem IV. This improved her heart rate to where she was consistently in the 80s to 105 beats per minute. Continue to be normotensive. She states that the pounding in her heart improved. I once again discussed options with her. I once again recommended cardioversion for rhythm control however patient declined this offer. Because she is now rate controlled we will hold on admission to the hospital. We discussed starting her on anticoagulation but she does not want to start this as well. Informed her that atrial fibrillation does increase her risk of stroke and she expressed understanding of this but still would like to just stay on an aspirin. She has a follow-up with Cardiology in 2 days. She is aware that we potentially will not be able to cardiovert her in the near future if she does not convert on her own. She was fairly convinced that she will convert on her own in this potentially will happen but she understands that if it does not she will still be looking at a cardioversion in the future as an outpatient. Patient has a GCS of 15. Alert and oriented x3. Not clinically intoxicated. In my opinion has capacity to make decisions. After the above shared decision making will discharge patient home with instructions to continue to take her metoprolol and keep her follow-up appointment with Cardiology and that she could return to the emergency department for further evaluation she desired knowing that cardioversion may not be an option depending on timing. Discharge Plan Departure Patient Disposition: Home Clinical Impression: Atrial fibrillation Instructions: DI for Atrial Fibrillation Activity Restrictions/Additional Instructions: I do recommend that you continue to take your metoprolol as directed. I recommend that you also keep your scheduled follow-up appointment with Cardiology. Despite my recommendation you opted not to start any blood thinners. If you have worsening symptoms or feeling like her heart is beating fast or pounding again please return to the emergency department for further evaluation. Prescriptions: No Action lysine 500 MG tablet 500 mg PO QDAY Qty: 0 lutein 20 MG tablet 20 mg PO QDAY Qty: 0 GLUCOSAMINE/CHONDROITIN SULF A 1 cap PO QDAY Qty: 0 liothyronine [Cytomel] 5 MCG tablet 5 mcg PO BID Qty: 0 levothyroxine 137 MCG tablet 137 mcg PO QDAY Qty: 90 estradiol cream 1 applic vaginal 2XW Rx Instructions: twice weekly compounded cream meclizine 25 mg tablet 25 mg PO TID PRN (Reason: dizziness) Qty: 10 0RF promethazine 25 mg suppository 25 mg DC Q6H PRN (Reason: nausea and vomiting) Qty: 12 0RF ondansetron 4 mg tablet,disintegrating 4 mg PO Q8H PRN (Reason: nausea and vomiting) Qty: 10 0RF meclizine 25 mg tablet 25 mg PO BID-TID PRN (Reason: dizziness) Qty: 14 0RF pantoprazole [Protonix] 40 mg tablet,delayed release (DR/EC) 40 mg PO DAILY Qty: 30 0RF Referrals: Kade Fernandez ARNP [Primary Care Provider] - Stand Alone Forms: Patient Portal/API
[2023-08-21 22:12] LABS: Add Manual Diff / Slide Review NO; Basophils Absolute Auto 100 /uL (0-100); Basophils Percent Auto 1.1 % (0-2); Eosinophils Absolute Auto 600 /uL (0-450); Eosinophils Percent Auto 8.8 % (2-4); Hematocrit 40.6 % (36-46); Hemoglobin 13.8 g/dL (12.0-16.0); Lymphocytes Absolute Auto 3100 /uL (1100-4500); Lymphocytes Percent Auto 43.1 % (25-40); Mean Corpuscular HGB Conc 33.9 % (30-36); Mean Corpuscular Hemoglobin 29.9 PG (26-34); Mean Corpuscular Volume 88.1 fL (80-100); Monocytes Absolute Auto 500 /uL (0-900); Monocytes Percent Auto 6.9 % (3-14); Neutrophils Absolute Auto 2900 /uL (1500-7000); Neutrophils Percent Auto 40.1 % (50-75); Platelet Count 291 X10^3/uL (150-400); Red Blood Cell Count 4.61 X10^6/uL (4.0-5.2); Red Cell Distribution Width 14.1 % (11.6-14.8); White Blood Cell Count 7.3 X10^3/uL (4.5-11.0)
[2023-08-21 22:16] LABS: Blood Urea Nitrogen 16 mg/dL (7-17); Calcium 9.5 mg/dL (8.4-10.2); Carbon Dioxide 27 mmol/L (22-32); Chloride 103 mmol/L (98-107); Estimated Glomerular Filt Rate > 60 mL/min (>60); Glucose 123 mg/dL (80-110); HEMOLYSIS < 15 (0-50); Magnesium 2.3 mg/dL (1.6-2.3); Potassium 3.6 mmol/L (3.4-5.1); Sodium 139 mmol/L (137-145)
[2023-08-21 22:19] VITALS: BP 156/78; PULSE 126
[2023-08-21] MEDS: dilTIAZem 5 MG/ML SDV 10 MG IV (22:19)
[2023-08-21] MEDS: METOPROLOL IR 25 MG TABLET 12.5 MG PO (23:10)
[2023-08-21 23:28] LABS: Thyroid Stimulating Hormone 1.54 uIU/mL (0.47-4.68)
== END 2023-08-21 23:29 | disposition home or self-care (01) ==
PROVIDERS: Emergency Provider Emergency Medicine; PCP Registered Nurse
DX: I48.91 Unspecified atrial fibrillation (principal)
CPT/HCPCS: 36415; 80048; 83735; 84443; 85025; 93005; 93010; 96374; 99284

== ENCOUNTER 2023-09-03 19:00 | Emergency (ER) | payer MEDICARE, OTHER, SELFPAY ==
[2022-08-01 15:12] VITALS: BMI 31.0
[2023-09-03 19:05] VITALS: BP 137/74; PULSE 63; RESP 16; TEMP 36.3; O2SAT 99; BMI 30.7
--- NOTE | 2023-09-03 20:11 | ED.WOUNDLAC ---
HPI - Wound/Laceration General Chief Complaint: Wound/Laceration Stated Complaint: left hand cut Time Seen by Provider: 09/03/23 20:03 Source: patient Mode of arrival: Ambulatory History of Present Illness HPI narrative: 73-year-old female who is here for evaluation of a cut to the palm of her left hand. She states that she was trying to get a knife out of the kitchen sink when she states that it punctured the palm of her left hand. She thinks that it went? about an inch? no other injuries from the event. She did wash it out prior to arrival. Related Data Home Medications Medication Instructions Recorded Confirmed GLUCOSAMINE/CHONDROITIN SULF A 1 cap PO QDAY ##0 04/15/16 01/15/21 levothyroxine 137 mcg tablet 137 mcg PO QDAY ##90 04/15/16 01/15/21 liothyronine 5 mcg tablet (Cytomel) 5 mcg PO BID #0 tabs 04/15/16 01/15/21 lutein 20 mg tablet 20 mg PO QDAY ##0 04/15/16 01/15/21 lysine 500 mg tablet 500 mg PO QDAY ##0 04/15/16 01/15/21 estradiol 1 applic vaginal 2XW 12/08/20 01/15/21 Previous Rx's Medication Instructions Recorded meclizine 25 mg tablet 25 mg PO TID PRN dizziness #10 tabs 10/21/21 promethazine 25 mg rectal 25 mg DC Q6H PRN nausea and 10/21/21 suppository vomiting #12 ea ondansetron 4 mg disintegrating 4 mg PO Q8H PRN nausea and 11/20/21 tablet vomiting #10 tabs meclizine 25 mg tablet 25 mg PO BID-TID PRN dizziness #14 10/24/22 tabs pantoprazole 40 mg tablet,delayed 40 mg PO DAILY #30 tabs 10/24/22 release (Protonix) Allergies Allergy/AdvReac Type Severity Reaction Status Date / Time ampicillin [AMPICILLIN] Allergy Unknown Verified 07/12/23 09:05 hydrocodone [HYDROCODONE] Allergy Unknown Verified 07/12/23 09:05 morphine [MORPHINE] Allergy Unknown Verified 07/12/23 09:05 Penicillins [PENICILLINS] Allergy Unknown Verified 07/12/23 09:05 Sulfa (Sulfonamide Allergy Unknown Verified 07/12/23 09:05 Antibiotics) [SULFA (SULFONAMIDE ANTIBIOTICS)] amoxicillin Allergy Verified 08/21/23 21:51 ondansetron AdvReac Mild Vomiting Verified 07/12/23 09:05 Review of Systems Constitutional Constitutional: Reports system reviewed and no additional complaints, except as documented Musculoskeletal Musculoskeletal: Reports system reviewed and no additional complaints, except as documented Integumentary/Breasts Skin/Breast: Reports system reviewed and no additional complaints, except as documented Neurologic Neurologic: Reports system reviewed and no additional complaints, except as documented Patient History Medical History Diverticulitis Hypothyroidism Surgical History History of uterine suspension procedure Social History household members: none Smoking Status: Never smoker alcohol intake: current Smoking Status: Never smoker alcohol intake frequency: a few times a month Substance Use Type: does not use Exam Initial Vital Signs Initial Vital Signs: Vital Signs Temperature 97.4 F L 09/03/23 19:05 Pulse Rate 63 09/03/23 19:05 Respiratory Rate 16 09/03/23 19:05 Blood Pressure 137/74 09/03/23 19:05 Pulse Oximetry 99 09/03/23 19:05 Oxygen Delivery Method Room Air 09/03/23 19:05 Cardio Pulses: radial pulses present on the left Skin Other: 2 cm puncture wound to the palm of the left hand in the ulnar aspect. No active bleeding. Neuro Sensory Exam: no sensory deficits noted Extrem Other: 2 cm puncture wound to the palm of the left hand ulnar aspect. Patient is able to flex and extend both active and passive at the MCP PIP DI P joint of the left hand. Procedures Laceration Repair Laceration 1: Site: hand Side (If applicable): left Size (cm): 2 Description: linear Pre-repair: irrigated extensively and deep structures intact Skin layer closed with: steri-strips Course Vital Signs Vital signs: Vital Signs - 8 hr 09/03/23 19:05 Temperature 97.4 F L Pulse Rate 63 Respiratory Rate 16 Blood Pressure 137/74 Pulse Oximetry 99 Oxygen Delivery Method Room Air MDM - Wound/Laceration MDM Narrative Medical decision making narrative: Low suspicion for foreign body. Low suspicion for fracture. No indication for radiologic studies. Patient is neurovascularly intact. Given the fact that this was a puncture wound will close with Steri-Strips to allow for drainage if needed. Patient was given care instructions and return precautions. She expressed understanding and agreement. We will hold on any antibiotics for now I would only start antibiotics if a infection develops. Discharge Plan Departure Patient Disposition: Home Clinical Impression: Laceration Instructions: DI for Minor Laceration Activity Restrictions/Additional Instructions: You can put topical antibiotic ointment over the area. You can keep the area bandaged. The Steri-Strips will come off on their own sometime in the next week. You can wash her hand like normal but do not soak your hand in any fluids. Return to the emergency department for new symptoms. Prescriptions: No Action lysine 500 MG tablet 500 mg PO QDAY Qty: 0 lutein 20 MG tablet 20 mg PO QDAY Qty: 0 GLUCOSAMINE/CHONDROITIN SULF A 1 cap PO QDAY Qty: 0 liothyronine [Cytomel] 5 MCG tablet 5 mcg PO BID Qty: 0 levothyroxine 137 MCG tablet 137 mcg PO QDAY Qty: 90 estradiol cream 1 applic vaginal 2XW Rx Instructions: twice weekly compounded cream meclizine 25 mg tablet 25 mg PO TID PRN (Reason: dizziness) Qty: 10 0RF promethazine 25 mg suppository 25 mg DC Q6H PRN (Reason: nausea and vomiting) Qty: 12 0RF ondansetron 4 mg tablet,disintegrating 4 mg PO Q8H PRN (Reason: nausea and vomiting) Qty: 10 0RF meclizine 25 mg tablet 25 mg PO BID-TID PRN (Reason: dizziness) Qty: 14 0RF pantoprazole [Protonix] 40 mg tablet,delayed release (DR/EC) 40 mg PO DAILY Qty: 30 0RF Referrals: Kade Fernandez ARNP [Primary Care Provider] - Stand Alone Forms: Patient Portal/API
== END 2023-09-03 20:51 | disposition home or self-care (01) ==
PROVIDERS: Emergency Provider Emergency Medicine; PCP Registered Nurse
DX: S61.412A Laceration without foreign body of left hand, initial encounter (principal); W26.0XXA Contact with knife, initial encounter
CPT/HCPCS: 99281

== ENCOUNTER 2023-09-11 21:43 | Emergency (ER) | payer MEDICARE, OTHER, SELFPAY ==
[2022-08-01 15:12] VITALS: BMI 31.0
[2023-09-11] VITALS (32 sets, daily range): BP systolic 104–157; BP diastolic 57–88; PULSE 74–118; RESP 13–25; TEMP 36.9; O2SAT 94–99; BMI 30.7
--- NOTE | 2023-09-11 21:54 | DI.RAD.S_ITS ---
PROCEDURE: XR CHEST 1V INDICATIONS: chest pain TECHNIQUE: One view of the chest was acquired. COMPARISON: [facility], CR, XR CHEST 1V, 07/12/2023, 9:09. [facility], CR, XR CHEST 1V, 10/24/2022, 11:11. FINDINGS: Surgical changes and devices: None. Lungs and pleura: Lungs are clear. No pleural effusions or pneumothorax. Mediastinum: Mediastinal contours appear normal. Heart size is normal. Bones and chest wall: No suspicious bony lesions. Overlying soft tissues appear unremarkable. IMPRESSION: No acute cardiopulmonary abnormality is seen. Dictated by: Geoffrey Hill M.D. on 09/11/2023 at 22:14 Approved by: Geoffrey Hill M.D. on 09/11/2023 at 22:14
[2023-09-11 22:02] LABS: Add Manual Diff / Slide Review NO; Basophils Absolute Auto 100 /uL (0-100); Eosinophils Absolute Auto 800 /uL (0-450); Eosinophils Percent Auto 8.6 % (2-4); Hematocrit 39.2 % (36-46); Hemoglobin 13.3 g/dL (12.0-16.0); Lymphocytes Absolute Auto 3600 /uL (1100-4500); Lymphocytes Percent Auto 39.7 % (25-40); Mean Corpuscular Hemoglobin 29.7 PG (26-34); Mean Corpuscular Volume 87.2 fL (80-100); Monocytes Absolute Auto 700 /uL (0-900); Monocytes Percent Auto 7.5 % (3-14); Neutrophils Absolute Auto 3900 /uL (1500-7000); Neutrophils Percent Auto 43.2 % (50-75); Platelet Count 270 X10^3/uL (150-400); Red Blood Cell Count 4.49 X10^6/uL (4.0-5.2); Red Cell Distribution Width 14.1 % (11.6-14.8)
[2023-09-11] MEDS: dilTIAZem 5 MG/ML SDV 20 MG IV (22:05)
[2023-09-11 22:08] LABS: Alanine Aminotransferase 23 IU/L (<35); Albumin 4.5 g/dL (3.5-5.0); Albumin Globulin Ratio 1.3 (1.0-2.8); Alkaline Phosphatase 70 U/L (38-126); BUN Creatinine Ratio 14.9 (6-22); Bilirubin Total 0.7 mg/dL (0.2-1.3); Blood Urea Nitrogen 13 mg/dL (7-17); Calcium 9.6 mg/dL (8.4-10.2); Carbon Dioxide 26 mmol/L (22-32); Chloride 103 mmol/L (98-107); Estimated Glomerular Filt Rate > 60 mL/min (>60); Globulin 3.4 g/dL (1.7-4.1); Glucose 127 mg/dL (80-110); Potassium 3.4 mmol/L (3.4-5.1); Sodium 138 mmol/L (137-145); Total Protein 7.9 g/dL (6.3-8.2)
[2023-09-11 22:20] LABS: Troponin I < 0.012 ng/mL (0.01-0.034)
--- NOTE | 2023-09-11 23:01 | PC.NURSE ---
Provider made aware of patient heart rate and rhythm after 20mg IV of diltiazem. Holding diltiazem drip at this time.
--- NOTE | 2023-09-11 23:16 | ED.ARRPALP ---
HPI - Arrhythmia/Palpitations General Chief Complaint: Arrhythmia/Palpitations Stated Complaint: Afib/RVR Time Seen by Provider: 09/11/23 21:45 Source: EMS Mode of arrival: EMS History of Present Illness HPI narrative: 73-year-old female with a history of paroxysmal atrial fibrillation presenting with atrial fibrillation. Began a couple of hours ago she is as she was pushing a heavy cart at [facility]. She has a little bit of shortness of breath no chest pain not feeling near-syncope. She has not anticoagulated on the advice of her roll reclaimer, has been on metoprolol 12.5 mg daily, this apparently caused a slow heart rate and so her roll reclaimer in [place] has tried a couple of other medications. She has presently not on anything for rate control but has a prescription for a new medication she thinks it as diltiazem. She was last here on the 21 of August, had paroxysmal atrial fibrillation was rate controlled with diltiazem and discharge to home. Related Data Home Medications Medication Instructions Recorded Confirmed GLUCOSAMINE/CHONDROITIN SULF A 1 cap PO QDAY ##0 04/15/16 01/15/21 levothyroxine 137 mcg tablet 137 mcg PO QDAY ##90 04/15/16 01/15/21 liothyronine 5 mcg tablet (Cytomel) 5 mcg PO BID #0 tabs 04/15/16 01/15/21 lutein 20 mg tablet 20 mg PO QDAY ##0 04/15/16 01/15/21 lysine 500 mg tablet 500 mg PO QDAY ##0 04/15/16 01/15/21 estradiol 1 applic vaginal 2XW 12/08/20 01/15/21 Previous Rx's Medication Instructions Recorded meclizine 25 mg tablet 25 mg PO TID PRN dizziness #10 tabs 10/21/21 promethazine 25 mg rectal 25 mg [place] Q6H PRN nausea and 10/21/21 suppository vomiting #12 ea ondansetron 4 mg disintegrating 4 mg PO Q8H PRN nausea and 11/20/21 tablet vomiting #10 tabs meclizine 25 mg tablet 25 mg PO BID-TID PRN dizziness #14 10/24/22 tabs pantoprazole 40 mg tablet,delayed 40 mg PO DAILY #30 tabs 10/24/22 release (Protonix) diltiazem HCl 30 mg tablet 30 mg PO TID #30 tabs 09/12/23 Allergies Allergy/AdvReac Type Severity Reaction Status Date / Time ampicillin [AMPICILLIN] Allergy Unknown Verified 07/12/23 09:05 hydrocodone [HYDROCODONE] Allergy Unknown Verified 07/12/23 09:05 morphine [MORPHINE] Allergy Unknown Verified 07/12/23 09:05 Penicillins [PENICILLINS] Allergy Unknown Verified 07/12/23 09:05 Sulfa (Sulfonamide Allergy Unknown Verified 07/12/23 09:05 Antibiotics) [SULFA (SULFONAMIDE ANTIBIOTICS)] amoxicillin Allergy Verified 08/21/23 21:51 ondansetron AdvReac Mild Vomiting Verified 07/12/23 09:05 Patient History Medical History Diverticulitis Hypothyroidism Surgical History History of uterine suspension procedure Social History household members: none Smoking Status: Never smoker alcohol intake: current Smoking Status: Never smoker alcohol intake frequency: a few times a month Substance Use Type: does not use Exam Initial Vital Signs Initial Vital Signs: Vital Signs Temperature 98.4 F 09/11/23 21:44 Pulse Rate 118 H 09/11/23 21:44 Respiratory Rate 22 09/11/23 21:44 Pulse Oximetry 99 09/11/23 21:44 Oxygen Delivery Method Room Air 09/11/23 21:44 Const General: No acute distress Neck Neck: supple and No JVD Resp Effort & Inspection: normal respiratory effort Auscultation: clear to auscultation bilaterally Cardio Other: Irregularly irregular and tachycardic no murmur rub or gallop. GI Palpation: soft and No tender Auscultation: normal bowel sounds Skin General: no rashes or lesions noted, dry skin and warm Neuro General: patient alert, patient oriented x3 and moves all extremities Course Course Course Narrative: At 11:15 a.m., she has on a diltiazem drip at 5 milligrams/hour. Her present rate is in the 80s and she remains in atrial fibrillation. Discussed trying to transition her to an oral medication, patient states she thinks that her roll reclaimer was planning on having her start diltiazem. Since she seems to be tolerating it at present, although obviously I will not know what her heart rate is when she converted to sinus, I am going to start her on a low dose of oral diltiazem and watch her. Orders Ordered: ED Orders 09/11/23 21:43 Complete Blood Count AUTO DIFF Stat Comprehensive Metabolic Panel Stat Trop I [Troponin I] Stat 09/11/23 21:54 XR chest 1V Stat EKG-12 Lead Stat Discontinued Medications Diltiazem HCl (Diltiazem 5 Mg/Ml Sdv) 20 mg IV NOW ONE Stop: 09/11/23 21:55 Last Admin: 09/11/23 22:05 Dose: 20 mg Documented By: FRANK Diltiazem HCl (Diltiazem 30 Mg Tablet) 30 mg PO NOW ONE Stop: 09/11/23 23:18 Last Admin: 09/11/23 23:27 Dose: 30 mg Documented By: FRANK DILTIAZEM (Diltiazem 125 Mg/125 Ml-D5w) 125 mg in 125 mls @ 5 mls/hr IV TITRATE HELEN; Protocol Last Admin: 09/12/23 00:21 Dose: Not Given Documented By: FRANK Vital Signs Vital signs: Vital Signs - 8 hr 09/11/23 21:44 09/11/23 21:48 09/11/23 21:52 Temperature 98.4 F Pulse Rate 118 H 108 H 116 H Respiratory Rate 22 14 20 Blood Pressure 157/88 H Pulse Oximetry 99 98 98 Oxygen Delivery Method Room Air 09/11/23 21:52 09/11/23 21:53 09/11/23 22:00 Temperature Pulse Rate 101 H Respiratory Rate 25 H Blood Pressure 157/88 H 157/88 H Pulse Oximetry 96 Oxygen Delivery Method 09/11/23 22:00 09/11/23 22:05 09/11/23 22:09 Temperature Pulse Rate 108 H 101 H Respiratory Rate 20 Blood Pressure 122/73 122/73 Pulse Oximetry 96 Oxygen Delivery Method 09/11/23 22:09 09/11/23 22:12 09/11/23 22:12 Temperature Pulse Rate 87 Respiratory Rate 22 Blood Pressure 133/67 124/62 Pulse Oximetry 95 Oxygen Delivery Method 09/11/23 22:15 09/11/23 22:15 09/11/23 22:18 Temperature Pulse Rate 82 Respiratory Rate 22 Blood Pressure 122/65 126/58 L Pulse Oximetry 97 Oxygen Delivery Method 09/11/23 22:18 09/11/23 22:21 09/11/23 22:21 Temperature Pulse Rate 74 76 Respiratory Rate 16 18 Blood Pressure 117/70 Pulse Oximetry 96 94 Oxygen Delivery Method Room Air 09/11/23 22:24 09/11/23 22:24 09/11/23 22:27 Temperature Pulse Rate 80 77 Respiratory Rate 13 16 Blood Pressure 114/71 Pulse Oximetry 97 96 Oxygen Delivery Method Room Air 09/11/23 22:27 09/11/23 22:30 09/11/23 22:30 Temperature Pulse Rate 88 Respiratory Rate 20 Blood Pressure 119/65 116/68 Pulse Oximetry 96 Oxygen Delivery Method 09/11/23 22:33 09/11/23 22:33 09/11/23 22:43 Temperature Pulse Rate 89 93 H Respiratory Rate 21 19 Blood Pressure 116/77 Pulse Oximetry 96 97 Oxygen Delivery Method 09/11/23 22:43 09/11/23 22:45 09/11/23 22:45 Temperature Pulse Rate 101 H Respiratory Rate 21 Blood Pressure 133/83 131/60 Pulse Oximetry 96 Oxygen Delivery Method 09/11/23 22:48 09/11/23 22:48 09/11/23 22:51 Temperature Pulse Rate 100 H 91 H Respiratory Rate 20 18 Blood Pressure 126/65 Pulse Oximetry 96 96 Oxygen Delivery Method 09/11/23 22:51 09/11/23 22:54 09/11/23 22:54 Temperature Pulse Rate 90 82 Respiratory Rate 22 Blood Pressure 120/70 122/61 Pulse Oximetry 96 Oxygen Delivery Method Room Air 09/11/23 22:58 09/11/23 22:58 09/11/23 23:00 Temperature Pulse Rate 84 85 Respiratory Rate 19 18 Blood Pressure 113/70 Pulse Oximetry 96 96 Oxygen Delivery Method Room Air 09/11/23 23:00 09/11/23 23:09 09/11/23 23:09 Temperature Pulse Rate 87 Respiratory Rate 21 Blood Pressure 109/62 121/64 Pulse Oximetry 97 Oxygen Delivery Method 09/11/23 23:12 09/11/23 23:12 09/11/23 23:16 Temperature Pulse Rate 84 86 Respiratory Rate 21 20 Blood Pressure 108/58 L Pulse Oximetry 95 97 Oxygen Delivery Method 09/11/23 23:16 09/11/23 23:18 09/11/23 23:18 Temperature Pulse Rate 83 Respiratory Rate 17 Blood Pressure 117/88 110/63 Pulse Oximetry 97 Oxygen Delivery Method 09/11/23 23:22 09/11/23 23:22 09/11/23 23:24 Temperature Pulse Rate 85 93 H Respiratory Rate 19 20 Blood Pressure 130/62 Pulse Oximetry 97 97 Oxygen Delivery Method 09/11/23 23:24 09/11/23 23:27 09/11/23 23:27 Temperature Pulse Rate 92 H 84 Respiratory Rate 21 Blood Pressure 122/63 122/63 Pulse Oximetry 95 Oxygen Delivery Method 09/11/23 23:27 09/11/23 23:30 09/11/23 23:30 Temperature Pulse Rate 85 Respiratory Rate 18 Blood Pressure 112/76 127/86 Pulse Oximetry 97 Oxygen Delivery Method Room Air 09/11/23 23:40 09/11/23 23:40 09/11/23 23:50 Temperature Pulse Rate 81 82 Respiratory Rate 18 20 Blood Pressure 104/72 Pulse Oximetry 96 96 Oxygen Delivery Method 09/11/23 23:50 09/12/23 00:00 09/12/23 00:00 Temperature Pulse Rate 106 H Respiratory Rate 23 Blood Pressure 105/57 L 118/63 Pulse Oximetry 97 Oxygen Delivery Method Room Air 09/12/23 00:11 09/12/23 00:11 09/12/23 00:21 Temperature Pulse Rate 106 H Respiratory Rate 20 Blood Pressure 122/63 109/65 Pulse Oximetry 96 Oxygen Delivery Method 09/12/23 00:21 09/12/23 00:30 Temperature Pulse Rate 89 85 Respiratory Rate 17 18 Blood Pressure 105/62 Pulse Oximetry 96 96 Oxygen Delivery Method MDM - Arrhythmia/Palpitations Medical Records Medical records narrative: Reviewed her most recent emergency department visit here 21 of August Lab Data Lab results narrative: CBC with diff and CMP are unremarkable, troponin is normal urinalysis is unremarkable 09/11/23 21:43 09/11/23 21:43 Labs: Lab Results 09/11/23 Range/Units 21:43 WBC 9.0 (4.5-11.0) X10^3/uL RBC 4.49 (4.0-5.2) X10^6/uL Hgb 13.3 (12.0-16.0) g/dL Hct 39.2 (36-46) % MCV 87.2 (80-100) fL MCH 29.7 (26-34) PG MCHC 34.0 (30-36) % RDW 14.1 (11.6-14.8) % Plt Count 270 (150-400) X10^3/uL Neut % (Auto) 43.2 L (50-75) % Lymph % (Auto) 39.7 (25-40) % [place] % (Auto) 7.5 (3-14) % Eos % (Auto) 8.6 H (2-4) % Baso % (Auto) 1.0 (0-2) % Neut # (Auto) 3900 (6278-5669) /uL Lymph # (Auto) 3600 (6588-5712) /uL [place] # (Auto) 700 (0-900) /uL Eos # (Auto) 800 H (0-450) /uL Baso # (Auto) 100 (0-100) /uL Sodium 138 (137-145) mmol/L Potassium 3.4 (3.4-5.1) mmol/L Chloride 103 (98-107) mmol/L Carbon Dioxide 26 (22-32) mmol/L BUN 13 (7-17) mg/dL Creatinine 0.87 (0.52-1.04) mg/dL Estimated GFR > 60 (>60) mL/min BUN/Creatinine Ratio 14.9 (6-22) Glucose 127 H (80-110) mg/dL Calcium 9.6 (8.4-10.2) mg/dL Total Bilirubin 0.7 (0.2-1.3) mg/dL AST TNP ALT 23 (<35) IU/L Alkaline Phosphatase 70 (38-126) U/L Troponin I < 0.012 (0.01-0.034) ng/mL Total Protein 7.9 (6.3-8.2) g/dL Albumin 4.5 (3.5-5.0) g/dL Globulin 3.4 (1.7-4.1) g/dL Albumin/Globulin Ratio 1.3 (1.0-2.8) Urine Dip Bedside Urine Glucose Negative Bedside Urine Bilirubin - Negative Bedside Urine Ketone - Negative Urine Specific [place] 1.010 Bedside Urine Occult Blood - Negative Bedside Urine pH 6.5 Bedside Urine Protein - Negative Bedside Urine Urobilinogen - Negative Bedside Urine Nitrite - Negative Bedside Urine Leukocytes - Negative Esterase Imaging Data Chest x-ray: My Impression: Independent review portable chest x-ray showed no acute disease Radiologist's Impresson: Radiologist report indicated no acute cardiopulmonary disease ECG Data Interpretation: EKG shows atrial fibrillation at 1:[address] segment changes. MDM Narrative Medical decision making narrative: 73-year-old female with a history of paroxysmal atrial fibrillation presenting with paroxysmal atrial fibrillation. Rate control isn't problematic for her because she has a very low rate when she converts to sinus rhythm on a regular rate control medication. She was controlled in the emergency department with IV Cardizem, rate control is adequate on a drip at 5 milligrams/hour. She was transitioned to 30 mg p.o. with adequate rate control. Patient did not wish to be anticoagulated she did not wish to be cardioverted. She is established with Dr. Leigh in [place]. I recommended she contact him tomorrow for follow-up. In the meantime started her on Cardizem 30 t.i.d. for rate control while she is in atrial fibrillation. Given her otherwise stable appearance and established history of paroxysmal atrial fibrillation I considered but do not suspect hyperthyroidism pulmonary embolism or infection. Discharge Plan Departure Patient Disposition: Home Clinical Impression: Atrial fibrillation Instructions: DI for Atrial Fibrillation Activity Restrictions/Additional Instructions: We saw you tonight with atrial fibrillation. It looks like diltiazem as controlling her rate, therefore I have sent a prescription for that medication to your pharmacy. I have sent a prescription for the smallest dose, take this 3 times a day, hold it if you are heart rate is less than 50. Please contact your roll reclaimer as soon as possible for further instructions. Continue your other home medications. Return to the emergency department if you are having chest pain increasing shortness of breath fainting or having rapid atrial fibrillation. Prescriptions: New diltiazem HCl 30 mg tablet 30 mg PO TID Qty: 30 0RF No Action lysine 500 MG tablet 500 mg PO QDAY Qty: 0 lutein 20 MG tablet 20 mg PO QDAY Qty: 0 GLUCOSAMINE/CHONDROITIN SULF A 1 cap PO QDAY Qty: 0 liothyronine [Cytomel] 5 MCG tablet 5 mcg PO BID Qty: 0 levothyroxine 137 MCG tablet 137 mcg PO QDAY Qty: 90 estradiol cream 1 applic vaginal 2XW Rx Instructions: twice weekly compounded cream meclizine 25 mg tablet 25 mg PO TID PRN (Reason: dizziness) Qty: 10 0RF promethazine 25 mg suppository 25 mg [place] Q6H PRN (Reason: nausea and vomiting) Qty: 12 0RF ondansetron 4 mg tablet,disintegrating 4 mg PO Q8H PRN (Reason: nausea and vomiting) Qty: 10 0RF meclizine 25 mg tablet 25 mg PO BID-TID PRN (Reason: dizziness) Qty: 14 0RF pantoprazole [Protonix] 40 mg tablet,delayed release (DR/EC) 40 mg PO DAILY Qty: 30 0RF Referrals: Kade Fernandez ARNP [Primary Care Provider] - Stand Alone Forms: Patient Portal/API
[2023-09-11] MEDS: dilTIAZem 30 MG TABLET PO (23:27)
[2023-09-12] VITALS: BP 118/63; PULSE 106; RESP 23; O2SAT 97
[2023-09-12 00:11] VITALS: BP 122/63; PULSE 106; RESP 20; O2SAT 96
[2023-09-12 00:21] VITALS: BP 109/65; PULSE 89; RESP 17; O2SAT 96
[2023-09-12 00:30] VITALS: BP 105/62; PULSE 85; RESP 18; O2SAT 96
[2023-09-14 16:14] LABS: HEMOLYSIS 16 (0-50)
[2023-09-14 16:16] LABS: Aspartate Aminotransferase 38 IU/L (14-36)
== END 2023-09-12 00:38 | disposition home or self-care (01) ==
PROVIDERS: Emergency Provider Emergency Medicine; PCP Registered Nurse
DX: I48.91 Unspecified atrial fibrillation (principal)
CPT/HCPCS: 36415; 71045; 80053; 81003; 84484; 85025; 93005; 96374; 99284

== ENCOUNTER → 2023-11-21 13:19 | Outpatient (CLI) | payer MEDICARE, OTHER, SELFPAY ==
[2022-08-01 15:12] VITALS: BMI 31.0
--- NOTE | 2023-11-21 | DI.RAD.S_ITS ---
PROCEDURE: XR HIP W PEL IF DONE RT 2V INDICATIONS: HIP PAIN TECHNIQUE: AP pelvis with lateral view(s) of the right hip(s). COMPARISON: None. FINDINGS: Bones: No fractures or dislocations. [id number] bilateral hip joint osteoarthritic changes are seen. No evidence of avascular necrosis of femoral. Pelvic ring appears intact. No suspicious bony lesions. Soft tissues: The visualized bowel gas pattern is normal. No suspicious soft tissue calcifications. IMPRESSION: [id number] bilateral hip joint osteoarthritis. No pelvic or hip fracture. No evidence of avascular necrosis. Dictated by: Fritz Interiano M.D. on 11/21/2023 at 16:07 Approved by: Fritz Interiano M.D. on 11/21/2023 at 16:07
== END ==
PROVIDERS: PCP Registered Nurse; Referring Provider Registered Nurse; Visit Provider Registered Nurse
DX: M16.0 Bilateral primary osteoarthritis of hip (principal); M25.551 Pain in right hip
CPT/HCPCS: 73502

== ENCOUNTER 2023-12-17 02:12 | Emergency (ER) | payer MEDICARE, OTHER, SELFPAY ==
[2022-08-01 15:12] VITALS: BMI 31.0
[2023-12-17] VITALS (11 sets, daily range): BP systolic 110–149; BP diastolic 60–84; PULSE 82–95; RESP 15–22; TEMP 36.8; O2SAT 94–98; BMI 30.7
[2023-12-17 02:28] LABS: Add Manual Diff / Slide Review NO; Basophils Absolute Auto 100 /uL (0-100); Basophils Percent Auto 0.7 % (0-2); Eosinophils Absolute Auto 200 /uL (0-450); Eosinophils Percent Auto 3.1 % (2-4); Hematocrit 37.7 % (36-46); Hemoglobin 12.7 g/dL (12.0-16.0); Lymphocytes Absolute Auto 1700 /uL (1100-4500); Lymphocytes Percent Auto 22.8 % (25-40); Mean Corpuscular HGB Conc 33.6 % (30-36); Mean Corpuscular Hemoglobin 29.8 PG (26-34); Mean Corpuscular Volume 88.7 fL (80-100); Monocytes Absolute Auto 400 /uL (0-900); Monocytes Percent Auto 5.6 % (3-14); Neutrophils Absolute Auto 4900 /uL (1500-7000); Neutrophils Percent Auto 67.8 % (50-75); Platelet Count 265 X10^3/uL (150-400); Red Blood Cell Count 4.25 X10^6/uL (4.0-5.2); Red Cell Distribution Width 14.1 % (11.6-14.8); White Blood Cell Count 7.3 X10^3/uL (4.5-11.0)
--- NOTE | 2023-12-17 02:34 | ED_ITS ---
HPI - Arrhythmia/Palpitations General Chief Complaint: Arrhythmia/Palpitations Stated Complaint: sick, dizzy, afib Time Seen by Provider: 12/17/23 02:16 Source: patient and EMS Mode of arrival: EMS History of Present Illness HPI narrative: 73-year-old female with history of atrial fibrillation, not anticoagulated, on diltiazem presents by EMS from home for atrial fibrillation as well as dizziness and nausea. Patient is somewhat a poor historian and it is difficult for her to characterize her symptoms. Patient states that she has felt ?dizzy? all day, worse when lying down. This evening the patient's dizziness became worse and she had episodes of nausea with vomiting, which she states triggered her AFib. EMS states that patient was in the 130s and 140s on their arrival. They administered 50 mg of IV diltiazem with improvement in patient's rate, as well as 4 mg of IV Zofran. On arrival patient is still states she feels somewhat dizzy, but has difficulty characterizing what ?dizzy? means. She denies a sensation of vertigo. Patient states she felt similar on previous visits and they gave her ?a bunch of pills?, but she does not remember the name of these medications. Denies chest pain, shortness of breath, numbness, weakness, vision changes, abdominal pain Related Data Home Medications Medication Instructions Recorded Confirmed GLUCOSAMINE/CHONDROITIN SULF A 1 cap PO QDAY ##0 04/15/16 01/15/21 levothyroxine 137 mcg tablet 137 mcg PO QDAY ##90 04/15/16 01/15/21 liothyronine 5 mcg tablet (Cytomel) 5 mcg PO BID #0 tabs 04/15/16 01/15/21 lutein 20 mg tablet 20 mg PO QDAY ##0 04/15/16 01/15/21 lysine 500 mg tablet 500 mg PO QDAY ##0 04/15/16 01/15/21 estradiol 1 applic vaginal 2XW 12/08/20 01/15/21 Previous Rx's Medication Instructions Recorded meclizine 25 mg tablet 25 mg PO TID PRN dizziness #10 tabs 10/21/21 promethazine 25 mg rectal 25 mg [place] Q6H PRN nausea and 10/21/21 suppository vomiting #12 ea ondansetron 4 mg disintegrating 4 mg PO Q8H PRN nausea and 11/20/21 tablet vomiting #10 tabs meclizine 25 mg tablet 25 mg PO BID-TID PRN dizziness #14 10/24/22 tabs pantoprazole 40 mg tablet,delayed 40 mg PO DAILY #30 tabs 10/24/22 release (Protonix) diltiazem HCl 30 mg tablet 30 mg PO TID #30 tabs 09/12/23 meclizine 25 mg tablet 25 mg PO BID PRN dizziness #30 tabs 12/17/23 Allergies Allergy/AdvReac Type Severity Reaction Status Date / Time ampicillin [AMPICILLIN] Allergy Unknown Verified 07/12/23 09:05 hydrocodone [HYDROCODONE] Allergy Unknown Verified 07/12/23 09:05 morphine [MORPHINE] Allergy Unknown Verified 07/12/23 09:05 Penicillins [PENICILLINS] Allergy Unknown Verified 07/12/23 09:05 Sulfa (Sulfonamide Allergy Unknown Verified 07/12/23 09:05 Antibiotics) [SULFA (SULFONAMIDE ANTIBIOTICS)] amoxicillin Allergy Verified 08/21/23 21:51 ondansetron AdvReac Mild Vomiting Verified 07/12/23 09:05 Review of Systems Review of Systems Narrative: Negative except as noted above Patient History Medical History Diverticulitis Hypothyroidism Surgical History History of uterine suspension procedure Social History household members: none Smoking Status: Never smoker alcohol intake: current Smoking Status: Never smoker alcohol intake frequency: a few times a month Substance Use Type: does not use Exam Initial Vital Signs Initial Vital Signs: Vital Signs Temperature 98.2 F 12/17/23 02:24 Pulse Rate 88 12/17/23 02:24 Respiratory Rate 18 12/17/23 02:24 Blood Pressure 149/84 H 12/17/23 02:24 Pulse Oximetry 98 12/17/23 02:24 Oxygen Delivery Method Room Air 12/17/23 02:24 Const: Awake, alert, no acute distress, nontoxic appearing Cardiac: Irregularly irregular rhythm RESP: unlabored, clear bilaterally, no wheezing GI: Soft, nontender, nondistended, no rebound, no guarding MSK: Atraumatic, full range of motion, pulses equal Skin: Warm, Dry, intact, no rashes Neuro: AO x3, CN II-XII grossly intact, moves all extremities Course Orders Ordered: ED Orders 12/17/23 02:20 CBC Auto Diff [Complete Blood Count AUTO DIFF] Stat CMP [Comprehensive Metabolic Panel] Stat Lipase Stat 12/17/23 02:22 UA Complete [Urinalysis and Microscopic] Stat EKG-12 Lead Stat Discontinued Medications Diazepam (Diazepam 10 Mg/2 Ml Syringe) 2 mg IV NOW ONE Stop: 12/17/23 03:58 Last Admin: 12/17/23 04:16 Dose: Not Given Documented By: TAYLOR Diltiazem HCl (Diltiazem Cd 120 Mg Cap) 120 mg PO NOW ONE Stop: 12/17/23 04:14 Last Admin: 12/17/23 04:22 Dose: 120 mg Documented By: TAYLOR Meclizine HCl (Meclizine Hcl 12.5 Mg Tablet) 50 mg PO NOW ONE Stop: 12/17/23 02:51 Last Admin: 12/17/23 03:04 Dose: 50 mg Documented By: NANNETTE Metoclopramide HCl (Metoclopramide 10 Mg/2 Ml Inj) 10 mg IV NOW ONE Stop: 12/17/23 02:34 Last Admin: 12/17/23 02:42 Dose: 10 mg Documented By: NANNETTE Vital Signs Vital signs: Vital Signs - 8 hr 12/17/23 02:24 12/17/23 02:28 12/17/23 02:30 Temperature 98.2 F Pulse Rate 88 90 89 Respiratory Rate 18 22 21 Blood Pressure 149/84 H Pulse Oximetry 98 98 97 Oxygen Delivery Method Room Air 12/17/23 02:46 12/17/23 02:46 12/17/23 03:00 Temperature Pulse Rate 86 92 H Respiratory Rate 18 20 Blood Pressure 126/75 Pulse Oximetry 97 94 Oxygen Delivery Method Room Air 12/17/23 03:00 12/17/23 03:30 12/17/23 03:30 Temperature Pulse Rate 94 H Respiratory Rate 15 Blood Pressure 120/69 112/60 Pulse Oximetry 96 Oxygen Delivery Method Room Air 12/17/23 04:00 12/17/23 04:00 12/17/23 04:30 Temperature Pulse Rate 91 H 95 H Respiratory Rate 17 17 Blood Pressure 130/71 Pulse Oximetry 96 95 Oxygen Delivery Method Room Air 12/17/23 04:30 12/17/23 05:00 12/17/23 05:00 Temperature Pulse Rate 87 Respiratory Rate 15 Blood Pressure 122/71 110/66 Pulse Oximetry 95 Oxygen Delivery Method MDM - Arrhythmia/Palpitations Lab Data 12/17/23 02:20 12/17/23 02:20 Labs: Lab Results 12/17/23 Range/Units 02:20 WBC 7.3 (4.5-11.0) X10^3/uL RBC 4.25 (4.0-5.2) X10^6/uL Hgb 12.7 (12.0-16.0) g/dL Hct 37.7 (36-46) % MCV 88.7 (80-100) fL MCH 29.8 (26-34) PG MCHC 33.6 (30-36) % RDW 14.1 (11.6-14.8) % Plt Count 265 (150-400) X10^3/uL Neut % (Auto) 67.8 (50-75) % Lymph % (Auto) 22.8 L (25-40) % [place] % (Auto) 5.6 (3-14) % Eos % (Auto) 3.1 (2-4) % Baso % (Auto) 0.7 (0-2) % Neut # (Auto) 4900 (5159-3370) /uL Lymph # (Auto) 1700 (3896-2535) /uL [place] # (Auto) 400 (0-900) /uL Eos # (Auto) 200 (0-450) /uL Baso # (Auto) 100 (0-100) /uL Sodium 138 (137-145) mmol/L Potassium 3.6 (3.4-5.1) mmol/L Chloride 107 (98-107) mmol/L Carbon Dioxide 24 (22-32) mmol/L BUN 11 (7-17) mg/dL Creatinine 0.67 (0.52-1.04) mg/dL Estimated GFR > 60 (>60) mL/min BUN/Creatinine Ratio 16.4 (6-22) Glucose 132 H (80-110) mg/dL Calcium 9.0 (8.4-10.2) mg/dL Total Bilirubin 0.6 (0.2-1.3) mg/dL AST 29 (14-36) IU/L ALT 21 (<35) IU/L Alkaline Phosphatase 77 (38-126) U/L Total Protein 7.3 (6.3-8.2) g/dL Albumin 4.2 (3.5-5.0) g/dL Globulin 3.1 (1.7-4.1) g/dL Albumin/Globulin Ratio 1.4 (1.0-2.8) Lipase 114 (23-300) U/L [facility] Narrative Medical decision making narrative: Well-appearing patient with nausea, vomiting, dizziness and atrial fibrillation. Patient unable to fully articulate the nature of her symptoms, but says that she was here around 's day with similar symptoms and the pills that she took then helped her. Record review shows that patient was given meclizine for dizziness. Patient has been rate controlled with a heart rate of 80s to 90s since arrival to the emergency department. Patient received IV fluids, meclizine, antiemetics. She states she no longer feels dizzy in his able to tolerate p.o. in his ambulatory throughout the emergency department. Heart rate remains sustained around 90 beats per minute, in atrial fibrillation, and patient states she feels her a fib is under control presently. Patient states that her symptoms are improved and she is ready to go home. Patient's usual dose of diltiazem given in the emergency department since she was unable to take her pill last night due to vomiting. Meclizine sent to pharmacy of choice. Cardiology follow up advised. Patient allowed to rest in the emergency department until taxi service available at 6:00 a.m.. Discharge Plan Departure Patient Disposition: Home Clinical Impression: Atrial fibrillation, Dizziness Instructions: Vertigo, DI for Atrial Fibrillation Activity Restrictions/Additional Instructions: Meclizine has been sent to the pharmacy for your vertigo. You may take this if you feel dizzy. Continue to take your usual atrial fibrillation medications. Make sure that you follow up with your formal waiter/waitress. Prescriptions: New meclizine 25 mg tablet 25 mg PO BID PRN (Reason: dizziness) Qty: 30 0RF No Action lysine 500 MG tablet 500 mg PO QDAY Qty: 0 lutein 20 MG tablet 20 mg PO QDAY Qty: 0 GLUCOSAMINE/CHONDROITIN SULF A 1 cap PO QDAY Qty: 0 liothyronine [Cytomel] 5 MCG tablet 5 mcg PO BID Qty: 0 levothyroxine 137 MCG tablet 137 mcg PO QDAY Qty: 90 estradiol cream 1 applic vaginal 2XW Rx Instructions: twice weekly compounded cream meclizine 25 mg tablet 25 mg PO TID PRN (Reason: dizziness) Qty: 10 0RF promethazine 25 mg suppository 25 mg [place] Q6H PRN (Reason: nausea and vomiting) Qty: 12 0RF ondansetron 4 mg tablet,disintegrating 4 mg PO Q8H PRN (Reason: nausea and vomiting) Qty: 10 0RF meclizine 25 mg tablet 25 mg PO BID-TID PRN (Reason: dizziness) Qty: 14 0RF pantoprazole [Protonix] 40 mg tablet,delayed release (DR/EC) 40 mg PO DAILY Qty: 30 0RF diltiazem HCl 30 mg tablet 30 mg PO TID Qty: 30 0RF Referrals: Kade Fernandez ARNP [Primary Care Provider] - Stand Alone Forms: Patient Portal/API
[2023-12-17 02:40] LABS: Alanine Aminotransferase 21 IU/L (<35); Albumin 4.2 g/dL (3.5-5.0); Albumin Globulin Ratio 1.4 (1.0-2.8); Alkaline Phosphatase 77 U/L (38-126); Aspartate Aminotransferase 29 IU/L (14-36); BUN Creatinine Ratio 16.4 (6-22); Bilirubin Total 0.6 mg/dL (0.2-1.3); Blood Urea Nitrogen 11 mg/dL (7-17); Carbon Dioxide 24 mmol/L (22-32); Chloride 107 mmol/L (98-107); Estimated Glomerular Filt Rate > 60 mL/min (>60); Globulin 3.1 g/dL (1.7-4.1); Glucose 132 mg/dL (80-110); HEMOLYSIS < 15 (0-50); Lipase 114 U/L (23-300); Potassium 3.6 mmol/L (3.4-5.1); Sodium 138 mmol/L (137-145); Total Protein 7.3 g/dL (6.3-8.2)
[2023-12-17] MEDS: METOCLOPRAMIDE 10 MG/2 ML INJ IV (02:42)
[2023-12-17] MEDS: MECLIZINE HCL 12.5 MG TABLET 50 MG PO (03:04)
[2023-12-17] MEDS: dilTIAZem CD 120 MG CAP PO (04:22)
== END 2023-12-17 06:19 | disposition home or self-care (01) ==
PROVIDERS: Emergency Provider Emergency Medicine; PCP Registered Nurse
DX: I48.91 Unspecified atrial fibrillation (principal); R42 Dizziness and giddiness
CPT/HCPCS: 80053; 83690; 85025; 93010; 96374; 99284; J2765

== ENCOUNTER → 2024-06-24 14:49 | Outpatient (CLI) | payer MEDICARE, OTHER, SELFPAY ==
[2022-08-01 15:12] VITALS: BMI 31.0
--- NOTE | 2024-06-24 14:50 | DI.MG.S_ITS ---
BILATERAL DIGITAL SCREENING MAMMOGRAM 3D/2D WITH CAD: 06/24/2024 CLINICAL: Routine screening. Comparison is made to exams dated: 05/17/2023 mammogram and 06/04/2023 mammogram - [facility]. There are scattered areas of fibroglandular density (category b / 25%-50% glandular tissue). Current study was also evaluated with a Computer Aided Detection (CAD) system. No significant masses, calcifications, or other findings are seen in either breast. There has been no significant interval change. IMPRESSION: NEGATIVE There is no mammographic evidence of malignancy. A 1 year screening mammogram is recommended. Based on the Tyrer Cuzick model (a risk assessment model) the patient's lifetime risk is 3.0% and her 10 year risk is 2.2%. According to the ACR, ACS, and NCCN guidelines, an annual breast MRI exam along with mammogram is recommended if the patient's lifetime risk is 20% or greater. This exam was interpreted at Station ID: [id number]. NOTE: For mammograms, a report in lay terms will be sent to the patient. Approximately 15% of breast malignancies will not be visualized mammographically. In the management of a palpable breast mass, a negative mammogram must not discourage biopsy of a clinically suspicious lesion. Electronically Signed By: Demarco shah/kaylan:06/24/2024 17:09:04 letter sent: Normal Exam ACR BI-RADS Category 1: Negative
== END ==
LOC: MAMMO 14:49
PROVIDERS: PCP Registered Nurse; Referring Provider Registered Nurse; Visit Provider Registered Nurse
DX: Z12.31 Encounter for screening mammogram for malignant neoplasm of breast (principal)
CPT/HCPCS: 77063; 77067

== ENCOUNTER 2024-10-21 14:06 | Emergency (ER) | payer MEDICARE, BC, SELFPAY ==
[2022-08-01 15:12] VITALS: BMI 31.0
[2024-10-21] VITALS (19 sets, daily range): BP systolic 105–157; BP diastolic 55–84; PULSE 73–167; RESP 17–28; TEMP 37.3; O2SAT 92–96; BMI 30.7
--- NOTE | 2024-10-21 14:35 | DI.RAD.S_ITS ---
PROCEDURE: XR CHEST 1V INDICATIONS: chest pain TECHNIQUE: One view of the chest was acquired. COMPARISON: [facility], CR, XR CHEST 1V, 09/11/2023, 21:58. FINDINGS: Surgical changes and devices: None. Lungs and pleura: Lungs are clear. No pleural effusions or pneumothorax. Mediastinum: Mediastinal contours appear normal. Heart size is normal. Bones and chest wall: No suspicious bony lesions. Overlying soft tissues appear unremarkable. IMPRESSION: No acute cardiopulmonary pathology. Dictated by: Fritz Interiano M.D. on 10/21/2024 at 15:48 Approved by: Fritz Interiano M.D. on 10/21/2024 at 15:48
--- NOTE | 2024-10-21 14:35 | EKG_ITS ---
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
[2024-10-21] MEDS: dilTIAZem 25 MG/5 ML SDV 20 MG IV (14:58)
[2024-10-21] MEDS: ASPIRIN 81 MG CHEW TAB 324 MG PO (14:59)
[2024-10-21 15:03] LABS: Add Manual Diff / Slide Review NO; Basophils Absolute Auto 100 /uL (0-100); Basophils Percent Auto 0.8 % (0-2); Eosinophils Absolute Auto 400 /uL (0-450); Eosinophils Percent Auto 5.9 % (2-4); Hematocrit 40.4 % (36-46); Hemoglobin 13.5 g/dL (12.0-16.0); Lymphocytes Absolute Auto 500 /uL (1100-4500); Lymphocytes Percent Auto 8.5 % (25-40); Mean Corpuscular HGB Conc 33.4 % (30-36); Mean Corpuscular Hemoglobin 29.9 PG (26-34); Mean Corpuscular Volume 89.7 fL (80-100); Monocytes Absolute Auto 500 /uL (0-900); Monocytes Percent Auto 7.5 % (3-14); Neutrophils Absolute Auto 4700 /uL (1500-7000); Neutrophils Percent Auto 77.3 % (50-75); Platelet Count 265 X10^3/uL (150-400); Red Blood Cell Count 4.51 X10^6/uL (4.0-5.2); Red Cell Distribution Width 13.7 % (11.6-14.8); White Blood Cell Count 6.1 X10^3/uL (4.5-11.0)
[2024-10-21 15:10] LABS: Prothrombin Time 11.7 SECONDS (9.4-12.5)
[2024-10-21 15:12] LABS: PTT Partial Thromboplastin Tim 34 SECONDS (25.1-36.5)
[2024-10-21 15:14] LABS: Alanine Aminotransferase 33 IU/L (<35); Albumin 4.7 g/dL (3.5-5.0); Albumin Globulin Ratio 1.4 (1.0-2.8); Alkaline Phosphatase 85 U/L (38-126); Aspartate Aminotransferase 35 IU/L (14-36); BUN Creatinine Ratio 13.9 (6-22); Bilirubin Total 0.5 mg/dL (0.2-1.3); Blood Urea Nitrogen 11 mg/dL (7-17); Calcium 9.5 mg/dL (8.4-10.2); Carbon Dioxide 20 mmol/L (22-32); Chloride 106 mmol/L (98-107); Creatine Kinase 98 U/L (30-135); Estimated Glomerular Filt Rate > 60 mL/min (>60); Globulin 3.3 g/dL (1.7-4.1); Glucose 119 mg/dL (80-110); HEMOLYSIS < 15 (0-50); Lipase 57 U/L (23-300); Magnesium 1.8 mg/dL (1.6-2.3); Potassium 3.6 mmol/L (3.4-5.1); Sodium 137 mmol/L (137-145)
[2024-10-21 15:26] LABS: NT-proBNP (BNP-Adult 18+) 88 pg/mL (<125); Troponin I 0.013 ng/mL (0.01-0.034)
[2024-10-21] MEDS: dilTIAZem 125 MG in SODIUM CHLORIDE 0.9% 100 ML IV (16:15)
--- NOTE | 2024-10-21 17:31 | EKG_ITS ---
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
[2024-10-21 18:18] LABS: Influenza A - CEPHEID Flu A POSITIVE (NEGATIVE); Influenza B - CEPHEID Flu B NEGATIVE (NEGATIVE); Respiratory Syncytial Virus Negative (Negative)
[2024-10-21 18:19] LABS: COVID-19 CEPHEID 4-PLEX PCR Negative (Negative)
--- NOTE | 2024-10-21 18:21 | ED_ITS ---
HPI - Arrhythmia/Palpitations General Chief Complaint: Arrhythmia/Palpitations Stated Complaint: Afib, high heart rate Time Seen by Provider: 10/21/24 17:08 Source: patient Mode of arrival: Family Vehicle History of Present Illness HPI narrative: Patient is a 74-year-old female history of atrial fibrillation on diltiazem and aspirin presenting today with fever nausea vomiting and now atrial fibrillation. She reports that she has had fever of 101 she started vomiting unable to keep anything down which he thinks set off her AFib. She had initial heart rate in the 150s she actually self converted into sinus rhythm. She reports no significant abdominal pain she has mild diarrhea but does not report significant output. She does report lots of coughing at night. She just does not want to go back into atrial fibrillation. Related Data Home Medications Medication Instructions Recorded Confirmed GLUCOSAMINE/CHONDROITIN SULF A 1 cap PO QDAY ##0 04/15/16 01/15/21 levothyroxine 137 mcg tablet 137 mcg PO QDAY ##90 04/15/16 01/15/21 liothyronine 5 mcg tablet (Cytomel) 5 mcg PO BID #0 tabs 04/15/16 01/15/21 lutein 20 mg tablet 20 mg PO QDAY ##0 04/15/16 01/15/21 lysine 500 mg tablet 500 mg PO QDAY ##0 04/15/16 01/15/21 estradiol 1 applic vaginal 2XW 12/08/20 01/15/21 Previous Rx's Medication Instructions Recorded meclizine 25 mg tablet 25 mg PO TID PRN dizziness #10 tabs 10/21/21 promethazine 25 mg rectal 25 mg AK Q6H PRN nausea and 10/21/21 suppository vomiting #12 ea ondansetron 4 mg disintegrating 4 mg PO Q8H PRN nausea and 11/20/21 tablet vomiting #10 tabs meclizine 25 mg tablet 25 mg PO BID-TID PRN dizziness #14 10/24/22 tabs pantoprazole 40 mg tablet,delayed 40 mg PO DAILY #30 tabs 10/24/22 release (Protonix) diltiazem HCl 30 mg tablet 30 mg PO TID #30 tabs 09/12/23 meclizine 25 mg tablet 25 mg PO BID PRN dizziness #30 tabs 12/17/23 meclizine 25 mg tablet 25 mg PO BID PRN dizziness #30 tabs 12/17/23 promethazine 25 mg rectal 25 mg AK Q6H PRN nausea and 10/21/24 suppository vomiting #12 ea promethazine 25 mg tablet 25 mg PO Q6H PRN nausea and 10/21/24 vomiting #10 tabs Allergies Allergy/AdvReac Type Severity Reaction Status Date / Time ampicillin [AMPICILLIN] Allergy Unknown Verified 10/21/24 14:54 hydrocodone [HYDROCODONE] Allergy Unknown Verified 10/21/24 14:54 morphine [MORPHINE] Allergy Unknown Verified 10/21/24 14:54 Penicillins [PENICILLINS] Allergy Unknown Verified 10/21/24 14:54 Sulfa (Sulfonamide Allergy Unknown Verified 10/21/24 14:54 Antibiotics) [SULFA (SULFONAMIDE ANTIBIOTICS)] amoxicillin Allergy Verified 10/21/24 14:54 ondansetron AdvReac Mild Vomiting Verified 10/21/24 14:54 Patient History Medical History Diverticulitis Hypothyroidism Surgical History History of uterine suspension procedure Social History household members: none Smoking Status: Never smoker alcohol intake: current Smoking Status: Never smoker alcohol intake frequency: a few times a month Exam Initial Vital Signs Initial Vital Signs: Vital Signs Temperature 99.1 F 10/21/24 14:30 Pulse Rate 167 H 10/21/24 14:30 Respiratory Rate 22 10/21/24 14:30 Blood Pressure 135/79 10/21/24 14:30 Pulse Oximetry 96 10/21/24 14:30 Oxygen Delivery Method Room Air 10/21/24 14:30 GENERAL: Alert well-appearing 74-year-old female and in no acute distress. HEENT: Head atraumatic,EOMI, pupils reactive, face symmetric, moist mucous membranes CARDIOVASCULAR: Regular rate and rhythm without murmurs, rubs or gallops. RESPIRATORY: Breath sounds equal bilaterally, no wheezes rales or rhonchi. ABDOMEN: Soft, nontender. Normoactive bowel sounds all 4 quadrants. No guarding or rebound. EXTREMITIES: Normal range of motion, no clubbing or edema. Neurovascularly intact NEUROLOGICAL: Alert and oriented x4.Normal gait and speech. SKIN: Warm, dry, no laceration, no petechiae, no rashes or lesions. Course Orders Ordered: Discontinued Medications Aspirin (Aspirin 81 Mg Chew Tab) 324 mg PO NOW ONE Stop: 10/21/24 14:36 Last Admin: 10/21/24 14:59 Dose: 324 mg Documented By: FRANK Diltiazem HCl (Diltiazem 25 Mg/5 Ml Sdv) 20 mg IV NOW ONE Stop: 10/21/24 14:54 Last Admin: 10/21/24 14:58 Dose: 20 mg Documented By: FRANK Diltiazem HCl 125 mg/ Sodium (Chloride) 125 mls @ 5 mls/hr IV TITRATE HELEN; Protocol Last Titration: 10/21/24 19:00 Dose: Infused Documented By: Titration: 10/21/24 18:36 Dose: 0 mg/hr, 0 mls/hr Documented By: Admin: 10/21/24 16:15 Dose: 5 mg/hr, 5 mls/hr Documented By: FRANK Vital Signs Vital signs: Vital Signs - 8 hr 10/21/24 14:30 10/21/24 14:36 10/21/24 14:58 Temperature 99.1 F Pulse Rate 167 H 107 H 143 H Respiratory Rate 22 Blood Pressure 135/79 135/79 135/79 Pulse Oximetry 96 96 Oxygen Delivery Method Room Air 10/21/24 15:00 10/21/24 15:15 10/21/24 15:30 Temperature Pulse Rate 147 H 123 H 129 H Respiratory Rate 28 H 22 23 Blood Pressure 157/71 H 129/56 L 137/66 Pulse Oximetry 94 94 92 Oxygen Delivery Method Room Air Room Air 10/21/24 16:15 Temperature Pulse Rate 130 H Respiratory Rate Blood Pressure 122/68 Pulse Oximetry Oxygen Delivery Method MDM - Arrhythmia/Palpitations Lab Data 10/21/24 14:45 10/21/24 14:45 Labs: Lab Results 10/21/24 10/21/24 Range/Units 14:45 17:33 WBC 6.1 (4.5-11.0) X10^3/uL RBC 4.51 (4.0-5.2) X10^6/uL Hgb 13.5 (12.0-16.0) g/dL Hct 40.4 (36-46) % MCV 89.7 (80-100) fL MCH 29.9 (26-34) PG MCHC 33.4 (30-36) % RDW 13.7 (11.6-14.8) % Plt Count 265 (150-400) X10^3/uL Neut % (Auto) 77.3 H (50-75) % Lymph % (Auto) 8.5 L (25-40) % [place]ern % (Auto) 7.5 (3-14) % Eos % (Auto) 5.9 H (2-4) % Baso % (Auto) 0.8 (0-2) % Neut # (Auto) 4700 (5952-9604) /uL Lymph # (Auto) 500 L (1121-1094) /uL Kern # (Auto) 500 (0-900) /uL Eos # (Auto) 400 (0-450) /uL Baso # (Auto) 100 (0-100) /uL PT 11.7 (9.4-12.5) SECONDS INR 1.0 (0.9-1.3) APTT 34 (25.1-36.5) SECONDS Sodium 137 (137-145) mmol/L Potassium 3.6 (3.4-5.1) mmol/L Chloride 106 (98-107) mmol/L Carbon Dioxide 20 L (22-32) mmol/L BUN 11 (7-17) mg/dL Creatinine 0.79 (0.52-1.04) mg/dL Estimated GFR > 60 (>60) mL/min BUN/Creatinine Ratio 13.9 (6-22) Glucose 119 H (80-110) mg/dL Calcium 9.5 (8.4-10.2) mg/dL Magnesium 1.8 (1.6-2.3) mg/dL Total Bilirubin 0.5 (0.2-1.3) mg/dL AST 35 (14-36) IU/L ALT 33 (<35) IU/L Alkaline Phosphatase 85 (38-126) U/L Total Creatine Kinase 98 (30-135) U/L Troponin I 0.013 (0.01-0.034) ng/mL NT-Pro-B Natriuret Pep 88 (<125) pg/mL Total Protein 8.0 (6.3-8.2) g/dL Albumin 4.7 (3.5-5.0) g/dL Globulin 3.3 (1.7-4.1) g/dL Albumin/Globulin Ratio 1.4 (1.0-2.8) Lipase 57 (23-300) U/L SARS-CoV-2 (PCR) Negative (Negative) Influenza A (RT-PCR) Flu a positive H (NEGATIVE) Influenza B (RT-PCR) Flu b negative (NEGATIVE) RSV (PCR) Negative (Negative) Imaging Data Chest x-ray: Radiologist's Impresson: PROCEDURE: XR CHEST 1V INDICATIONS: chest pain TECHNIQUE: One view of the chest was acquired. COMPARISON: [facility], , XR CHEST 1V, 09/11/2023, 21:58. FINDINGS: Surgical changes and devices: None. Lungs and pleura: Lungs are clear. No pleural effusions or pneumothorax. Mediastinum: Mediastinal contours appear normal. Heart size is normal. Bones and chest wall: No suspicious bony lesions. Overlying soft tissues appear unremarkable. IMPRESSION: No acute cardiopulmonary pathology. Dictated by: Fritz Interiano M.D. on 10/21/2024 at 15:48 ECG Data Attestation: I personally reviewed and interpreted this ECG as follows: Prior ECG tracings: available for review Interpretation: EKG 1. Atrial fibrillation rate 154 no ischemic changes EKG 2. Sinus rhythm rate 70 AK interval 216 QRS 92 QTC 424 changes [facility] Narrative Medical decision making narrative: [facility] CC: Fever nausea vomiting chest pain Complicating co-morbidities: Atrial fibrillation on aspirin and diltiazem Medical records reviewed: Previous ED visits Differential considered: Sepsis, viral, influenza, arrhythmia acute coronary syndrome Exam documented above, pertinent findings include: Alert nontoxic 74-year-old female regular rate and rhythm no peripheral edema abdomen soft nontender Lab Test results independently reviewed as above. Pertinent findings: Positive influenza a Independently reviewed EKG as above Initially EKGs AFib with RVR rate 150 Repeat EKGs sinus rhythm without ischemia Imaging studies independently reviewed: No acute cardiopulmonary process Consultations: none Treatments: Diltiazem Re-evaluations: Patient was given diltiazem bolus and then drip she self converted into a sinus rhythm. Discussion: Patient has a history of atrial fibrillation presenting today with fever body aches nausea vomiting and AFib with RVR. She was positive for influenza A. She has no complication no leukocytosis or pneumonia on x-ray. She self converted after diltiazem. She was needing more anti nausea medication at home Phenergan suppository works well for her. She was tolerating fluids. Discharge Plan Departure Patient Disposition: Home Clinical Impression: Influenza A, Atrial fibrillation with rapid ventricular response Instructions: DI for Influenza -- Adult Activity Restrictions/Additional Instructions: *You have been diagnosed with influenza a and atrial fibrillation *What to do: At this time increase fluids as tolerated. Expect to have fever body aches sore throat a cough ongoing for the next 5-7 days Increase fluids with electrolyte fluid of choice may increase diet as tolerated *Continue to take medications as directed Phenergan suppository as directed if needed for nausea or vomiting Tylenol Motrin as needed for fever and pain *Follow up with your primary care provider in 2-3 days or call [phone] *Return to ER if you should have persistent vomiting not tolerating fluids elevated heart rate worsening shortness of breath or any new, worsening or concerning symptoms Prescriptions: New promethazine 25 mg tablet 25 mg PO Q6H PRN (Reason: nausea and vomiting) Qty: 10 0RF promethazine 25 mg suppository 25 mg AK Q6H PRN (Reason: nausea and vomiting) Qty: 12 0RF No Action lysine 500 MG tablet 500 mg PO QDAY Qty: 0 lutein 20 MG tablet 20 mg PO QDAY Qty: 0 GLUCOSAMINE/CHONDROITIN SULF A 1 cap PO QDAY Qty: 0 liothyronine [Cytomel] 5 MCG tablet 5 mcg PO BID Qty: 0 levothyroxine 137 MCG tablet 137 mcg PO QDAY Qty: 90 estradiol cream 1 applic vaginal 2XW Rx Instructions: twice weekly compounded cream meclizine 25 mg tablet 25 mg PO TID PRN (Reason: dizziness) Qty: 10 0RF promethazine 25 mg suppository 25 mg AK Q6H PRN (Reason: nausea and vomiting) Qty: 12 0RF ondansetron 4 mg tablet,disintegrating 4 mg PO Q8H PRN (Reason: nausea and vomiting) Qty: 10 0RF meclizine 25 mg tablet 25 mg PO BID-TID PRN (Reason: dizziness) Qty: 14 0RF pantoprazole [Protonix] 40 mg tablet,delayed release (DR/EC) 40 mg PO DAILY Qty: 30 0RF diltiazem HCl 30 mg tablet 30 mg PO TID Qty: 30 0RF meclizine 25 mg tablet 25 mg PO BID PRN (Reason: dizziness) Qty: 30 0RF meclizine 25 mg tablet 25 mg PO BID PRN (Reason: dizziness) Qty: 30 0RF Referrals: Kade Fernandez ARNP [Primary Care Provider] - Stand Alone Forms: Patient Portal/API/Survey
== END 2024-10-21 19:17 | disposition home or self-care (01) ==
PROVIDERS: Emergency Medicine; Emergency Provider Emergency Medicine; PCP Registered Nurse
DX: I48.91 Unspecified atrial fibrillation (principal); J10.1 Influenza due to other identified influenza virus with other respiratory manifestations; R11.2 Nausea with vomiting, unspecified; Z79.82 Long term (current) use of aspirin; Z88.6 Allergy status to analgesic agent; Z88.0 Allergy status to penicillin; Z88.2 Allergy status to sulfonamides
CPT/HCPCS: 0241U; 36415; 71045; 80053; 82550; 83690; 83735; 83880; 84484; 85025; 85610; 85730; 93005; 93010; 96365; 96366; 96376; 99284; 99285

== ENCOUNTER 2024-10-25 12:47 | Emergency (ER) | payer MEDICARE, BC, SELFPAY ==
[2022-08-01 15:12] VITALS: BMI 31.0
[2024-10-25] VITALS (16 sets, daily range): BP systolic 101–131; BP diastolic 53–74; PULSE 56–63; RESP 17–25; TEMP 36.6; O2SAT 94–98; BMI 33.2
--- NOTE | 2024-10-25 13:01 | DI.RAD.S_ITS ---
PROCEDURE: XR CHEST 1V INDICATIONS: chest pain TECHNIQUE: One view of the chest was acquired. COMPARISON: [facility], CR, XR CHEST 1V, 10/21/2024, 14:36. FINDINGS: Surgical changes and devices: None. Lungs and pleura: Lungs are clear. No pleural effusions or pneumothorax. Mediastinum: Mediastinal contours appear normal. Heart size is normal. Bones and chest wall: No suspicious bony lesions. Age-appropriate bony degenerative changes are seen. Overlying soft tissues appear unremarkable. IMPRESSION: No acute cardiopulmonary abnormality is seen. Dictated by: Alejo Rodríguez M.D. on 10/25/2024 at 12:25 Approved by: Alejo Rodríguez M.D. on 10/25/2024 at 12:26
--- NOTE | 2024-10-25 13:01 | EKG_ITS ---
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
[2024-10-25 13:31] LABS: Add Manual Diff / Slide Review NO; Basophils Absolute Auto 0 /uL (0-100); Basophils Percent Auto 0.8 % (0-2); Eosinophils Absolute Auto 100 /uL (0-450); Hematocrit 40.5 % (36-46); Hemoglobin 13.4 g/dL (12.0-16.0); Lymphocytes Absolute Auto 1100 /uL (1100-4500); Lymphocytes Percent Auto 35.8 % (25-40); Mean Corpuscular HGB Conc 33.2 % (30-36); Mean Corpuscular Hemoglobin 29.6 PG (26-34); Mean Corpuscular Volume 89.2 fL (80-100); Monocytes Absolute Auto 300 /uL (0-900); Monocytes Percent Auto 9.5 % (3-14); Neutrophils Absolute Auto 1500 /uL (1500-7000); Neutrophils Percent Auto 50.9 % (50-75); Platelet Count 168 X10^3/uL (150-400); Red Blood Cell Count 4.54 X10^6/uL (4.0-5.2); Red Cell Distribution Width 13.8 % (11.6-14.8)
[2024-10-25 13:36] LABS: Prothrombin Time 11.3 SECONDS (9.4-12.5)
[2024-10-25 13:38] LABS: D Dimer 798 ng/ml (<500)
[2024-10-25 13:39] LABS: Alanine Aminotransferase 31 IU/L (<35); Albumin 4.1 g/dL (3.5-5.0); Albumin Globulin Ratio 1.4 (1.0-2.8); Alkaline Phosphatase 70 U/L (38-126); Aspartate Aminotransferase 47 IU/L (14-36); BUN Creatinine Ratio 17.4 (6-22); Bilirubin Total 0.4 mg/dL (0.2-1.3); Blood Urea Nitrogen 15 mg/dL (7-17); Calcium 8.5 mg/dL (8.4-10.2); Carbon Dioxide 22 mmol/L (22-32); Chloride 105 mmol/L (98-107); Creatine Kinase 148 U/L (30-135); Estimated Glomerular Filt Rate > 60 mL/min (>60); Glucose 105 mg/dL (80-110); HEMOLYSIS < 15 (0-50); Lactate (Lactic Acid) 1.1 mmol/L (0.7-2.1); Lipase 83 U/L (23-300); PTT Partial Thromboplastin Tim 33 SECONDS (25.1-36.5); Potassium 3.6 mmol/L (3.4-5.1); Sodium 136 mmol/L (137-145); Total Protein 7.1 g/dL (6.3-8.2)
[2024-10-25 13:51] LABS: NT-proBNP (BNP-Adult 18+) 71 pg/mL (<125); Troponin I 0.015 ng/mL (0.01-0.034)
--- NOTE | 2024-10-25 15:05 | ED.SOB ---
HPI - SOB/Dyspnea General Chief Complaint: Shortness of Breath/Dyspnea Stated Complaint: Weakness, Coughing Up Blood Time Seen by Provider: 10/25/24 13:00 Source: patient Mode of arrival: Ambulatory Limitations: no limitations History of Present Illness HPI Narrative: Patient is a 74-year-old female history of atrial fibrillation on diltiazem anticoagulated with aspirin presenting to day with hemoptysis. She was seen evaluated here in October 21 at that time she was in AFib with RVR and diagnosed with influenza a. She continues to have fever and body aches. She now reports that she has hemoptysis every time she coughs. It does seem to be blood streaked. Now she reports it has not as bright red. But she still just not feeling great. She is definitely short of breath when she walks. She gets fatigued very easily. No real chest pain. No abdominal pain. She is trying to stay hydrated but her appetite is down Related Data Home Medications Medication Instructions Recorded Confirmed GLUCOSAMINE/CHONDROITIN SULF A 1 cap PO QDAY ##0 04/15/16 01/15/21 levothyroxine 137 mcg tablet 137 mcg PO QDAY ##90 04/15/16 01/15/21 liothyronine 5 mcg tablet (Cytomel) 5 mcg PO BID #0 tabs 04/15/16 01/15/21 lutein 20 mg tablet 20 mg PO QDAY ##0 04/15/16 01/15/21 lysine 500 mg tablet 500 mg PO QDAY ##0 04/15/16 01/15/21 estradiol 1 applic vaginal 2XW 12/08/20 01/15/21 Previous Rx's Medication Instructions Recorded meclizine 25 mg tablet 25 mg PO TID PRN dizziness #10 tabs 10/21/21 promethazine 25 mg rectal 25 mg SC Q6H PRN nausea and 10/21/21 suppository vomiting #12 ea ondansetron 4 mg disintegrating 4 mg PO Q8H PRN nausea and 11/20/21 tablet vomiting #10 tabs meclizine 25 mg tablet 25 mg PO BID-TID PRN dizziness #14 10/24/22 tabs pantoprazole 40 mg tablet,delayed 40 mg PO DAILY #30 tabs 10/24/22 release (Protonix) diltiazem HCl 30 mg tablet 30 mg PO TID #30 tabs 09/12/23 meclizine 25 mg tablet 25 mg PO BID PRN dizziness #30 tabs 12/17/23 meclizine 25 mg tablet 25 mg PO BID PRN dizziness #30 tabs 12/17/23 promethazine 25 mg rectal 25 mg SC Q6H PRN nausea and 10/21/24 suppository vomiting #12 ea promethazine 25 mg tablet 25 mg PO Q6H PRN nausea and 10/21/24 vomiting #10 tabs Allergies Allergy/AdvReac Type Severity Reaction Status Date / Time ampicillin [AMPICILLIN] Allergy Unknown Verified 10/21/24 14:54 hydrocodone [HYDROCODONE] Allergy Unknown Verified 10/21/24 14:54 morphine [MORPHINE] Allergy Unknown Verified 10/21/24 14:54 Penicillins [PENICILLINS] Allergy Unknown Verified 10/21/24 14:54 Sulfa (Sulfonamide Allergy Unknown Verified 10/21/24 14:54 Antibiotics) [SULFA (SULFONAMIDE ANTIBIOTICS)] amoxicillin Allergy Verified 10/21/24 14:54 ondansetron AdvReac Mild Vomiting Verified 10/21/24 14:54 Patient History Medical History Diverticulitis Hypothyroidism Surgical History History of uterine suspension procedure Social History household members: none Smoking Status: Never smoker alcohol intake: current Smoking Status: Never smoker alcohol intake frequency: a few times a month Exam Initial Vital Signs Initial Vital Signs: Vital Signs Pulse Rate 63 10/25/24 12:56 Pulse Oximetry 96 10/25/24 12:56 GENERAL: Alert 74-year-old female reading a book and in no acute distress. HEENT: Head atraumatic,EOMI, pupils reactive, face symmetric, moist mucous membranes CARDIOVASCULAR: Regular rate and rhythm without murmurs, rubs or gallops. RESPIRATORY: Breath sounds equal bilaterally, no wheezes rales or rhonchi. ABDOMEN: Soft, nontender. Normoactive bowel sounds all 4 quadrants. No guarding or rebound. EXTREMITIES: Normal range of motion, no clubbing or edema. Neurovascularly intact NEUROLOGICAL: Alert and oriented x4.Normal gait and speech. Cranial nerves II through XII grossly intact. SKIN: Warm, dry, no laceration, no petechiae, no rashes or lesions. Course Orders Ordered: ED Orders 10/25/24 13:01 XR chest 1V Stat EKG-12 Lead Stat 10/25/24 13:20 Complete Blood Count AUTO DIFF Stat Comprehensive Metabolic Panel Stat D Dimer Stat Lactate (Lactic Acid) Stat Lipase Stat NT-proBNP (BNP-Adult 18+) Stat PTT Partial Thromboplastin Franco Stat Prothrombin Time INR Stat Troponin & CK Cardiac Panel Stat 10/25/24 15:11 CT angio chest PE protocol Stat Vital Signs Vital signs: Vital Signs - 8 hr 10/25/24 12:56 10/25/24 13:00 10/25/24 13:01 Temperature 97.9 F Pulse Rate 63 58 L 62 Respiratory Rate 18 Blood Pressure 131/58 L Pulse Oximetry 96 94 96 Oxygen Delivery Method Room Air 10/25/24 13:01 10/25/24 13:01 10/25/24 13:19 Temperature Pulse Rate 59 L Respiratory Rate Blood Pressure 106/58 L 131/58 L Pulse Oximetry 95 Oxygen Delivery Method 10/25/24 13:19 10/25/24 13:30 10/25/24 13:30 Temperature Pulse Rate 62 60 Respiratory Rate 21 23 Blood Pressure 102/62 Pulse Oximetry 95 96 Oxygen Delivery Method 10/25/24 13:45 10/25/24 13:45 10/25/24 14:00 Temperature Pulse Rate 57 L 59 L Respiratory Rate 18 17 Blood Pressure 102/60 Pulse Oximetry 94 95 Oxygen Delivery Method 10/25/24 14:00 10/25/24 14:15 10/25/24 14:15 Temperature Pulse Rate 58 L Respiratory Rate 22 Blood Pressure 102/59 L 104/59 L Pulse Oximetry 96 Oxygen Delivery Method 10/25/24 14:30 10/25/24 14:30 10/25/24 14:45 Temperature Pulse Rate 56 L Respiratory Rate 21 Blood Pressure 101/57 L 109/57 L Pulse Oximetry 96 Oxygen Delivery Method 10/25/24 14:45 10/25/24 15:00 10/25/24 15:00 Temperature Pulse Rate 60 56 L Respiratory Rate 20 18 Blood Pressure 109/63 Pulse Oximetry 96 97 Oxygen Delivery Method 10/25/24 15:15 10/25/24 15:15 10/25/24 15:30 Temperature Pulse Rate 61 60 Respiratory Rate 25 H Blood Pressure 126/74 Pulse Oximetry 97 Oxygen Delivery Method 10/25/24 15:32 10/25/24 15:32 10/25/24 15:46 Temperature Pulse Rate 60 Respiratory Rate 18 Blood Pressure 129/61 114/55 L Pulse Oximetry 98 Oxygen Delivery Method 10/25/24 15:46 10/25/24 16:00 10/25/24 16:00 Temperature Pulse Rate 63 62 Respiratory Rate 24 23 Blood Pressure 107/53 L Pulse Oximetry 97 97 Oxygen Delivery Method MDM - SOB/Dyspnea Lab Data 10/25/24 13:20 10/25/24 13:20 Labs: Lab Results 10/25/24 Range/Units 13:20 WBC 3.0 L (4.5-11.0) X10^3/uL RBC 4.54 (4.0-5.2) X10^6/uL Hgb 13.4 (12.0-16.0) g/dL Hct 40.5 (36-46) % MCV 89.2 (80-100) fL MCH 29.6 (26-34) PG MCHC 33.2 (30-36) % RDW 13.8 (11.6-14.8) % Plt Count 168 (150-400) X10^3/uL Neut % (Auto) 50.9 (50-75) % Lymph % (Auto) 35.8 (25-40) % Williams % (Auto) 9.5 (3-14) % Eos % (Auto) 3.0 (2-4) % Baso % (Auto) 0.8 (0-2) % Neut # (Auto) 1500 (4126-2075) /uL Lymph # (Auto) 1100 (3051-2935) /uL Williams # (Auto) 300 (0-900) /uL Eos # (Auto) 100 (0-450) /uL Baso # (Auto) 0 (0-100) /uL PT 11.3 (9.4-12.5) SECONDS INR 1.0 (0.9-1.3) APTT 33 (25.1-36.5) SECONDS D-Dimer 798 H (<500) ng/ml Sodium 136 L (137-145) mmol/L Potassium 3.6 (3.4-5.1) mmol/L Chloride 105 (98-107) mmol/L Carbon Dioxide 22 (22-32) mmol/L BUN 15 (7-17) mg/dL Creatinine 0.86 (0.52-1.04) mg/dL Estimated GFR > 60 (>60) mL/min BUN/Creatinine Ratio 17.4 (6-22) Glucose 105 (80-110) mg/dL Lactate 1.1 (0.7-2.1) mmol/L Calcium 8.5 (8.4-10.2) mg/dL Total Bilirubin 0.4 (0.2-1.3) mg/dL AST 47 H (14-36) IU/L ALT 31 (<35) IU/L Alkaline Phosphatase 70 (38-126) U/L Total Creatine Kinase 148 H (30-135) U/L Troponin I 0.015 (0.01-0.034) ng/mL NT-Pro-B Natriuret Pep 71 (<125) pg/mL Total Protein 7.1 (6.3-8.2) g/dL Albumin 4.1 (3.5-5.0) g/dL Globulin 3.0 (1.7-4.1) g/dL Albumin/Globulin Ratio 1.4 (1.0-2.8) Lipase 83 (23-300) U/L Imaging Data Chest x-ray: Radiologist's Impression: PROCEDURE: XR CHEST 1V INDICATIONS: chest pain TECHNIQUE: One view of the chest was acquired. COMPARISON: [facility], , XR CHEST 1V, 10/21/2024, 14:36. FINDINGS: Surgical changes and devices: None. Lungs and pleura: Lungs are clear. No pleural effusions or pneumothorax. Mediastinum: Mediastinal contours appear normal. Heart size is normal. Bones and chest wall: No suspicious bony lesions. Age-appropriate bony degenerative changes are seen. Overlying soft tissues appear unremarkable. IMPRESSION: No acute cardiopulmonary abnormality is seen. Dictated by: Alejo Rodríguez M.D. on 10/25/2024 at 12:25 ECG Data Attestation: I personally reviewed and interpreted this ECG as follows: Prior ECG tracings: available for review Interpretation: Normal sinus rhythm rate 58 SC interval 196 QRS [address] changes similar to previous EKGs MDM Narrative Medical decision making narrative: MDM CC: Hemoptysis weakness Complicating co-morbidities: Atrial fibrillation current influenza a infection Medical records reviewed: Recent ED visit reviewed Differential considered: Pulmonary embolism congestive heart failure pneumonia Exam documented above, pertinent findings include: Alert 74-year-old female not appear acutely or toxic breath sounds are equal and clear bilaterally no peripheral edema not currently coughing up blood Lab Test results independently reviewed as above. Pertinent findings: CBC shows no leukocytosis WBC is actually 3.0 hemoglobin 13.4 hematocrit 40 CMP 136 potassium 3.6 chloride 105 carbon dioxide 22 BUN 15 creatinine 0.86 Troponin 0.15, BNP 71 Bilirubin liver enzymes within limits Independently reviewed EKG as above sinus rhythm no ischemia Imaging studies independently reviewed: Chest x-ray no pneumonia CT angio no pulmonary embolism or pneumonia Treatments: None Re-evaluations: Patient tolerating p.o. fluids Discussion: Patient is 74-year-old female presenting today with hemoptysis. She has known influenza. Does not report large quantities of blood but definitely has some blood streaking in her sputum. She has not hypoxic or toxic guarding. D-dimer is greater than 500 less than 1000 with hemoptysis we will need a CT angio to rule out pulmonary embolism. Blood work is otherwise overall reassuring she appears well nontoxic no evidence of severe sepsis CT is negative for pulmonary embolism and pneumonia. This is likely just irritation from coughing. She has no evidence myositis or rhabdomyolysis YEARS Algorithm for Pulmonary Embolism (PE) from [employer] on 10/25/2024 All calculations should be rechecked by clinician prior to use RESULT SUMMARY: PE not excluded YEARS algorithm recommends CTPA INPUTS: patient ?> 0 = No Clinical signs of DVT ?> 0 = No Hemoptysis ?> 1 = Yes PE most likely diagnosis ?> 0 = No D-dimer >=00 ng/mL FEU ?> 1 = Yes Discharge Plan Departure Patient Disposition: Home Clinical Impression: Hemoptysis Instructions: DI for Hemoptysis Activity Restrictions/Additional Instructions: *You have been diagnosed with hemoptysis *What to do: At this time you are having a very small amount of blood I think it is from airway irritation. You have no evidence of pneumonia. Please continue to drink fluids stay hydrated take Tylenol as needed. He will start feeling better soon *Continue to take medications as directed *Follow up with your primary care provider in 2-3 days or call [phone] *Return to ER if you should have coughing up handful of blood dizziness lightheadedness not tolerating fluids or any new, worsening or concerning symptoms Prescriptions: No Action lysine 500 MG tablet 500 mg PO QDAY Qty: 0 lutein 20 MG tablet 20 mg PO QDAY Qty: 0 GLUCOSAMINE/CHONDROITIN SULF A 1 cap PO QDAY Qty: 0 liothyronine [Cytomel] 5 MCG tablet 5 mcg PO BID Qty: 0 levothyroxine 137 MCG tablet 137 mcg PO QDAY Qty: 90 estradiol cream 1 applic vaginal 2XW Rx Instructions: twice weekly compounded cream meclizine 25 mg tablet 25 mg PO TID PRN (Reason: dizziness) Qty: 10 0RF promethazine 25 mg suppository 25 mg SC Q6H PRN (Reason: nausea and vomiting) Qty: 12 0RF ondansetron 4 mg tablet,disintegrating 4 mg PO Q8H PRN (Reason: nausea and vomiting) Qty: 10 0RF meclizine 25 mg tablet 25 mg PO BID-TID PRN (Reason: dizziness) Qty: 14 0RF pantoprazole [Protonix] 40 mg tablet,delayed release (DR/EC) 40 mg PO DAILY Qty: 30 0RF diltiazem HCl 30 mg tablet 30 mg PO TID Qty: 30 0RF promethazine 25 mg tablet 25 mg PO Q6H PRN (Reason: nausea and vomiting) Qty: 10 0RF promethazine 25 mg suppository 25 mg SC Q6H PRN (Reason: nausea and vomiting) Qty: 12 0RF meclizine 25 mg tablet 25 mg PO BID PRN (Reason: dizziness) Qty: 30 0RF meclizine 25 mg tablet 25 mg PO BID PRN (Reason: dizziness) Qty: 30 0RF Referrals: Kade Fernandez ARNP [Primary Care Provider] - Stand Alone Forms: Patient Portal/API/Survey
--- NOTE | 2024-10-25 15:11 | DI.CT.S_ITS ---
PROCEDURE: CT ANGIO CHEST PE PROTOCOL INDICATIONS: Hemoptysis short of breath TECHNIQUE: After the administration of intravenous contrast, 2 mm thick sections acquired from the pulmonary apices to the posterior costophrenic angles. 3-dimensional maximum intensity projection (MIP) coronal and sagittal reformats were then acquired through the thorax. For radiation dose reduction, the following was used: automated exposure control, adjustment of mA and/or kV according to patient size. COMPARISON: [facility], , MM SCREENING MAMMO BI, 06/24/2024, 15:03. [facility], CR, XR CHEST 1V, 10/25/2024, 13:06. FINDINGS: Image quality: There is streak artifact seen through the level of the shoulders. Pulmonary arteries: Pulmonary arteries are normal in size, and demonstrate no intraluminal filling defects to suggest central pulmonary embolism. Lower Neck: No enlarged lymph nodes. Thyroid: No thyroid nodules which require sonographic follow up, per consensus guidelines. Axillae: No enlarged lymph nodes. Chest Wall: There is a 16 mm right breast nodule seen, which has been previously evaluated and regarded to be benign. Bones: Accentuated thoracic kyphosis is seen. Age-appropriate bony degenerative changes are seen. Lungs and Pleura: No pneumothorax or pleural effusions. No consolidation or suspicious nodules. Heart: Heart size is normal. No pericardial effusion. Thoracic Vessels: No aortic aneurysm. Mediastinum and Sarika: No enlarged lymph nodes. Esophagus: No wall thickening. There is a small hiatal hernia. Upper Abdomen: Visualized upper abdomen solid organs and bowel loops appear normal. IMPRESSION: No pulmonary embolus. No acute cardiopulmonary process. Additional findings: Right breast nodule, regarded to be benign Small hiatal hernia Dictated by: Alejo Rodríguez M.D. on 10/25/2024 at 14:36 Approved by: Alejo Rodríguez M.D. on 10/25/2024 at 14:42
== END 2024-10-25 16:11 | disposition home or self-care (01) ==
PROVIDERS: Emergency Provider Emergency Medicine; PCP Registered Nurse
DX: R04.2 Hemoptysis (principal); R07.9 Chest pain, unspecified; R06.02 Shortness of breath; R00.1 Bradycardia, unspecified; I48.91 Unspecified atrial fibrillation; Z79.01 Long term (current) use of anticoagulants; Z79.82 Long term (current) use of aspirin; Z88.2 Allergy status to sulfonamides
CPT/HCPCS: 36415; 71045; 71275; 80053; 82550; 83605; 83690; 83880; 84484; 85025; 85379; 85610; 85730; 93005; 93010; 99283; Q9967

== ENCOUNTER → 2025-03-06 15:13 | Outpatient (CLI) | payer MEDICARE, BC, SELFPAY ==
[2022-08-01 15:12] VITALS: BMI 31.0
--- NOTE | 2025-03-06 15:16 | DI.RAD.S_ITS ---
PROCEDURE: XR DEXA AXIAL SKELETON INDICATIONS: Osteoporosis screening COMPARISON: None. FINDINGS: Lumbar Spine (L4 excluded): Bone mineral density 0.975 g/cm2, T score -0.4, baseline. Left Femoral Neck: Bone mineral density 0.831 g/cm2, T score -0.2. Left Hip: Bone mineral density 0.93 g/cm2, T score 0, baseline. Fracture Risk Calculation (when applicable): Not reported due to normal bone mineralization. (T score greater or equal to -1.0 to: NORMAL) (T score from -1.1 to -2.4: OSTEOPENIA) (T score less than or equal to -2.5: OSTEOPOROSIS) IMPRESSION: Normal bone mineralization. Follow-up guidelines as follows: Osteoporosis: Consider a repeat DEXA and Vertebral Fracture Assessment (VFA) exam in 2 years or sooner if medically necessary, to reassess this patient's status. Osteopenia: Consider a repeat DEXA in 2-3 years to reassess this patient's status, or if there is a new clinical indication. Normal: Consider a repeat DEXA in 5 years or sooner, or if there is a new clinical indication. All treatment decisions require clinical judgment and consideration of individual patient factors, including patient preferences, comorbidities, previous drug use, risk factors not captured in the FRAX model (e.g., frailty, falls, vitamin D deficiency, increased bone turnover, interval significant decline in bone density ) and possible under- or over-estimation of fracture risk by FRAX. In addition, the NOF Guide recommends that FDA-approved medical therapies be considered in postmenopausal women and men age >= 50 years with a: * Hip or vertebral (clinical or morphometric) fracture * T-score of <=-2.5 at the spine or hip * Ten-year fracture probability by FRAX of >= 3% for hip fracture or >=20% for major osteoporotic fracture. Dictated by: Juanito Serrano M.D. on 03/06/2025 at 16:35 Approved by: Juanito Serrano M.D. on 03/06/2025 at 16:36
== END ==
PROVIDERS: PCP Registered Nurse; Referring Provider Registered Nurse; Visit Provider Registered Nurse
DX: Z13.820 Encounter for screening for osteoporosis (principal); Z78.0 Asymptomatic menopausal state
CPT/HCPCS: 77080

== ENCOUNTER 2025-05-30 22:10 | Emergency (ER) | payer MEDICARE, BC, SELFPAY ==
[2022-08-01 15:12] VITALS: BMI 31.0
[2025-05-30 22:58] VITALS: BP 138/68; PULSE 78; RESP 18; TEMP 36.8; O2SAT 96; BMI 30.7
[2025-05-30 23:26] LABS: Add Manual Diff / Slide Review NO; Hematocrit 37.7 % (36-46); Hemoglobin 12.9 g/dL (12.0-16.0); Lymphocytes Absolute Auto 1700 /uL (1100-4500); Mean Corpuscular HGB Conc 34.2 % (30-36); Mean Corpuscular Hemoglobin 30.3 PG (26-34); Mean Corpuscular Volume 88.4 fL (80-100); Platelet Count 286 X10^3/uL (150-400)
[2025-05-30 23:35] LABS: Culture Indicated Urine Cult Not Indicated
[2025-05-30 23:36] LABS: Albumin 4.7 g/dL (3.5-5.0); Albumin Globulin Ratio 1.5 (1.0-2.8); Alkaline Phosphatase 75 U/L (38-126); Calcium 9.4 mg/dL (8.4-10.2); Carbon Dioxide 24 mmol/L (22-32); Chloride 104 mmol/L (98-107); Globulin 3.1 g/dL (1.7-4.1); Glucose 117 mg/dL (70-99); HEMOLYSIS < 15 (0-50); Lipase 53 U/L (23-300); Potassium 4.3 mmol/L (3.4-5.1); Sodium 137 mmol/L (137-145); Total Protein 7.8 g/dL (6.3-8.2)
[2025-05-30 23:37] LABS: Alanine Aminotransferase 25 IU/L (<35); Blood Urea Nitrogen 15 mg/dL (7-17); Estimated Glomerular Filt Rate > 60 mL/min (>60)
[2025-05-31] VITALS (9 sets, daily range): BP systolic 98–137; BP diastolic 54–80; PULSE 59–93; RESP 16–18; O2SAT 95–99
--- NOTE | 2025-05-31 02:55 | DI.CT.S_ITS ---
PROCEDURE: CT ABDOMEN PELVIS W CON INDICATIONS: abd pain TECHNIQUE: After the administration of intravenous contrast, axial sections acquired from the lung bases to the pubic symphysis. Coronal and sagittal reformats were performed. For radiation dose reduction, the following was used: automated exposure control, adjustment of mA and/or kV according to patient size. COMPARISON: [facility], CT, CT ABDOMEN PELVIS W CON, 11/19/2021, 22:32. FINDINGS: Lower Chest: No significant findings. ABDOMEN: Liver: Hepatic cyst Gallbladder: No radiopaque gallstones or wall thickening. Biliary ducts: No biliary dilation. Pancreas: No ductal dilation. Spleen: Size is within normal limits. Adrenal Glands: No adrenal nodules. Kidneys and Ureters: No hydronephrosis. No solid mass. No complex renal cystic lesion which requires follow up. Stomach and Bowel: Mid sigmoid wall thickening and pericolonic inflammatory change. No organized abscess or free air. No bowel obstruction. Peritoneum: No abnormal intraperitoneal fluid. No free air. Ventral Wall: No significant ventral hernia. Abdominal Nodes: No retroperitoneal or mesenteric adenopathy by size criteria. Vessels: Aorta and inferior vena cava are normal in size. PELVIS: Pelvic Organs: Unremarkable. Bladder: No bladder wall thickening, accounting for underdistention. Pelvic Nodes: No enlarged lymph nodes. Miscellaneous: No inguinal hernias are seen. Bones: No aggressive osseous abnormality. IMPRESSION: Acute diverticulitis. No abscess or bowel obstruction. No free air. Note: This final report is concordant with the preliminary after-hours interpretation provided by [employer] Approved by: Osman Beck M.D. on 05/31/2025 at 8:37
--- NOTE | 2025-05-31 04:38 | ED.ABDPAIN ---
HPI - Abdominal Pain General Chief Complaint: Abdominal Pain Stated Complaint: sent by pcp, abd pain, poss diverticulitis Time Seen by Provider: 05/30/25 22:52 Source: patient Mode of arrival: Ambulatory History of Present Illness HPI narrative: 75-year-old female with history of remote diverticulitis admission prior, complains of lower abdominal pain and cramping of similar sensation and quality for the last 3 days. No loose stools, black stools, red stools. No fevers or chills red she had concern about recurrence of diverticulitis and was considering taking a dose of levofloxacin when she read about cardiac toxicities and decided not to take it. History of allergies to ampicillin, morphine, penicillins, sulfa antibiotics. Denies painful or frequent urination. Denies cough shortness of breath chest pain. Related Data Home Medications ?Medication ?Instructions ?Recorded ?Confirmed GLUCOSAMINE/CHONDROITIN SULF A 1 cap PO QDAY ##0 04/15/16 01/15/21 levothyroxine 137 mcg tablet 137 mcg PO QDAY ##90 04/15/16 01/15/21 liothyronine 5 mcg tablet (Cytomel) 5 mcg PO BID #0 tabs 04/15/16 01/15/21 lutein 20 mg tablet 20 mg PO QDAY ##0 04/15/16 01/15/21 lysine 500 mg tablet 500 mg PO QDAY ##0 04/15/16 01/15/21 estradiol 1 applic vaginal 2XW 12/08/20 01/15/21 Previous Rx's ?Medication ?Instructions ?Recorded meclizine 25 mg tablet 25 mg PO TID PRN dizziness #10 tabs 10/21/21 promethazine 25 mg rectal 25 mg [place] Q6H PRN nausea and 10/21/21 suppository vomiting #12 ea ondansetron 4 mg disintegrating 4 mg PO Q8H PRN nausea and 11/20/21 tablet vomiting #10 tabs meclizine 25 mg tablet 25 mg PO BID-TID PRN dizziness #14 10/24/22 tabs pantoprazole 40 mg tablet,delayed 40 mg PO DAILY #30 tabs 10/24/22 release (Protonix) diltiazem HCl 30 mg tablet 30 mg PO TID #30 tabs 09/12/23 meclizine 25 mg tablet 25 mg PO BID PRN dizziness #30 tabs 12/17/23 meclizine 25 mg tablet 25 mg PO BID PRN dizziness #30 tabs 12/17/23 promethazine 25 mg rectal 25 mg [place] Q6H PRN nausea and 10/21/24 suppository vomiting #12 ea promethazine 25 mg tablet 25 mg PO Q6H PRN nausea and 10/21/24 vomiting #10 tabs ciprofloxacin HCl 500 mg tablet 500 mg PO BID #20 tabs 05/31/25 (Cipro) metronidazole 500 mg tablet 500 mg PO TID #30 tabs 05/31/25 Allergies Allergy/AdvReac Type Severity Reaction Status Date / Time ampicillin (AMPICILLIN) Allergy Unknown Verified 05/30/25 22:58 hydrocodone (HYDROCODONE) Allergy Unknown Verified 05/30/25 22:58 morphine (MORPHINE) Allergy Unknown Verified 05/30/25 22:58 Penicillins (PENICILLINS) Allergy Unknown Verified 05/30/25 22:58 Sulfa (Sulfonamide Allergy Unknown Verified 05/30/25 22:58 Antibiotics) (SULFA (SULFONAMIDE ANTIBIOTICS)) amoxicillin Allergy Verified 05/30/25 22:58 ondansetron AdvReac Mild Vomiting Verified 05/30/25 22:58 Patient History Medical History Diverticulitis Hypothyroidism Surgical History History of uterine suspension procedure Social History household members: none Smoking Status: Never smoker alcohol intake: current Smoking Status: Never smoker alcohol intake frequency: a few times a month Exam Narrative Exam Narrative: GENERAL: Well-developed patient, in mild distress. HEAD: Atraumatic. Normocephalic. EYES: Pupils equal round and reactive. Extraocular motions intact. No scleral icterus. No injection or drainage. ENT: Nose without bleeding, purulent drainage. Throat without erythema, tonsillar hypertrophy or exudate. Airway patent. NECK: Trachea midline. Non tender CARDIOVASCULAR: Regular rate and rhythm without murmurs, gallops, or rubs. RESPIRATORY: Clear to auscultation. Breath sounds equal bilaterally. No wheezes, rales, or rhonchi. GASTROINTESTINAL: Abdomen soft, nondistended. Mild tenderness bilateral lower quadrants. No distention. Nonrigid abdomen. Active bowel tones without rushes or tinkles. EXTREMITIES: No edema or joint tenderness. BACK: Nontender without deformity or crepitance. No flank tenderness. NEURO: AOx3. Motor functions grossly nonfocal. SKIN: No rash or erythema of visible areas Initial Vital Signs Initial Vital Signs: Vital Signs Temperature 98.2 F 05/30/25 22:58 Pulse Rate 78 05/30/25 22:58 Respiratory Rate 18 05/30/25 22:58 Blood Pressure 138/68 05/30/25 22:58 Pulse Oximetry 96 05/30/25 22:58 Oxygen Delivery Method Room Air 05/30/25 22:58 Course Orders Ordered: Discontinued Medications Fentanyl (Fentanyl 100 Mcg/2 Ml Inj) 50 mcg IV NOW ONE Stop: 05/31/25 04:53 Last Admin: 05/31/25 05:26 Dose: 50 mcg Documented By: ROLAND Ciprofloxacin (Cipro) 400 mg in 200 mls @ 200 mls/hr IV NOW ONE Stop: 05/31/25 06:09 Last Infusion: 05/31/25 07:15 Dose: Infused Documented By: Admin: 05/31/25 05:56 Dose: 200 mls/hr Documented By: ROLAND Metronidazole (Flagyl) 500 mg in 100 mls @ 100 mls/hr IV NOW ONE Stop: 05/31/25 06:09 Last Infusion: 05/31/25 06:53 Dose: Infused Documented By: Admin: 05/31/25 05:27 Dose: 100 mls/hr Documented By: ROLAND Ondansetron HCl (Ondansetron 4 Mg/2 Ml Inj) 4 mg IV NOW PRN PRN Reason: Nausea And Vomiting Ondansetron HCl (Ondansetron 4 Mg Odt) 4 mg PO NOW PRN PRN Reason: Nausea And Vomiting Ondansetron HCl (Ondansetron 4 Mg/2 Ml Inj) 4 mg IV NOW ONE Stop: 05/31/25 04:53 Last Admin: 05/31/25 05:27 Dose: 4 mg Documented By: ROLAND Vital Signs Vital signs: Vital Signs - 8 hr 05/30/25 22:58 Temperature 98.2 F Pulse Rate 78 Respiratory Rate 18 Blood Pressure 138/68 Pulse Oximetry 96 Oxygen Delivery Method Room Air MDM - Abdominal Pain Lab Data Attestation: I reviewed the patient's lab results. Lab results narrative: White blood cell count 85304, hemoglobin 12.9, platelets adequate. Glucose 117. Normal renal function, serum CO2, electrolytes. Liver functions and lipase normal. Urinalysis negative. 05/30/25 23:13 05/30/25 23:13 Labs: Lab Results 05/30/25 Range/Units 23:13 WBC 10.9 (4.5-11.0) X10^3/uL RBC 4.27 (4.0-5.2) X10^6/uL Hgb 12.9 (12.0-16.0) g/dL Hct 37.7 (36-46) % MCV 88.4 (80-100) fL MCH 30.3 (26-34) PG MCHC 34.2 (30-36) % RDW 13.9 (11.6-14.8) % Plt Count 286 (150-400) X10^3/uL Neut % (Auto) 76.2 H (50-75) % Lymph % (Auto) 15.4 L (25-40) % Love % (Auto) 5.9 (3-14) % Eos % (Auto) 1.6 L (2-4) % Baso % (Auto) 0.9 (0-2) % Neut # (Auto) 8300 H (4671-1240) /uL Lymph # (Auto) 1700 (3155-1386) /uL Love # (Auto) 600 (0-900) /uL Eos # (Auto) 200 (0-450) /uL Baso # (Auto) 100 (0-100) /uL Sodium 137 (137-145) mmol/L Potassium 4.3 (3.4-5.1) mmol/L Chloride 104 (98-107) mmol/L Carbon Dioxide 24 (22-32) mmol/L BUN 15 (7-17) mg/dL Creatinine 0.83 (0.52-1.04) mg/dL Estimated GFR > 60 (>60) mL/min BUN/Creatinine Ratio 18.1 (6-22) Glucose 117 H (70-99) mg/dL Calcium 9.4 (8.4-10.2) mg/dL Total Bilirubin 0.7 (0.2-1.3) mg/dL AST 31 (14-36) IU/L ALT 25 (<35) IU/L Alkaline Phosphatase 75 (38-126) U/L Total Protein 7.8 (6.3-8.2) g/dL Albumin 4.7 (3.5-5.0) g/dL Globulin 3.1 (1.7-4.1) g/dL Albumin/Globulin Ratio 1.5 (1.0-2.8) Lipase 53 (23-300) U/L Urine RBC 0-1/hpf (0-5/HPF) Urine WBC None seen (0-5/HPF) Ur Squamous Epith Cells None seen (0-5/HPF) Urine Bacteria None seen (None) Ur Culture Indicated? Cult not indicated Vol Urine Centrifuged 10ml (spun) Point of care testing: Urine Dip Bedside Urine Glucose Negative Bedside Urine Bilirubin - Negative Bedside Urine Ketone - Negative Urine Specific [place] 1.015 Bedside Urine Occult Blood + Bedside Urine pH 6.0 Bedside Urine Protein - Negative Bedside Urine Urobilinogen - Negative Bedside Urine Nitrite - Negative Bedside Urine Leukocytes - Negative Esterase MDM Narrative Medical decision making narrative: 75-year-old female with history of diverticulitis, has lower abdominal pain similar quality now for 3 days. Afebrile, sirs screen negative. Mild tenderness lower abdomen. Patient would like pain medications, believes that she can not take morphine and Dilaudid. We will give IV fentanyl/Zofran. Labs pending. DDx consider colitis, diverticulitis, constipation, adenitis, UTI, bowel obstruction, other. Lab data: White blood cell count 64857, hemoglobin 12.9, platelets adequate. Glucose 117. Normal renal function, serum CO2, electrolytes. Liver functions and lipase normal. Urinalysis negative. CT abdomen and pelvis with IV contrast. Impressions: ?Findings compatible with acute diverticulitis involving the mid sigmoid colon. No pericolonic focal drainable collection or pneumoperitoneum is identified.. See teleradiology report. History of drug allergy to penicillins and to sulfa. Blood culture requested. IV ciprofloxacin and IV Flagyl. Patient has tramadol to take at home if needed. Prescription sent to her pharmacy for further antibiotics ciprofloxacin and Flagyl. Advised not to drink alcohol while taking Flagyl due to potential interaction side effect nausea or vomiting. Recheck advised with the regular doctor later this week. Return precautions discussed. Discharge Plan Departure Patient Disposition: Home Clinical Impression: Diverticulitis Instructions: DI for Diverticulitis Activity Restrictions/Additional Instructions: Lower abdominal discomfort, history of diverticulitis, with similar symptoms recent days. No fever on triage. Mild tenderness lower abdominal quadrants. CT scanning abdomen and pelvis study showed diverticulitis that was uncomplicated at this time. No evidence of perforation, abscess, bowel obstruction. No symptoms of lower gastrointestinal bleeding. Trial of antibiotics. You are allergic to sulfa antibiotics and also penicillins. Trial of ciprofloxacin antibiotic as well as Flagyl/metronidazole antibiotic. IV doses given in the emergency department. Oral prescriptions prescription sent to your requested pharmacy, for 10 day course. Avoid alcohol while taking metronidazole, as the combination can induced nausea and vomiting. Take tramadol for pain control, you stated that you had a supply at home. Drink plenty of fluids. Continue your chronic regular medications for now as prescribed. Recheck advised with your regular doctor in the next couple of days. Return to this/nearest emergency department for any change worsening symptoms or any concerns prior. Prescriptions: New ciprofloxacin HCl [Cipro] 500 mg tablet 500 mg PO BID Qty: 20 0RF metronidazole 500 mg tablet 500 mg PO TID Qty: 30 0RF No Action lysine 500 MG tablet 500 mg PO QDAY Qty: 0 lutein 20 MG tablet 20 mg PO QDAY Qty: 0 GLUCOSAMINE/CHONDROITIN SULF A 1 cap PO QDAY Qty: 0 liothyronine [Cytomel] 5 MCG tablet 5 mcg PO BID Qty: 0 levothyroxine 137 MCG tablet 137 mcg PO QDAY Qty: 90 estradiol cream 1 applic vaginal 2XW Rx Instructions: twice weekly compounded cream meclizine 25 mg tablet 25 mg PO TID PRN (Reason: dizziness) Qty: 10 0RF promethazine 25 mg suppository 25 mg [place] Q6H PRN (Reason: nausea and vomiting) Qty: 12 0RF ondansetron 4 mg tablet,disintegrating 4 mg PO Q8H PRN (Reason: nausea and vomiting) Qty: 10 0RF meclizine 25 mg tablet 25 mg PO BID-TID PRN (Reason: dizziness) Qty: 14 0RF pantoprazole [Protonix] 40 mg tablet,delayed release (DR/EC) 40 mg PO DAILY Qty: 30 0RF diltiazem HCl 30 mg tablet 30 mg PO TID Qty: 30 0RF promethazine 25 mg tablet 25 mg PO Q6H PRN (Reason: nausea and vomiting) Qty: 10 0RF promethazine 25 mg suppository 25 mg [place] Q6H PRN (Reason: nausea and vomiting) Qty: 12 0RF meclizine 25 mg tablet 25 mg PO BID PRN (Reason: dizziness) Qty: 30 0RF meclizine 25 mg tablet 25 mg PO BID PRN (Reason: dizziness) Qty: 30 0RF Referrals: Kade Fernandez ARNP [Primary Care Provider, Naturopathy] Stand Alone Forms: Patient Portal/API
[2025-05-31] MEDS: fentaNYL 100 MCG/2 ML INJ 50 MCG IV (05:26)
[2025-05-31] MEDS: ONDANSETRON 4 MG/2 ML INJ IV (05:27)
[2025-05-31] MEDS: metroNIDAZOLE 500 MG/100 ML PIGGYBACK 100 MG IV (05:27)
[2025-05-31] MEDS: CIPROFLOXACIN 400 MG/200 ML PIGGYBACK 200 MG IV (05:56)
== END 2025-05-31 07:38 | disposition home or self-care (01) ==
PROVIDERS: Emergency Provider Emergency Medicine; PCP Registered Nurse
DX: K57.92 Diverticulitis of intestine, part unspecified, without perforation or abscess without bleeding (principal)
CPT/HCPCS: 36415; 74177; 80053; 81003; 81015; 83690; 85025; 87086; 96365; 96367; 96375; 99284; J0744; J2405; J3010; Q9967

== ENCOUNTER → 2025-08-17 14:36 | Outpatient (CLI) | payer MEDICARE, BC, SELFPAY ==
[2022-08-01 15:12] VITALS: BMI 31.0
--- NOTE | 2025-08-17 14:38 | DI.MG.S_ITS ---
MM screening mammo BI: 08/17/2025. BI-RADS: 1 CLINICAL: 75-year old female for bilateral screening mammogram. Tyrer-Cuzick lifetime risk of 2.7%. No personal or first-degree family history of breast cancer. PRIOR EXAMS 06/24/2024, 06/04/2023, 05/17/2023, 07/08/2021, 05/12/2020, 04/01/2019, MAMMOGRAPHY TECHNIQUE: 2D and 3D (tomosynthesis) digital mammographic views obtained, with additional images as needed for full coverage. Current study was also evaluated with a Computer Aided Detection (CAD) system. DENSITY B. There are scattered areas of fibroglandular density. MAMMOGRAPHY FINDINGS Bilateral: No suspicious mass, asymmetry, microcalcification, or other abnormality seen. IMPRESSION: * No evidence of malignancy. RECOMMENDATIONS Bilateral * Annual screening mammography. OVERALL ASSESSMENT CATEGORY BI-RADS-1: Negative. The [employer] recommends annual screening mammography beginning at age 40 for women with average risk of breast cancer. ELECTRONICALLY SIGNED: Demarco hSoemaker M.D. on 08/18/2025 at 12:21:05 PM PT Interpreting Station ID: [id number]
== END ==
LOC: MAMMO 14:37
PROVIDERS: PCP Registered Nurse; Referring Provider Registered Nurse; Visit Provider Registered Nurse
DX: Z12.31 Encounter for screening mammogram for malignant neoplasm of breast (principal)
CPT/HCPCS: 77063; 77067

== ENCOUNTER 2025-09-06 16:56 | Emergency (ER) | payer MEDICARE, BC, SELFPAY ==
[2022-08-01 15:12] VITALS: BMI 31.0
[2025-09-06] VITALS (9 sets, daily range): BP systolic 123–168; BP diastolic 60–85; PULSE 59–80; RESP 18–23; TEMP 37.3; O2SAT 98–99; BMI 30.2
--- NOTE | 2025-09-06 17:00 | EKG_ITS ---
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
--- NOTE | 2025-09-06 17:00 | DI.RAD.S_ITS ---
PROCEDURE: XR CHEST 1V INDICATIONS: Chest Pain TECHNIQUE: One view of the chest was acquired. COMPARISON: [facility], CR, XR CHEST 1V, 10/25/2024, 13:06. FINDINGS: Surgical changes and devices: None. Lungs and pleura: Lungs are clear. No pleural effusions or pneumothorax. Mediastinum: Mediastinal contours appear normal. Heart size is normal. Bones and chest wall: No suspicious bony lesions. Overlying soft tissues appear unremarkable. IMPRESSION: No acute cardiopulmonary abnormality is seen. Dictated by: Alistair Gandhi M.D. on 09/06/2025 at 17:45 Approved by: Alistair Gandhi M.D. on 09/06/2025 at 17:46
[2025-09-06 17:28] LABS: Add Manual Diff / Slide Review NO; Hematocrit 39.0 % (36-46); Hemoglobin 13.4 g/dL (12.0-16.0); Lymphocytes Absolute Auto 2900 /uL (1100-4500); Mean Corpuscular HGB Conc 34.4 % (30-36); Mean Corpuscular Hemoglobin 30.1 PG (26-34); Mean Corpuscular Volume 87.3 fL (80-100); Platelet Count 297 X10^3/uL (150-400)
[2025-09-06 17:42] LABS: INR 0.9 (0.9-1.3); Prothrombin Time 10.4 SECONDS (9.4-12.5)
[2025-09-06 17:44] LABS: PTT Partial Thromboplastin Tim 30 SECONDS (25.1-36.5)
[2025-09-06 17:45] LABS: Alanine Aminotransferase 40 IU/L (<35); Albumin 4.8 g/dL (3.5-5.0); Albumin Globulin Ratio 1.5 (1.0-2.8); Alkaline Phosphatase 77 U/L (38-126); Blood Urea Nitrogen 13 mg/dL (7-17); Calcium 9.3 mg/dL (8.4-10.2); Carbon Dioxide 24 mmol/L (22-32); Chloride 105 mmol/L (98-107); Creatine Kinase 104 U/L (30-135); Estimated Glomerular Filt Rate > 60 mL/min (>60); Globulin 3.3 g/dL (1.7-4.1); Glucose 116 mg/dL (70-99); HEMOLYSIS 17 (0-50); Lipase 55 U/L (23-300); Magnesium 2.1 mg/dL (1.6-2.3); Potassium 4.1 mmol/L (3.4-5.1); Sodium 138 mmol/L (137-145); Total Protein 8.1 g/dL (6.3-8.2)
[2025-09-06 17:56] LABS: NT-proBNP (BNP-Adult 18+) 21 pg/mL (<125); Troponin I < 0.012 ng/mL (0.01-0.034)
--- NOTE | 2025-09-06 19:13 | EKG_ITS ---
[address] [address] Test Date: 2025-09-06 Pat Name: Angelica Stweart Department: [facility] Room: Gender: Female Caser: MILENA : 1950 Requested By: Order Number: [id number] Reading MD: Sandoval Dutton Measurements Intervals [place] Rate: 64 P: 67 [place]: 220 QRS: -9 QRSD: 94 T: 27 QT: 414 QTc: 427 Interpretive Statements Sinus rhythm with 1st degree AV block Incomplete right bundle branch block Electronically Signed On 09-07-2025 10:42:23 PST by Sandoval Dutton
[2025-09-06 20:03] LABS: Troponin I < 0.012 ng/mL (0.01-0.034)
--- NOTE | 2025-09-06 20:25 | ED.CHESTPAIN ---
HPI - Chest Pain General Chief Complaint: Chest Pain Stated Complaint: phys ref, chest pain today resolved now Time Seen by Provider: 09/06/25 17:01 Source: patient Mode of arrival: Ambulatory History of Present Illness HPI narrative: Patient is a 75-year-old female who presents to the ED at the recommendation of her pricing coordinator for evaluation of exertional chest pain. Her past medical history is significant for atrial fibrillation, for which she takes aspirin, hypothyroidism, diverticulitis. She reports that after walking approximately two miles, she developed substernal, non?radiating, squeezing chest pain. The episode was not associated with dyspnea, nausea, or vomiting. At the time of evaluation, she is asymptomatic and denies any current chest pain. Related Data Home Medications ?Medication ?Instructions ?Recorded ?Confirmed GLUCOSAMINE/CHONDROITIN SULF A 1 cap PO QDAY ##0 04/15/16 01/15/21 levothyroxine 137 mcg tablet 137 mcg PO QDAY ##90 04/15/16 01/15/21 liothyronine 5 mcg tablet (Cytomel) 5 mcg PO BID #0 tabs 04/15/16 01/15/21 lutein 20 mg tablet 20 mg PO QDAY ##0 04/15/16 01/15/21 lysine 500 mg tablet 500 mg PO QDAY ##0 04/15/16 01/15/21 estradiol 1 applic vaginal 2XW 12/08/20 01/15/21 Previous Rx's ?Medication ?Instructions ?Recorded meclizine 25 mg tablet 25 mg PO TID PRN dizziness #10 tabs 10/21/21 promethazine 25 mg rectal 25 mg AK Q6H PRN nausea and 10/21/21 suppository vomiting #12 ea ondansetron 4 mg disintegrating 4 mg PO Q8H PRN nausea and 11/20/21 tablet vomiting #10 tabs meclizine 25 mg tablet 25 mg PO BID-TID PRN dizziness #14 10/24/22 tabs pantoprazole 40 mg tablet,delayed 40 mg PO DAILY #30 tabs 10/24/22 release (Protonix) diltiazem HCl 30 mg tablet 30 mg PO TID #30 tabs 09/12/23 meclizine 25 mg tablet 25 mg PO BID PRN dizziness #30 tabs 12/17/23 meclizine 25 mg tablet 25 mg PO BID PRN dizziness #30 tabs 12/17/23 promethazine 25 mg rectal 25 mg AK Q6H PRN nausea and 10/21/24 suppository vomiting #12 ea promethazine 25 mg tablet 25 mg PO Q6H PRN nausea and 10/21/24 vomiting #10 tabs ciprofloxacin HCl 500 mg tablet 500 mg PO BID #20 tabs 05/31/25 (Cipro) metronidazole 500 mg tablet 500 mg PO TID #30 tabs 05/31/25 Allergies Allergy/AdvReac Type Severity Reaction Status Date / Time ampicillin (AMPICILLIN) Allergy Unknown Verified 09/06/25 17:01 hydrocodone (HYDROCODONE) Allergy Unknown Verified 09/06/25 17:01 morphine (MORPHINE) Allergy Unknown Verified 09/06/25 17:01 Penicillins (PENICILLINS) Allergy Unknown Verified 09/06/25 17:01 Sulfa (Sulfonamide Allergy Unknown Verified 09/06/25 17:01 Antibiotics) (SULFA (SULFONAMIDE ANTIBIOTICS)) amoxicillin Allergy Verified 09/06/25 17:01 ondansetron AdvReac Mild Vomiting Verified 09/06/25 17:01 Review of Systems Review of Systems Narrative: See HPI. Patient History Medical History Diverticulitis Hypothyroidism Surgical History History of uterine suspension procedure Social History household members: none Smoking Status: Never smoker alcohol intake: current Smoking Status: Never smoker alcohol intake frequency: a few times a month Exam Narrative Exam Narrative: Vitals: Afebrile, hypertensive, normal vitals signs Gen: Well developed, well nourished, no acute distressed Card: Regular, no murmurs, rubs, or gallops Pulm: No increased work of breathing, clear to auscultation bilateraly Abd: Soft nondistended, nontendern to palpation Ext: No edema in bilaterally lower extremity Neuro: A&O x 4, CN grossly intact, moving all 4 extremities spontaneous Psych: Appropriate Initial Vital Signs Initial Vital Signs: Vital Signs Temperature 99.1 F 09/06/25 17:01 Pulse Rate 80 09/06/25 17:01 Respiratory Rate 18 09/06/25 17:01 Blood Pressure 168/76 H 09/06/25 17:01 Pulse Oximetry 98 09/06/25 17:01 Oxygen Delivery Method Room Air 09/06/25 17:01 Scores HEART Score Heart Score history: Slightly Suspicious Heart Score EKG: Non-Specific repolarization disturbance Heart Score Age: > or = 65 years old Heart Score risk factors: 1-2 risk factors Heart Score troponin: < or = to normal limit Heart Score Total: 4 Course Orders Ordered: Discontinued Medications Aspirin (Aspirin 81 Mg Chew Tab) 324 mg PO NOW ONE Stop: 09/06/25 17:01 Last Admin: 09/06/25 20:19 Dose: Not Given Documented By: SOSA Vital Signs Vital signs: Vital Signs - 8 hr 09/06/25 17:01 Temperature 99.1 F Pulse Rate 80 Respiratory Rate 18 Blood Pressure 168/76 H Pulse Oximetry 98 Oxygen Delivery Method Room Air MDM - Chest Pain Lab Data 09/06/25 17:13 09/06/25 17:13 Labs: Lab Results 09/06/25 09/06/25 Range/Units 17:13 19:24 WBC 7.6 (4.5-11.0) X10^3/uL RBC 4.47 (4.0-5.2) X10^6/uL Hgb 13.4 (12.0-16.0) g/dL Hct 39.0 (36-46) % MCV 87.3 (80-100) fL MCH 30.1 (26-34) PG MCHC 34.4 (30-36) % RDW 14.4 (11.6-14.8) % Plt Count 297 (150-400) X10^3/uL Neut % (Auto) 46.5 L (50-75) % Lymph % (Auto) 37.4 (25-40) % Sanders % (Auto) 6.5 (3-14) % Eos % (Auto) 8.4 H (2-4) % Baso % (Auto) 1.2 (0-2) % Neut # (Auto) 3600 (2104-7013) /uL Lymph # (Auto) 2900 (9003-4204) /uL Sanders # (Auto) 500 (0-900) /uL Eos # (Auto) 600 H (0-450) /uL Baso # (Auto) 100 (0-100) /uL PT 10.4 (9.4-12.5) SECONDS INR 0.9 (0.9-1.3) APTT 30 (25.1-36.5) SECONDS Sodium 138 (137-145) mmol/L Potassium 4.1 (3.4-5.1) mmol/L Chloride 105 (98-107) mmol/L Carbon Dioxide 24 (22-32) mmol/L BUN 13 (7-17) mg/dL Creatinine 0.74 (0.52-1.04) mg/dL Estimated GFR > 60 (>60) mL/min BUN/Creatinine Ratio 17.6 (6-22) Glucose 116 H (70-99) mg/dL Calcium 9.3 (8.4-10.2) mg/dL Magnesium 2.1 (1.6-2.3) mg/dL Total Bilirubin 0.3 (0.2-1.3) mg/dL AST 40 H (14-36) IU/L ALT 40 H (<35) IU/L Alkaline Phosphatase 77 (38-126) U/L Total Creatine Kinase 104 (30-135) U/L Troponin I < 0.012 < 0.012 (0.01-0.034) ng/mL NT-Pro-B Natriuret Pep 21 (<125) pg/mL Total Protein 8.1 (6.3-8.2) g/dL Albumin 4.8 (3.5-5.0) g/dL Globulin 3.3 (1.7-4.1) g/dL Albumin/Globulin Ratio 1.5 (1.0-2.8) Lipase 55 (23-300) U/L Imaging Data Chest x-ray: Radiologist's Impression: PROCEDURE: XR CHEST 1V INDICATIONS: Chest Pain TECHNIQUE: One view of the chest was acquired. COMPARISON: [facility], CR, XR CHEST 1V, 10/25/2024, 13:06. FINDINGS: Surgical changes and devices: None. Lungs and pleura: Lungs are clear. No pleural effusions or pneumothorax. Mediastinum: Mediastinal contours appear normal. Heart size is normal. Bones and chest wall: No suspicious bony lesions. Overlying soft tissues appear unremarkable. IMPRESSION: No acute cardiopulmonary abnormality is seen. MDM Narrative Medical decision making narrative: Patient is a 72 year old female with a history of atrial fibrillation who presents to the ED at the request of his her pricing coordinator for exertional chest pains without any other associated symptoms. -- EMR Review: Briefly reviewed. -- Differential diagnosis: ACS to include STEMI, NSTEMI, unstable angina; less likely PE, cardiac tamponade, aortic dissection, other. -- Labs: CBC without leukocytosis or left shift, no anemia, normal platelets. Coags normal. Chem panel with normal electrolytes, AST ALT were both 40 and mildly elevated. Serial troponins undetectable. -- Imaging: Chest x-ray without any acute cardiopulmonary processes. -- EK:00 normal sinus rhythm, HR 74, AK 202, QT 382, QTC 424, left axis deviation, minimal voltage criteria in all leads, poor R-wave progression, incomplete right bundle-branch, no ectopy, no of ischemia. This was compared to EKG obtained on 10/25/2024 which is largely unchanged. 19:42 EKG with sinus rhythm and first-degree heart block, rate 64, AK 220, QT 141, QTC 427, left axis deviation, minimal voltage in all leads, incomplete right bundle branch block, no ischemia. -- Consults: None. ED course: The patient is a 75 year old female with cardiac history including atrial fibrillation who presented after experiencing substernal chest pain with exertion. In the ED she was hypertensive, with all other vital signs within normal limits. Her physical exam was unremarkable, and she was asymptomatic at the time of evaluation. Her ACS workup was negative for acute coronary syndrome, and her HEART score was 4, placing her in an intermediate risk category. I discussed the option of admission for observation and further cardiac evaluation; however, the patient elected discharge with close outpatient follow up. She was counseled extensively on strict return precautions, including recurrence or worsening of chest pain. She was discharged in stable condition. Discharge Plan Departure Patient Disposition: Home Clinical Impression: Chest pain Activity Restrictions/Additional Instructions: You were seen in the emergency department for chest pain. In the ER: -- Cardiac workup to include chest x-ray, EKG, cardiac enzymes x 2 were not suggestive of a heart attack Plan: -- Follow up with your primary care physician or pricing coordinator for your ER visit today Return to the ER if you develop any new or worsening symptoms. Prescriptions: No Action lysine 500 MG tablet 500 mg PO QDAY Qty: 0 lutein 20 MG tablet 20 mg PO QDAY Qty: 0 GLUCOSAMINE/CHONDROITIN SULF A 1 cap PO QDAY Qty: 0 liothyronine [Cytomel] 5 MCG tablet 5 mcg PO BID Qty: 0 levothyroxine 137 MCG tablet 137 mcg PO QDAY Qty: 90 estradiol cream 1 applic vaginal 2XW Rx Instructions: twice weekly compounded cream meclizine 25 mg tablet 25 mg PO TID PRN (Reason: dizziness) Qty: 10 0RF promethazine 25 mg suppository 25 mg AK Q6H PRN (Reason: nausea and vomiting) Qty: 12 0RF ondansetron 4 mg tablet,disintegrating 4 mg PO Q8H PRN (Reason: nausea and vomiting) Qty: 10 0RF meclizine 25 mg tablet 25 mg PO BID-TID PRN (Reason: dizziness) Qty: 14 0RF pantoprazole [Protonix] 40 mg tablet,delayed release (DR/EC) 40 mg PO DAILY Qty: 30 0RF diltiazem HCl 30 mg tablet 30 mg PO TID Qty: 30 0RF promethazine 25 mg tablet 25 mg PO Q6H PRN (Reason: nausea and vomiting) Qty: 10 0RF promethazine 25 mg suppository 25 mg AK Q6H PRN (Reason: nausea and vomiting) Qty: 12 0RF ciprofloxacin HCl [Cipro] 500 mg tablet 500 mg PO BID Qty: 20 0RF metronidazole 500 mg tablet 500 mg PO TID Qty: 30 0RF meclizine 25 mg tablet 25 mg PO BID PRN (Reason: dizziness) Qty: 30 0RF meclizine 25 mg tablet 25 mg PO BID PRN (Reason: dizziness) Qty: 30 0RF Referrals: Kade Fernandez ARNP [Primary Care Provider, Naturopathy] Stand Alone Forms: Patient Portal/API
== END 2025-09-06 20:47 | disposition home or self-care (01) ==
PROVIDERS: Emergency Provider Student in an Organized Health Care Education/Training Program; PCP Registered Nurse
DX: R07.9 Chest pain, unspecified (principal); I48.91 Unspecified atrial fibrillation; I10 Essential (primary) hypertension; Z79.82 Long term (current) use of aspirin
CPT/HCPCS: 36415; 71045; 80053; 82550; 83690; 83735; 83880; 84484; 85025; 85610; 85730; 93005; 99283; 99284